=== PATIENT | female | born 1980 | race Caucasian/White ===

== ENCOUNTER 2020-08-05 06:53 | Outpatient (REF) | payer OTHER, SELFPAY ==
[2020-08-06 18:41] LABS: Follicle Stimulating Hormone 4.1 mIU/mL
== END 2020-08-05 06:54 | disposition home or self-care (01) ==
LOC: HO.LAB 06:53
PROVIDERS: PCP Nurse Practitioner Family; Visit Provider Advanced Practice Midwife
DX: N92.6 Irregular menstruation, unspecified (principal)
CPT/HCPCS: 83001

== ENCOUNTER 2020-08-19 11:13 | Outpatient (REF) | payer OTHER, SELFPAY ==
--- NOTE | 2020-08-19 | US_ITS ---
EXAMINATION: US PELVIS COMPLETE. US TRANSVAGINAL CLINICAL INFORMATION: Irregular menstruation. COMPARISON: None TECHNIQUE: Transabdominal and transvaginal ultrasound of the pelvis is performed. FINDINGS: The uterus is anteverted measuring 10.3 cm in length, 3.5 cm in AP and 5.0 cm wide. The endometrial thickness is 0.5 cm. No focal lesion seen. The cervix appears unremarkable. Right ovary measures 3.1 x 3.0 x 1.7 cm and volume of 8.3 mL. There is a complex echogenic heterogeneous cyst likely hemorrhagic cyst measuring 2.1 x 1.7 x 1.9 cm. Previously right ovary measured 2.7 x 1.3 x 2.1 cm and volume of 3.9 mL. The left ovary measures 2.6 x 1.1 x 1.8 cm and volume of 2.7 mL. It appears unremarkable. Previously left ovary measured 3.5 x 2.6 x 3.1 cm and 14.5 mL volume. There is no free fluid in the cul-de-sac. US/US transvaginal IMPRESSION: Complex hemorrhagic cyst in right ovary. The uterus and left ovary is unremarkable.
--- NOTE | 2020-08-19 11:50 | US_ITS ---
EXAMINATION: US PELVIS COMPLETE. US TRANSVAGINAL CLINICAL INFORMATION: Irregular menstruation. COMPARISON: None TECHNIQUE: Transabdominal and transvaginal ultrasound of the pelvis is performed. FINDINGS: The uterus is anteverted measuring 10.3 cm in length, 3.5 cm in AP and 5.0 cm wide. The endometrial thickness is 0.5 cm. No focal lesion seen. The cervix appears unremarkable. Right ovary measures 3.1 x 3.0 x 1.7 cm and volume of 8.3 mL. There is a complex echogenic heterogeneous cyst likely hemorrhagic cyst measuring 2.1 x 1.7 x 1.9 cm. Previously right ovary measured 2.7 x 1.3 x 2.1 cm and volume of 3.9 mL. The left ovary measures 2.6 x 1.1 x 1.8 cm and volume of 2.7 mL. It appears unremarkable. Previously left ovary measured 3.5 x 2.6 x 3.1 cm and 14.5 mL volume. There is no free fluid in the cul-de-sac. US/US pelvic complete IMPRESSION: Complex hemorrhagic cyst in right ovary. The uterus and left ovary is unremarkable.
== END 2020-08-19 11:14 | disposition home or self-care (01) ==
LOC: HO.US 11:13
PROVIDERS: PCP Nurse Practitioner Family; Visit Provider Advanced Practice Midwife
DX: N92.6 Irregular menstruation, unspecified (principal)
CPT/HCPCS: 76830; 76856

== ENCOUNTER → 2020-09-02 15:18 | Outpatient (BNVA) | payer OTHER, MEDICAID, SELFPAY | PROVIDERS: PCP Nurse Practitioner Family; Visit Provider Advanced Practice Midwife | DX: Z76.89 Persons encountering health services in other specified circumstances (principal) ==

== ENCOUNTER 2020-11-02 09:32 | Outpatient (REF) | payer OTHER, SELFPAY ==
--- NOTE | 2020-11-02 09:30 | EMG_ITS ---
HISTORY OF PRESENT ILLNESS: This is a 39-year-old woman, who has intermittent numbness in the big toes and pain and numbness in the lateral aspect of the right leg that started in last winter about a year ago. It has been worse since November. She is on no medications, has no other medical problems. PHYSICAL EXAMINATION: On examination, she is alert and oriented with normal intellectual functions. Her cranial nerves II through XII are normal. Muscle tone and strength are normal in all 4 extremities. Deep tendon reflexes symmetrical, 2+, plantar responses are flexor. IMPRESSION: Rule out peripheral neuropathy. Nerve conduction study: Normal motor and sensory nerve conduction study of the lower extremities. Normal EMG of the right L4-S1 innervated muscles. MD CINTHIA Galdamez/MADAN / [id number]
== END 2020-11-02 09:33 | disposition home or self-care (01) ==
LOC: HO.NEURO 09:32
PROVIDERS: PCP Nurse Practitioner Family; Visit Provider Nurse Practitioner Family
DX: M54.5 Low back pain (principal); R20.2 Paresthesia of skin
CPT/HCPCS: 95860; 95886; 95912

== ENCOUNTER 2020-11-05 08:52 | Outpatient (REF) | payer OTHER, SELFPAY ==
[2020-11-05 09:28] LABS: Hematocrit 40.2 % (37-47); Hemoglobin 13.5 g/dl (12.0-16.0); Mean Corpuscular HGB Conc 33.6 g/dl (31.0-35.0); Mean Corpuscular Hemoglobin 29.9 pg (27.0-33.0); Mean Corpuscular Volume 89.1 fL (80-98); Mean Platelet Volume 9.3 fL (9.4-12.3); Platelet Count 285 X10*3/uL (160-400); Red Blood Count 4.51 X10*6/uL (4.20-5.50); Red Cell Distribution Width 12.1 % (11.0-16.0); White Blood Count 6.3 X10*3/uL (4.8-10.8)
[2020-11-05 09:50] LABS: Alanine Aminotransferase 13 U/L (0-31); Albumin Level 4.4 g/dL (3.5-5.0); Alkaline Phosphatase 84 U/L (39-117); Anion Gap 13 (12-20); Aspartate Amino Transferase 21 U/L (5-31); Bilirubin Total 0.6 mg/dL (0.0-1.0); Blood Urea Nitrogen 15 mg/dL (9-16); Calcium 9.4 mg/dL (8.4-10.2); Carbon Dioxide 31 mmol/L (22-29); Chloride 102 mmol/L (96-108); Cholesterol 203 mg/dL; Estimated Glomerular Filt Rate > 60; Glucose Fasting 106 mg/dL (60-99); HDL Cholesterol 72 mg/dL; LDL Cholesterol Calculated 117 mg/dl; Potassium 4.4 mmol/l (3.3-5.1); Sodium 142 mmol/L (135-145); Total Protein 7.4 g/dL (6.5-8.0); Triglycerides 74 mg/dL
[2020-11-05 10:12] LABS: TSH reflex Free T4 2.13 mIU/mL (0.32-4.0); Vitamin D 25-OH Total 29.6 ng/mL (>30)
[2020-11-05 11:38] LABS: Estimated Average Glucose 105 mg/dL; Hemoglobin A1c % 5.3 %
[2020-11-07 04:28] LABS: Folate 18.7 ng/mL (> or = 4.0); Vitamin B12 509 pg/mL (200-900)
[2020-11-09 12:17] LABS: Vitamin B1 22 nmol/L (8-30)
== END 2020-11-05 08:53 | disposition home or self-care (01) ==
LOC: HO.LAB 08:52
PROVIDERS: PCP Nurse Practitioner Family; Visit Provider Nurse Practitioner Family
DX: E55.9 Vitamin D deficiency, unspecified (principal); K58.0 Irritable bowel syndrome with diarrhea; R20.2 Paresthesia of skin
CPT/HCPCS: 36415; 80053; 80061; 82306; 82607; 82746; 83036; 84425; 84443; 85027

== ENCOUNTER 2020-11-07 13:40 | Outpatient (REF) | payer OTHER, SELFPAY ==
--- NOTE | 2020-11-07 13:46 | US_ITS ---
EXAMINATION: US PELVIS COMPLETE US TRANSVAGINAL CLINICAL INFORMATION: Right ovarian cyst. COMPARISON: Ultrasound pelvis 08/19/2020 TECHNIQUE: Transabdominal and transvaginal ultrasound of the pelvis was performed. FINDINGS: The uterus is anteflexed and anteverted measuring 7.9 cm in length, 3.3 cm in AP and 4.6 cm in transverse dimension. The endometrial thickness is 0.6 cm. No focal uterine lesions seen. There are small nabothian cysts seen in the cervix. Both ovaries are not seen well. There is no free fluid in the cul-de-sac. US/US transvaginal IMPRESSION: Multiple small cervical nabothian cysts. The uterus is unremarkable. The ovaries are not seen.
--- NOTE | 2020-11-07 13:46 | US_ITS ---
EXAMINATION: US PELVIS COMPLETE US TRANSVAGINAL CLINICAL INFORMATION: Right ovarian cyst. COMPARISON: Ultrasound pelvis 08/19/2020 TECHNIQUE: Transabdominal and transvaginal ultrasound of the pelvis was performed. FINDINGS: The uterus is anteflexed and anteverted measuring 7.9 cm in length, 3.3 cm in AP and 4.6 cm in transverse dimension. The endometrial thickness is 0.6 cm. No focal uterine lesions seen. There are small nabothian cysts seen in the cervix. Both ovaries are not seen well. There is no free fluid in the cul-de-sac. US/US pelvic complete IMPRESSION: Multiple small cervical nabothian cysts. The uterus is unremarkable. The ovaries are not seen.
== END 2020-11-07 13:41 | disposition home or self-care (01) ==
LOC: HO.US 13:40
PROVIDERS: PCP Nurse Practitioner Family; Visit Provider Advanced Practice Midwife
DX: N83.291 Other ovarian cyst, right side (principal)
CPT/HCPCS: 76830; 76856

== ENCOUNTER → 2020-11-09 12:18 | Outpatient (BNVA) | payer OTHER, SELFPAY | PROVIDERS: PCP Nurse Practitioner Family; Visit Provider Advanced Practice Midwife | DX: Z76.89 Persons encountering health services in other specified circumstances (principal) ==

== ENCOUNTER 2020-12-27 13:03 | Outpatient (REF) | payer OTHER, SELFPAY ==
[2020-12-28 11:26] LABS: Follicle Stimulating Hormone 63.3 mIU/mL
== END 2020-12-27 13:04 | disposition home or self-care (01) ==
LOC: HO.LAB 13:03
PROVIDERS: PCP Nurse Practitioner Family; Visit Provider Advanced Practice Midwife
DX: R23.2 Flushing (principal); N92.6 Irregular menstruation, unspecified; Z32.02 Encounter for pregnancy test, result negative
CPT/HCPCS: 36415; 81025; 83001

== ENCOUNTER 2021-01-25 06:43 | Outpatient (REF) | payer OTHER, SELFPAY ==
[2021-01-25 07:34] LABS: Hematocrit 39.5 % (37-47); Hemoglobin 13.4 g/dl (12.0-16.0); Mean Corpuscular HGB Conc 33.9 g/dl (31.0-35.0); Mean Corpuscular Hemoglobin 30.2 pg (27.0-33.0); Mean Platelet Volume 9.6 fL (9.4-12.3); Platelet Count 281 X10*3/uL (160-400); Red Blood Count 4.44 X10*6/uL (4.20-5.50); Red Cell Distribution Width 12.5 % (11.0-16.0); White Blood Count 5.3 X10*3/uL (4.8-10.8)
[2021-01-25 07:52] LABS: Anion Gap 12 (12-20); Blood Urea Nitrogen 13 mg/dL (9-16); Calcium 8.7 mg/dL (8.4-10.2); Carbon Dioxide 28 mmol/L (22-29); Chloride 104 mmol/L (96-108); Cholesterol 196 mg/dL; Estimated Glomerular Filt Rate > 60; Glucose Random 112 mg/dL (60-115); HDL Cholesterol 62 mg/dL; LDL Cholesterol Calculated 112 mg/dl; Potassium 4.2 mmol/L (3.3-5.1); Sodium 140 mmol/L (135-145); Triglycerides 113 mg/dL
[2021-01-25 08:02] LABS: Estimated Average Glucose 97 mg/dL
[2021-01-25 08:13] LABS: TSH reflex Free T4 3.63 uIU/mL (0.32-4.0); Vitamin D 25-OH Total 23.1 ng/mL (>30)
== END 2021-01-25 06:44 | disposition home or self-care (01) ==
LOC: HO.LAB 06:43
PROVIDERS: PCP Nurse Practitioner Family; Visit Provider Nurse Practitioner Family
DX: E55.9 Vitamin D deficiency, unspecified (principal); K58.0 Irritable bowel syndrome with diarrhea; Z71.89 Other specified counseling
CPT/HCPCS: 36415; 80048; 80061; 82306; 83036; 84443; 85027

== ENCOUNTER → 2021-03-17 14:39 | Outpatient (BNVA) | payer OTHER, SELFPAY | PROVIDERS: Visit Provider Advanced Practice Midwife | DX: Z32.02 Encounter for pregnancy test, result negative (principal); R23.2 Flushing ==

== ENCOUNTER → 2021-06-08 13:58 | Outpatient (BNVA) | payer OTHER, SELFPAY | PROVIDERS: Visit Provider Nurse Practitioner ==

== ENCOUNTER 2021-06-14 15:13 | Outpatient (REF) | payer OTHER, SELFPAY ==
--- NOTE | 2021-06-14 16:35 | MHC.AU.ANR ---
Adult Audiological Evaluation Date of Visit: 06/14/21 Reason for Appointment: Audiological evaluation due to concern for tinnitus, decreased hearing, and middle-ear dysfunction in the left ear. Patient reports that ~4 weeks ago her hearing decreased significantly in her left ear and she had an ear infection. She was treated with antibiotics, allergy medication, and nasal spray. She states that it took about 3 weeks to get relief and on SaturdayJune 10 her hearing in the left ear finally began to improve. She notes that she now hears constant ringing in the left ear even since her hearing has improved, which she finds bothersome and affects her ability to fall asleep. She notes continued intermittent pain in the left ear. She denies any concerns for hearing for her right ear or concerns for the left ear prior to this recent ear infection. Does patient feel they have a hearing loss?: Yes If Yes, Which Ear?: Left Ear When Was Hearing Difficulty First Noticed?: ~ 4 weeks ago Has hearing been tested previously?: No Hearing Handicap Inventory: HHIE SCORE: 12 Based on HHIE score, patient has: Mild to moderate perceived hearing handicap Ear History: Recent Ear Pain: Left Ear Recent Ear Infections: Left Ear Bothersome Tinnitus/Ringing/Noises in Ears: Left Ear Medical History: Medical History: Headache, Migraines Medical History (Other): Allergies, previously got allergy shots Allergies: Seafood Medication List: Sumatriptan succinate 50 mg PRN, Nortriptyline HCl 50 mg daily, Flonase, Creon before eating, cholestyramine, baclofen 10 mg PRN, ipratropium bromide nasal spray, Ciprodex ear drops, loratadine 10 mg Otoscopy: Right Ear: Unremarkable Left Ear: Unremarkable Tympanometry: Tympanometry performed due to: History of middle ear dysfunction Right Ear: Normal Middle Ear System (Type A) Left Ear: Hypercompliant Middle Ear System (Type Ad) Hearing Evaluation: Transducer(s) Used: Insert Earphones, Bone Conduction Method: Conventional Audiometry Stimuli Used: Pure Tones Right Ear: Description of Hearing: Normal hearing from 250-8000 Hz. Left Ear: Description of Hearing: Normal hearing from 250-8000 Hz. Hearing in the left ear is 10 dBHL worse at 250 Hz and 15 dBHL worse at 500 Hz than the right ear. Speech Recognition Threshold (SRT): Method Used: Monitored Live Voice Stimuli Used: Spondee Words Right Ear: 0 dBHL Left Ear: 10 dBHL Word Discrimination: Method: Recorded Lists Word Lists Used: NU-6 Right Ear: 100% at 50 dBHL Left Ear: 100% at 50 dBHL Recommendations: Audiological re-evaluation if changes are noted. Overall normal hearing today. Recommend patient monitor her symptoms and return for a repeat audiogram if changes are noted. If patient frequently gets otitis media, may consider a consultation with otolaryngology. Diagnosis: Primary Diagnosis: H93.12 Tinnitus, Left Ear Secondary Diagnosis: H69.92 Unspecified Eustachian Tube Dysfunction, Left Ear Services Performed: Services Performed: Comprehensive Audiological Evaluation (CPT 98924) Tympanometry (CPT 19301) Signature: Provider: Mandi Olivarez, [facility]
== END 2021-06-14 15:14 | disposition home or self-care (01) ==
LOC: HO.SH 15:13
PROVIDERS: Visit Provider General Practice
DX: H93.12 Tinnitus, left ear (principal); H69.92 Unspecified Eustachian tube disorder, left ear
CPT/HCPCS: 92557; 92567

== ENCOUNTER → 2021-07-31 15:43 | Outpatient (BNVA) | payer OTHER, SELFPAY | PROVIDERS: Visit Provider Nurse Practitioner ==

== ENCOUNTER → 2021-09-25 14:58 | Outpatient (BNVA) | payer OTHER, SELFPAY | PROVIDERS: Visit Provider Nurse Practitioner ==

== ENCOUNTER → 2021-12-19 10:42 | Outpatient (REF) | payer OTHER, SELFPAY ==
--- NOTE | ~2021-12-19 | NM_ITS ---
EXAMINATION: NM BONE SCAN OF THE WHOLE BODY CLINICAL INFORMATION: Lumbago with sciatica right side COMPARISON: No previous bone scan or recent radiographs are available for comparison. TECHNIQUE: Multiple gamma scintillation camera images of the whole body were performed 2.5 hours following the intravenous administration of 28 mCi Tc-99m MDP. FINDINGS: In the head, no significant abnormalities are present. In the thoracic cage and upper extremities, there is minimally increased activity in the sternoclavicular joints bilaterally. In the spine, there is minimally increased activity in the right side of the lumbosacral junction, probably in the right transverse process of L5. In the pelvis, no significant abnormalities are present. In the lower extremities, no significant abnormalities are present. No other definite bony abnormalities are noted. The urinary bladder and faint visualization of both kidneys are noted. NM/NM bone scan whole body IMPRESSION: Minimal equivocal abnormality in the right paravertebral region at L5/S1 is suggested. This could be due to a pseudoarthrosis of the right transverse process with the adjacent posterior right iliac bone or possibly facet arthropathy at L5/S1. The abnormality is very mild and considered equivocal. Correlation of plain radiographs of the lumbosacral spine and posterior pelvis is recommended for initial follow-up.
== END ==
LOC: HO.NUCMED 10:42
PROVIDERS: PCP Nurse Practitioner; Visit Provider Internal Medicine
DX: M54.41 Lumbago with sciatica, right side (principal)
CPT/HCPCS: 78306; A9503

== ENCOUNTER 2022-02-22 07:00 | Outpatient (RCR) | payer OTHER, SELFPAY | END 2022-05-17 08:14 | disposition home or self-care (01) | LOC: HO.PTWFD 07:00 | PROVIDERS: PCP Nurse Practitioner; Visit Provider Internal Medicine | DX: M54.41 Lumbago with sciatica, right side (principal) | CPT/HCPCS: 97012; 97014; 97035; 97110; 97140; 97162; 97164; 97530; 97535 ==

== ENCOUNTER 2022-04-03 14:26 | Outpatient (REF) | payer OTHER, SELFPAY ==
[2022-04-03 18:16] LABS: NG PCR NOT DETECTED (Not Detect.)
[2022-04-03 18:17] LABS: CT PCR NOT DETECTED (Not Detect.)
[2022-04-04 13:02] LABS: BV Int Neg Control Negative (Negative); BV Int Pos Control Positive (Positive)
[2022-04-07 02:47] LABS: HPV mRNA E6/E7 rflx Not Detected (Not Detected)
== END 2022-04-03 14:27 | disposition home or self-care (01) ==
LOC: HO.LAB 14:26
PROVIDERS: PCP Nurse Practitioner; Visit Provider Advanced Practice Midwife
DX: Z01.411 Encounter for gynecological examination (general) (routine) with abnormal findings (principal); Z11.51 Encounter for screening for human papillomavirus (HPV); N92.6 Irregular menstruation, unspecified; N89.8 Other specified noninflammatory disorders of vagina
CPT/HCPCS: 87480; 87491; 87510; 87591; 87624; 87660; 88142

== ENCOUNTER 2022-04-14 07:09 | Outpatient (REF) | payer OTHER, SELFPAY ==
[2022-04-14 07:58] LABS: Cholesterol 186 mg/dL; HDL Cholesterol 59 mg/dL; LDL Cholesterol Calculated 116 mg/dl; Triglycerides 58 mg/dL
[2022-04-14 08:20] LABS: Vitamin D 25-OH Total 21.7 ng/mL (>30)
[2022-04-14 08:21] LABS: Thyroid Stimulating Hormone 1.96 uIU/mL (0.32-4.0)
[2022-04-16 04:00] LABS: HBc Num1 0.08 S/CO (0.00-0.79); HIV AB/AG Nonreactive (Nonreactive); HIV Num 1 0.05 S/CO (0.00-0.99); Hepatitis B Core Antibody Nonreactive (Nonreactive); ~HepC Num1 0.05 S/CO (0.00-0.79); ~Hepatitis C Antibody Nonreactive (Nonreactive)
[2022-04-16 05:58] LABS: Syphilis Screen Nonreactive (Nonreactive)
== END 2022-04-14 07:10 | disposition home or self-care (01) ==
LOC: HO.LAB 07:09
PROVIDERS: Absent Provider Nurse Practitioner; PCP Nurse Practitioner; Visit Provider Advanced Practice Midwife
DX: Z00.00 Encounter for general adult medical examination without abnormal findings (principal); Z11.4 Encounter for screening for human immunodeficiency virus [HIV]; E55.9 Vitamin D deficiency, unspecified; Z20.2 Contact with and (suspected) exposure to infections with a predominantly sexual mode of transmission; N92.6 Irregular menstruation, unspecified
CPT/HCPCS: 36415; 80061; 82306; 83001; 84443; 86704; 86780; 86803; 87389

== ENCOUNTER 2022-04-20 11:13 | Outpatient (REF) | payer OTHER, SELFPAY ==
--- NOTE | ~2022-04-20 | MM_ITS ---
EXAMINATION: MM SCREENING DIGITAL BREAST TOMOSYNTHESIS, BILATERAL CLINICAL INFORMATION: Screening. Asymptomatic. Age 41. No prior breast imaging. No known family history breast cancer. The lifetime risk of breast cancer based on the Tyrer-Cuzick Model is 8%. COMPARISON: None (current study represents initial baseline exam). TECHNIQUE: Digital breast tomosynthesis is performed in both the craniocaudal and mediolateral oblique views along with computer-aided detection (CAD). Synthesized 2D images are generated from the tomosynthesis. FINDINGS: There are scattered areas of fibroglandular density (ACR BI-RADS breast composition Category b). There are no significant masses, abnormal calcifications, or other abnormalities. The axilla and skin contours are unremarkable. MM/MM tomosynthesis screening BI IMPRESSION: No mammographic evidence of malignancy. ASSESSMENT: BI-RADS 1: Negative RECOMMENDATION: Routine annual mammography screening. This patient's information was entered into a reminder system with a target due date for their next mammogram.
== END 2022-04-20 11:14 | disposition home or self-care (01) ==
LOC: HO.MAMMO 11:13
PROVIDERS: PCP Nurse Practitioner; Visit Provider Advanced Practice Midwife
DX: Z12.31 Encounter for screening mammogram for malignant neoplasm of breast (principal)
CPT/HCPCS: 77063; 77067

== ENCOUNTER → 2022-05-17 13:13 | Outpatient (BNVA) | payer OTHER, SELFPAY | PROVIDERS: PCP Nurse Practitioner; Visit Provider Internal Medicine | DX: M77.11 Lateral epicondylitis, right elbow (principal) | CPT/HCPCS: 99203 ==

== ENCOUNTER → 2022-05-24 07:45 | Outpatient (BNVA) | payer OTHER, SELFPAY | PROVIDERS: PCP Nurse Practitioner; Visit Provider Internal Medicine | DX: M77.11 Lateral epicondylitis, right elbow (principal) | CPT/HCPCS: 99213 ==

== ENCOUNTER 2022-06-07 08:45 | Outpatient (REF) | payer OTHER, SELFPAY ==
--- NOTE | ~2022-06-07 | XR_ITS ---
EXAMINATION: XR SACROILIAC JOINTS CLINICAL INFORMATION: Pain. COMPARISON: None TECHNIQUE: AP and bilateral Judet views of the sacroiliac joints FINDINGS: Bones and soft tissues are normal. No fracture. Alignment is anatomic. Sacroiliac joint spaces are well-maintained without erosions or surrounding sclerosis. XR/XR sacroiliac joint min 3V IMPRESSION: Normal sacroiliac joints. EXAMINATION: XR LUMBOSACRAL SPINE CLINICAL INFORMATION: Spondylosis without myelopathy or radiculopathy. COMPARISON: None TECHNIQUE: AP, bilateral oblique and lateral (neutral, flexion and extension) views of the lumbar spine and lateral view of the lumbosacral junction. FINDINGS: Vertebral body heights are normal. At L5-S1, there is a 2 mm retrolisthesis and mild posterior disc space narrowing. The remaining disc spaces are preserved. There is no acute fracture or spondylolisthesis. No instability is seen with flexion or extension. The posterior elements are intact. No spondylolysis defect is seen on the oblique views. The paraspinal soft tissues are normal. IMPRESSION: 1. There is mild degenerative disc disease at L5-S1. 2. No acute fracture or spondylolisthesis is seen. There is no spondylolysis defect. 3. There is no instability with flexion or extension.
--- NOTE | ~2022-06-07 | XR_ITS ---
EXAMINATION: XR SACROILIAC JOINTS CLINICAL INFORMATION: Pain. COMPARISON: None TECHNIQUE: AP and bilateral Judet views of the sacroiliac joints FINDINGS: Bones and soft tissues are normal. No fracture. Alignment is anatomic. Sacroiliac joint spaces are well-maintained without erosions or surrounding sclerosis. XR/XR lumbar spine 6V w bending IMPRESSION: Normal sacroiliac joints. EXAMINATION: XR LUMBOSACRAL SPINE CLINICAL INFORMATION: Spondylosis without myelopathy or radiculopathy. COMPARISON: None TECHNIQUE: AP, bilateral oblique and lateral (neutral, flexion and extension) views of the lumbar spine and lateral view of the lumbosacral junction. FINDINGS: Vertebral body heights are normal. At L5-S1, there is a 2 mm retrolisthesis and mild posterior disc space narrowing. The remaining disc spaces are preserved. There is no acute fracture or spondylolisthesis. No instability is seen with flexion or extension. The posterior elements are intact. No spondylolysis defect is seen on the oblique views. The paraspinal soft tissues are normal. IMPRESSION: 1. There is mild degenerative disc disease at L5-S1. 2. No acute fracture or spondylolisthesis is seen. There is no spondylolysis defect. 3. There is no instability with flexion or extension.
== END 2022-06-07 08:46 | disposition home or self-care (01) ==
LOC: HO.XRAY 08:45
PROVIDERS: PCP Nurse Practitioner; Visit Provider Nurse Practitioner Family
DX: M47.816 Spondylosis without myelopathy or radiculopathy, lumbar region (principal); M54.16 Radiculopathy, lumbar region; M53.3 Sacrococcygeal disorders, not elsewhere classified
CPT/HCPCS: 72114; 72202

== ENCOUNTER → 2022-06-11 07:54 | Outpatient (BNVA) | payer OTHER, SELFPAY | PROVIDERS: PCP Nurse Practitioner; Visit Provider Internal Medicine | DX: M77.11 Lateral epicondylitis, right elbow (principal) | CPT/HCPCS: 99213 ==

== ENCOUNTER → 2022-06-20 14:03 | Outpatient (BNVA) | payer OTHER, SELFPAY | PROVIDERS: PCP Nurse Practitioner; Visit Provider Nurse Practitioner Family | DX: M54.16 Radiculopathy, lumbar region (principal); M47.816 Spondylosis without myelopathy or radiculopathy, lumbar region; M53.3 Sacrococcygeal disorders, not elsewhere classified; M62.830 Muscle spasm of back | CPT/HCPCS: 99212 ==

== ENCOUNTER → 2022-07-03 07:52 | Outpatient (BNVA) | payer OTHER, SELFPAY | PROVIDERS: PCP Nurse Practitioner; Visit Provider Internal Medicine | DX: M77.11 Lateral epicondylitis, right elbow (principal) | CPT/HCPCS: 99213 ==

== ENCOUNTER 2022-07-11 15:00 | Outpatient (RCR) | payer OTHER, SELFPAY | END 2022-08-13 16:23 | disposition home or self-care (01) | LOC: HO.OT 15:00 | PROVIDERS: Visit Provider Internal Medicine | DX: M77.11 Lateral epicondylitis, right elbow (principal) | CPT/HCPCS: 97035; 97110; 97140; 97165 ==

== ENCOUNTER → 2022-08-10 15:25 | Outpatient (BNVA) | payer OTHER, SELFPAY | PROVIDERS: PCP Nurse Practitioner; Visit Provider Internal Medicine | DX: M77.11 Lateral epicondylitis, right elbow (principal) | CPT/HCPCS: 99213 ==

== ENCOUNTER 2023-06-27 09:48 | Outpatient (AMB) | payer OTHER, SELFPAY ==
--- NOTE | 2023-06-27 10:01 | A.OFFVIS_ITS ---
Intake Intake Visit Reasons: soft tissue mass of breast and axilla Intake Note: Patient is seen in office for evaluation of a soft tissue mass of the left axilla. Patient c/o: feel lump under the axilla since January 2023, admits to pain, denies discharge, redness, discoloration, nausea, vomit, diarrhea, constipation, no prior breast surgeries or complications Certified Nursing Assistant Required: No Accompanied by: Self / Same As Patient Allergies amoxicillin [AMOXICILLIN] Allergy (Intermediate, Verified 06/27/23 10:06) HIVES, vomiting, fever Seafood Allergy (Mild, Uncoded 06/27/23 10:06) RASH Medication List - Last Reconciled 06/27/23 by Mike Noriega MD cholecalciferol (vitamin D3) 50 mcg PO DAILY diclofenac potassium 50 mg PO BID PRN 30 days fluticasone propionate 50 mcg/actuation 1 spray intranasal BID gabapentin 100 mg PO TID fwloey-xzjalnxg-stajxmy 3,000-9,500- 15,000 unit (Creon) PO loratadine 10 mg PO DAILY PRN methocarbamol 750 mg PO Q8H PRN 30 days metronidazole 500 mg PO BID 7 days HPI HPI Comments History of Present Illness Details 42-year-old female patient presenting with a soft tissue mass located in the left axilla. She 1st noted the lump in January 2023 but denies any significant change in size since this time. 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 She denies any redness, discharge, fever, chills or associated symptoms. She was initially evaluated by a walk-in clinic and felt to have lymphadenopathy therefore was placed on oral antibiotics. She did note a slight improvement in the symptoms however the lump remained. She recently underwent mammogram and ultrasound which revealed no suspicious findings in the breast (BI-RADS 2). Ultrasound did revealed a 3.9 x 4.4 x 1.2 cm soft tissue mass suggestive of a lipoma in the left axilla. She is requesting excision of this painful lipoma. [facility] Medical History Epigastric pain Irregular menses Migraine Seasonal allergies Surgical History Hx of tubal ligation Family History Mother Ovarian cancer Maternal Grandmother HTN (hypertension) Social History Alcohol intake: never Gender identity: Female Female Reproductive History Menstrual Age of Menarche: 11 Date of last menstrual period: 06/27/23 Total pregnancies: 3 Number of Living Children: 3 Review of Systems Const All systems reviewed & are unremarkable except as noted in HPI and below Denies chills, Denies fever(s), Denies headache(s), Denies poor appetite and Denies weakness ENT Denies headache(s) Card Denies chest pain, Denies irregular heart rhythm, Denies palpitations and Denies dyspnea Resp Denies cough, Denies excessive phlegm production and Denies dyspnea GI Denies abdominal pain, Denies bloating, Denies change in bowel habits, Denies constipation, Denies heartburn, Denies diarrhea, Denies nausea and Denies vomi ting Denies urinary frequency Musc Denies back pain, Denies muscle weakness and Denies numbness Skin/Breast Reports as per HPI, Denies changing lesions and Denies unusual bruising Neuro Denies headache(s), Denies numbness, Denies paresthesias and Denies weakness Psych Denies anxiety and Denies depression Endo Denies palpitations Jimbo/Lymph Denies lymphadenopathy Physical Exam Const General: cooperative and no acute distress Nutritional Appearance: well nourished Orientation/consciousness: patient oriented x3 Limitations: no limitations HEENT Head: Yes normocephalic and Yes atraumatic Ears: hearing grossly normal bilaterally Chest Chest/axillae images: 1. Soft tissue mass located in the left axilla towards the tail of the breast suggestive of either a large lipoma measuring approximately 4 cm verses axillary breast tissue. Lesion is very tender to palpation but no overlying changes to suggest infection. Resp Effort & Inspection: normal respiratory effort, no audible wheezes, no cough and no respiratory distress Cardio Jugular venous distension: no JVD GI Inspection: Yes normal to inspection Skin Other: Warm, dry, no rash Neuro General: patient oriented x3 Extrem General: Yes no clubbing, cyanosis or edema Assessment & Plan Assessment & Plan (1) Lipoma of left axilla: Code(s): D17.22 - Benign lipomatous neoplasm of skin and subcutaneous tissue of left arm Plan 42-year-old female patient presenting with a soft tissue mass in left axilla which is tender to palpation. On examination there is a 4 cm superficial soft tissue mass suggestive of a lipoma or axillary breast tissue. As the patient is never noted swelling during her , axillary breast tissue is less likely. Patient has requested excision of this soft tissue mass. I recommended an excision under general anesthesia. After discussion of the procedure, risks, and alternatives, she consents to excision of the left axillary lipoma. Coding Level of Care Code New Pt Level 4 (46873) Diagnoses Lipoma of left axilla D17.22
== END 2023-06-27 10:30 | disposition home or self-care (01) ==
PROVIDERS: PCP Nurse Practitioner Primary Care; Visit Provider Surgery
DX: D17.22 Benign lipomatous neoplasm of skin and subcutaneous tissue of left arm (principal)
CPT/HCPCS: 99204

== ENCOUNTER → 2023-06-27 09:48 | Outpatient (BNVA) | payer OTHER, SELFPAY | PROVIDERS: PCP Nurse Practitioner Primary Care; Visit Provider Surgery ==

== ENCOUNTER 2023-07-24 05:58 | Day surgery (SDC) | payer OTHER, SELFPAY ==
--- NOTE | 2023-07-23 10:28 | P.CONAN_ITS ---
Documented by User: Tania Deal NP 07/23/23 10:30 HPI - Anesthesia Eval Consult details Narrative: 42yo F for Left Excision axillary Lipoma s/p tubal PMFSH Active Problems Active Problems: All Active Problems (Updated 07/22/23 @ 13:38 by Fidelina العراقي RN) Lipoma of left axilla (Acute) Muscle spasm of back (Acute) Lumbar radiculopathy, right (Acute) Lumbar spondylosis (Acute) Sacroiliac joint dysfunction (Acute) Vaginal discharge (Acute) Encounter for annual routine gynecological examination (Acute) GERD (gastroesophageal reflux disease) (Acute) Abdominal cramping (Acute) Hot flashes (Acute) Irregular menstrual cycle (Acute) Complex cyst of right ovary (Acute) Irritable bowel syndrome with diarrhea (Acute) Past Medical History Medical History GERD (gastroesophageal reflux disease) Epigastric pain Seasonal allergies Migraine Irregular menses Family History Family History Mother Ovarian cancer Maternal Grandmother HTN (hypertension) Surgical History Surgical History Hx of tubal ligation Social History Social History Alcohol intake: never Patient Tobacco Use Status: Never used Tobacco Gender identity: Female Meds Allergies Allergy/AdvReac Type Severity Reaction Status Date / Time amoxicillin [AMOXICILLIN] Allergy Intermediate HIVES, Verified 06/27/23 10:06 vomiting, fever Seafood Allergy Mild RASH Uncoded 06/27/23 10:06 Home Medications Medication Instructions Recorded Confirmed Last Taken Type fluticasone propionate 50 1 spray intranasal BID 09/02/20 07/22/23 Unknown History mcg/actuation nasal spray,suspension loratadine 10 mg tablet 10 mg PO DAILY PRN Allergy Symptoms 09/02/20 07/22/23 Unknown History gabapentin 100 mg capsule 100 mg PO TID 04/03/22 07/22/23 Unknown History lipase 3,000-protease 1 cap PO DAILY 04/03/22 07/22/23 Unknown History 9,500-amylase 15,000 unit capsule, delayed rel (Creon) cholecalciferol (vitamin D3) 50 50 mcg PO DAILY 05/31/22 07/22/23 Unknown History mcg (2,000 unit) capsule Exam Exam Date and Time: July 23, 2023 1028 Height,Weight and Vital Signs: Height 5 ft 4 in Weight 79.379 kg Assessment and Plan Assessment Anesthesia Assessment: Chart Reviewed Documented by User: Manny Hernandez MD 07/24/23 07:26 [facility] Past Medical History Medical History GERD (gastroesophageal reflux disease) Epigastric pain Seasonal allergies Migraine Irregular menses Patient : No Family History Family History Mother Ovarian cancer Maternal Grandmother HTN (hypertension) Family history of problems with anesthesia: No Surgical History Surgical History Hx of tubal ligation History of Problems with Anesthesia: No Social History Social History Alcohol intake: never Patient Tobacco Use Status: Never used Tobacco Gender identity: Female Meds Allergies Allergy/AdvReac Type Severity Reaction Status Date / Time amoxicillin [AMOXICILLIN] Allergy Intermediate HIVES, Verified 06/27/23 10:06 vomiting, fever Seafood Allergy Mild RASH Uncoded 06/27/23 10:06 Home Medications Medication Instructions Recorded Confirmed Last Taken Type fluticasone propionate 50 1 spray intranasal BID 09/02/20 07/22/23 Unknown History mcg/actuation nasal spray,suspension loratadine 10 mg tablet 10 mg PO DAILY PRN Allergy Symptoms 09/02/20 07/22/23 Unknown History gabapentin 100 mg capsule 100 mg PO TID 04/03/22 07/22/23 Unknown History lipase 3,000-protease 1 cap PO DAILY 04/03/22 07/22/23 Unknown History 9,500-amylase 15,000 unit capsule, delayed rel (Creon) cholecalciferol (vitamin D3) 50 50 mcg PO DAILY 05/31/22 07/22/23 Unknown History mcg (2,000 unit) capsule Exam Airway Mallampati Class: II TM Dist: <=3cm Neck ROM: Full Loose/Missing/Broken Teeth: No Heart: ok Lungs: ok Assessment and Plan Assessment Anesthesia Assessment: Anesthesia Plan Discussed Final Anesthetic Review Family History of Problems with Anesthesia: No History of Problems with Anesthesia: No NPO: Yes ASA Class: II Final Preanesthetic Review: No Changes in Pt Med Stat, Meds/Allgs Chart Reviewed, Consent Obtained/Reviewed and Anes Risks/Benef Reviewed Patient Risk: Low Procedure Risk: Low Anesthetic Plan Anesthetic Plan: GA and Agree w/ Assess. and Plan Disposition: Standard PACU
[2023-07-24] VITALS (7 sets, daily range): BP systolic 102–128; BP diastolic 61–79; PULSE 57–71; RESP 14–16; TEMP 36.2–36.9; O2SAT 98–100
[2023-07-24] MEDS: Lactated Ringers 1,000 ML 100 ML IVCONT (06:45)
[2023-07-24] MEDS: vancomycin HCL 1,000 MG in 0.9 % Sodium Chloride 250 ML 270 MG IV (06:47)
--- NOTE | 2023-07-24 07:29 | MHC.SHP ---
Pre-Procedural Eval Section A Date of Service: 07/24/23 The patient is an INPATIENT: No Changes since office visit: Yes Patient answered all questions; No Cold of Flu in the past 2 weeks, No New Medical Problems and No Changes in Medication The History & Physical has been completed within 30 days and I have reviewed it.: Yes Section B Chief Complaint: Benign lipomatous neoplasm of skin and subcutaneou Allergies: Allergies Allergy/AdvReac Type Severity Reaction Status Date / Time amoxicillin [AMOXICILLIN] Allergy Intermediate HIVES, Verified 06/27/23 10:06 vomiting, fever Seafood Allergy Mild RASH Uncoded 06/27/23 10:06 Plan Diagnosis/Plan: Unchanged I have reviewed the history and physical and performed a pertinent physical examination on my patient. No changes have occurred unless specified. Time Spent With Patient Time: Total time managing care of this patient today ____ minutes.
--- NOTE | 2023-07-24 08:19 | P.OP_ITS ---
Operative Note Operative Note Date of Service: 07/24/23 Narrative: Preoperative diagnosis: Lipoma left axilla Postoperative diagnosis: Same Procedure: Excision of lipoma left axilla Surgeon: Mike Noriega MD Legal Director: Sally Orr PA-C Anesthesia: General LMA Indications for procedure: 42-year-old female patient presenting with a gradually enlarging soft tissue mass in the left axilla associated with discomfort when lesion is breast or when clothing pushes on the axilla. Operative findings: Lipoma measuring approximately 3 cm in diameter in the superficial, superior left axilla Specimen: Lipoma left axilla Estimated blood loss: 10 mL Complications: None Procedure details: Patient was brought to the OR placed in a supine position. After administering general anesthesia patient's left axilla was prepped with ChloraPrep and draped in a sterile fashion. A surgical time-out was called and the consent confirmed. Patient received preoperative antibiotics and Venodyne boots were in place. Local anesthesia consisting of 0.25% Sensorcaine with e pinephrine was then infiltrated over the lipoma in a transverse fashion. This was then incised with a scalpel and widened down to the superior surface of the lipoma. Electrocautery was used to maintain hemostasis. Electrocautery was also used to dissect the lipoma from the surrounding subcutaneous tissue. The lipoma was excised off the inferior surface of the pectoralis major muscle. Lesion was completely excised and sent to pathology for further examination. Hemostasis again assured using electrocautery. Wounds were irrigated with saline solution and suctioned dry. Deep subcutaneous tissue was then reapproximated using interrupted 3-0 Polysorb sutures. Dermis was reapproximated using interrupted 3-0 Polysorb sutures. Skin was then closed using a running subcuticular 4-0 Polysorb suture. Steri-Strips, 2 x 2 gauze and Tegaderm were then applied. Patient tolerated the procedure well. Sponge, instrument, and needle counts reported correct. The patient was transferred to PACU in stable condition.
[2023-07-24] MEDS: Acetaminophen 325 MG TABLET 650 MG PO (08:54)
[2023-07-24] MEDS: oxyCODONE HCl Immed Release 5 MG TABLET PO (08:54)
== END 2023-07-24 09:54 | disposition home or self-care (01) ==
PROVIDERS: PCP Nurse Practitioner Primary Care; Visit Provider Surgery
PROC: (CPT 24071; principal; 2023-07-24 07:30)
DX: D17.22 Benign lipomatous neoplasm of skin and subcutaneous tissue of left arm (principal); J30.2 Other seasonal allergic rhinitis; G43.909 Migraine, unspecified, not intractable, without status migrainosus; Z79.51 Long term (current) use of inhaled steroids; Z79.899 Other long term (current) drug therapy; Z88.1 Allergy status to other antibiotic agents; Z98.51 Tubal ligation status
CPT/HCPCS: 24071; 88304; 88305; J1885; J2250; J2405; J3010; J3370

== ENCOUNTER → 2023-07-24 05:58 | Outpatient (BNV) | payer OTHER, SELFPAY | PROVIDERS: PCP Nurse Practitioner Primary Care; Visit Provider Surgery | DX: D17.1 Benign lipomatous neoplasm of skin and subcutaneous tissue of trunk (principal) | CPT/HCPCS: 21931 ==

== ENCOUNTER 2023-08-01 14:13 | Outpatient (AMB) | payer OTHER, SELFPAY ==
--- NOTE | 2023-08-01 14:24 | MHC.OFFVIS ---
Intake Vital Signs 08/01/23 14:32 Height 5 ft 4 in Weight 182 lb 15.739 oz BMI 31.4 BP 120/80 Blood Pressure Location Lt brachial Position Sitting Intake Visit Reasons: s/p excision left axillary lipoma Intake Note: Patient is seen in office for post op assessment post excision of left axillary lipoma. Patient c/o: admits to pain the area, swollen, denies redness or discharge Accompanied by: Self / Same As Patient Allergies amoxicillin [AMOXICILLIN] Allergy (Intermediate, Verified 08/01/23 14:33) HIVES, vomiting, fever Seafood Allergy (Mild, Uncoded 08/01/23 14:33) RASH HPI HPI Comments History of Present Illness Details 42-year-old female patient presenting with a soft tissue mass located in the left axilla. She 1st noted the lump in January 2023 but denies any significant change in size since this time. 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 She denies any redness, discharge, fever, chills or associated symptoms. She was initially evaluated by a walk-in clinic and felt to have lymphadenopathy therefore was placed on oral antibiotics. She did note a slight improvement in the symptoms however the lump remained. She recently underwent mammogram and ultrasound which revealed no suspicious findings in the breast (BI-RADS 2). Ultrasound did revealed a 3.9 x 4.4 x 1.2 cm soft tissue mass suggestive of a lipoma in the left axilla. She underwent excision of a lesion on 07/24/2023 as a short-stay surgery. She tolerated the procedure well and pathology revealed benign lymph node and partial fatty replacement 1.1 cm. An mature lobular adipose tissue without ducts and lobules compatible with lipoma. [facility] Medical History GERD (gastroesophageal reflux disease) Epigastric pain Seasonal allergies Migraine Irregular menses Surgical History (Updated 07/31/23 @ 11:39 by KARLENE Conrad) S/P excision of lipoma (07/24/23) Hx of tubal ligation Family History Mother Ovarian cancer Maternal Grandmother HTN (hypertension) Social History Alcohol intake: never Patient Tobacco Use Status: Never used Tobacco Gender identity: Female Female Reproductive History Menstrual Age of Menarche: 11 Physical Exam Const General: cooperative and no acute distress Nutritional Appearance: well nourished Orientation/consciousness: patient oriented x3 Chest Other: Left axilla with a clean, well-healed incision however a palpable seroma is identified which is tender to palpation. Needle aspiration was performed after assuring informed consent. Approximately 30 mL of clear yellow seroma fluid was aspirated. Patient tolerated this well. Chest/axillae images: 1. Seroma, left axilla Neuro General: patient oriented x3 Extrem General: Yes no clubbing, cyanosis or edema Assessment & Plan Assessment & Plan (1) Lipoma of left axilla: Code(s): D17.22 - Benign lipomatous neoplasm of skin and subcutaneous tissue of left arm Plan 42-year-old female patient status post excision of lipoma of the left axilla. This confirmed lipoma and the pathology as well as a benign lipoma. Patient now has a seroma below the incision which is causing increased discomfort. I recommended needle aspiration. She was agreeable to this and approximately 30 mL of clear yellow seroma fluid was aspirated. She tolerated this very well. She will return in 1 week for follow-up examination. I recommended that she stay out of work for another week due to the seroma. Coding Level of Care Code Global (77967) Diagnoses Lipoma of left axilla D17.22
[2023-08-01 14:32] VITALS: BP 120/80; BMI 31.4
== END 2023-08-01 14:48 | disposition home or self-care (01) ==
PROVIDERS: PCP Nurse Practitioner Primary Care; Visit Provider Surgery
DX: D17.22 Benign lipomatous neoplasm of skin and subcutaneous tissue of left arm (principal)
CPT/HCPCS: 99024

== ENCOUNTER → 2023-08-01 14:13 | Outpatient (BNVA) | payer OTHER, SELFPAY | PROVIDERS: PCP Nurse Practitioner Primary Care; Visit Provider Surgery ==

== ENCOUNTER 2023-08-06 14:50 | Outpatient (AMB) | payer OTHER, SELFPAY ==
--- NOTE | 2023-08-06 15:14 | MHC.OFFVIS ---
Intake Vital Signs 08/06/23 15:21 Height 5 ft 4 in Weight 182 lb 15.739 oz BMI 31.4 BP not taken reason Medical Reason Pulse 62 Intake Visit Reasons: wound check ? infection Intake Note: Patient is seen in office for wound check possible infection. Patient c/o: admits to increase left arm swelling and pain, not on antibiotics. Process Area Supervisor Required: No Accompanied by: Self / Same As Patient Allergies amoxicillin [AMOXICILLIN] Allergy (Intermediate, Verified 08/06/23 15:21) HIVES, vomiting, fever Seafood Allergy (Mild, Uncoded 08/06/23 15:21) RASH Medication List - Last Reconciled 08/07/23 by Mike Noriega MD cholecalciferol (vitamin D3) 50 mcg PO DAILY diclofenac potassium 50 mg PO BID PRN 30 days doxycycline hyclate 100 mg PO BID fluticasone propionate 50 mcg/actuation 1 spray intranasal BID gabapentin 100 mg PO TID [id number] 3,000-9,500- 15,000 unit (Creon) 1 cap PO DAILY loratadine 10 mg PO DAILY PRN methocarbamol 750 mg PO Q8H PRN 30 days oxycodone 5 mg PO Q6H PRN HPI HPI Comments History of Present Illness Details Patient reports increased pain and swelling in the left axilla. She feels the fluid has reaccumulated after 1 day. She has pain extending down her left arm. [facility] Medical History (Updated 08/07/23 @ 13:55 by Mike Noriega MD) GERD (gastroesophageal reflux disease) Epigastric pain Seasonal allergies Migraine Irregular menses Surgical History S/P excision of lipoma (07/24/23) Hx of tubal ligation Family History Mother Ovarian cancer Maternal Grandmother HTN (hypertension) Social History Alcohol intake: never Patient Tobacco Use Status: Never used Tobacco Gender identity: Female Female Reproductive History Menstrual Age of Menarche: 11 Physical Exam Vital Signs: Last Vital Signs Pulse 62 08/06/23 15:21 BMI result Body Mass Index 31.4 Const General: cooperative and no acute distress Nutritional Appearance: well nourished Orientation/consciousness: patient oriented x3 Chest Other: Left axilla with a clean, well-healed incision however a palpable seroma is identified which is tender to palpation. Needle aspiration was performed after assuring informed consent. Approximately 25 mL of clear yellow seroma fluid was aspirated. Patient tolerated this well. Skin Other: Slight redness noted in the axillary incision Neuro General: patient oriented x3 Extrem General: Yes no clubbing, cyanosis or edema Assessment & Plan Assessment & Plan (1) Cellulitis: Code(s): L03.90 - Cellulitis, unspecified Qualifiers: Site of cellulitis: trunk Site of cellulitis of trunk: chest wall Qualified Code(s): L03.313 - Cellulitis of chest wall (2) Lipoma of left axilla: Code(s): D17.22 - Benign lipomatous neoplasm of skin and subcutaneous tissue of left arm Plan Patient has recurrent seroma which was aspirated today. Slight redness is noted in the incision suggestive of an early cellulitis. I will start on antibiotics today. I have asked her to return in 2 days for follow-up examination. Medications: New doxycycline hyclate 100 mg PO BID 14 tabs 0RF L03.90 - Cellulitis, unspecified Coding Level of Care Code Global (35530) Diagnoses Cellulitis of chest wall L03.313 Site of cellulitis: trunk Site of cellulitis of trunk: chest wall Lipoma of left axilla D17.22
[2023-08-06 15:21] VITALS: PULSE 62; BMI 31.4
== END 2023-08-06 15:47 | disposition home or self-care (01) ==
PROVIDERS: PCP Nurse Practitioner Primary Care; Visit Provider Surgery
DX: L03.313 Cellulitis of chest wall (principal); D17.22 Benign lipomatous neoplasm of skin and subcutaneous tissue of left arm
CPT/HCPCS: 99024

== ENCOUNTER → 2023-08-06 14:50 | Outpatient (BNVA) | payer OTHER, SELFPAY | PROVIDERS: PCP Nurse Practitioner Primary Care; Visit Provider Surgery ==

== ENCOUNTER 2023-08-08 12:27 | Outpatient (AMB) | payer OTHER, SELFPAY ==
--- NOTE | 2023-08-08 12:59 | MHC.OFFVIS ---
Intake Vital Signs 08/08/23 13:04 Height 5 ft 4 in Weight 186 lb BMI 31.9 BP 132/71 Blood Pressure Location Rt brachial Position Sitting Pulse 75 Intake Visit Reasons: s/p excision left axillary lipoma, 1 wk follow up Intake Note: This patient presents for a post-op assessment status post excision left axillary lipoma, 1 week follow-up. Patient c/o; pain and tenderness to touch on axilla. Patient states it may need to be drained again. Sr Risk Management Consultant Required: No Accompanied by: Self / Same As Patient Allergies amoxicillin [AMOXICILLIN] Allergy (Intermediate, Verified 08/08/23 13:05) HIVES, vomiting, fever Seafood Allergy (Mild, Uncoded 08/08/23 13:05) RASH HPI s/p excision left axillary lipoma, 1 wk follow up HPI Details She is here for follow-up postop visit. She had undergone excision of a left lipoma from the axilla with Dr. Noriega last 07/24/2023. She had developed a seroma and had this aspirated twice by Dr. Noriega in the office. She is here for follow-up after aspiration 2 days ago. She continues to have pain on the area although this seems to be not as bad as previously. She denies any fever or chills. [facility] Medical History GERD (gastroesophageal reflux disease) Epigastric pain Seasonal allergies Migraine Irregular menses Surgical History S/P excision of lipoma (07/24/23) Hx of tubal ligation Family History Mother Ovarian cancer Maternal Grandmother HTN (hypertension) Social History Alcohol intake: never Patient Tobacco Use Status: Never used Tobacco Gender identity: Female Female Reproductive History Menstrual Age of Menarche: 11 Review of Systems Const Denies chills and Denies fever(s) Card Denies chest pain, Denies dyspnea and Denies dyspnea on exertion Resp Denies cough, Denies dyspnea and Denies dyspnea on exertion GI Denies hematochezia and Denies change in bowel habits Denies hematuria Musc Denies back pain and Denies limited range of motion Neuro Denies focal weakness and Denies convulsions Psych Denies depression and Denies mood swings Physical Exam Vital Signs: Last Vital Signs Pulse 75 08/08/23 13:04 BP 132/71 08/08/23 13:04 BMI result Body Mass Index 31.9 Const General: comfortable and no acute distress Chest Other: Excision site on the left axilla with note of some induration, no significant cellulitis, no fluctuance Resp Effort & Inspection: normal respiratory effort Assessment & Plan Assessment & Plan (1) Lipoma of left axilla: Code(s): D17.22 - Benign lipomatous neoplasm of skin and subcutaneous tissue of left arm Plan: She had developed a seroma on the excision site on the left axilla. This had been aspirated but Dr. Noriega size. I aspirated this again today. I prepped and draped the area and used a gauge 21 needle. I aspirated about 15 cc of clear serous fluid. She tolerated procedure well. There were no immediate complications. I will see her again next week for another wound check. She can continue taking pain medications in the meantime. Coding Level of Care Code Global (97293) Diagnoses Lipoma of left axilla D17.22
[2023-08-08 13:04] VITALS: BP 132/71; PULSE 75; BMI 31.9
== END 2023-08-08 13:22 | disposition home or self-care (01) ==
PROVIDERS: PCP Nurse Practitioner Primary Care; Visit Provider Surgery
DX: D17.22 Benign lipomatous neoplasm of skin and subcutaneous tissue of left arm (principal)
CPT/HCPCS: 99024

== ENCOUNTER → 2023-08-08 12:27 | Outpatient (BNVA) | payer OTHER, SELFPAY | PROVIDERS: PCP Nurse Practitioner Primary Care; Visit Provider Surgery ==

== ENCOUNTER 2023-08-15 10:57 | Outpatient (AMB) | payer OTHER, SELFPAY ==
--- NOTE | 2023-08-15 10:58 | MHC.OFFVIS ---
Intake Vital Signs 08/15/23 11:08 Height 5 ft 4 in Weight 188 lb BMI 32.3 Intake Visit Reasons: s/p excision left axillary lipoma, 1 wk follow up Intake Note: This patient presents for a one week follow-up assessment status post excision left axillary lipoma. Patient c/o; reports limited ROM left arm, reports no oozing or draining. Advanced Practice Professional Required: No Accompanied by: Self / Same As Patient Allergies amoxicillin [AMOXICILLIN] Allergy (Intermediate, Verified 08/15/23 11:09) HIVES, vomiting, fever Seafood Allergy (Mild, Uncoded 08/15/23 11:09) RASH HPI s/p excision left axillary lipoma, 1 wk follow up HPI Details She is here for follow-up for a seroma on a lipoma excision site on her left axilla. I had really aspirated this last week. She says that she is feeling better although she has says that there seems to be a little bit of residual swelling on the area. She says she still has pain on the area that seems to radiate to the inner aspect of her upper arm. [facility] Medical History GERD (gastroesophageal reflux disease) Epigastric pain Seasonal allergies Migraine Irregular menses Surgical History S/P excision of lipoma (07/24/23) Hx of tubal ligation Family History Mother Ovarian cancer Maternal Grandmother HTN (hypertension) Social History Alcohol intake: never Patient Tobacco Use Status: Never used Tobacco Gender identity: Female Female Reproductive History Menstrual Age of Menarche: 11 Review of Systems Const Denies chills and Denies fever(s) Card Denies chest pain, Denies dyspnea and Denies dyspnea on exertion Resp Denies cough, Denies dyspnea and Denies dyspnea on exertion GI Denies hematochezia and Denies change in bowel habits Denies hematuria Musc Denies back pain and Denies limited range of motion Neuro Denies focal weakness and Denies convulsions Psych Denies depression and Denies mood swings Physical Exam Vital Signs: BMI result Body Mass Index 32.3 Const General: comfortable and no acute distress Chest Other: Left axillary excision site with a little bit of residual induration, no cellulitis, no fluctuance, incision is well healed Assessment & Plan Assessment & Plan (1) Lipoma of left axilla: Code(s): D17.22 - Benign lipomatous neoplasm of skin and subcutaneous tissue of left arm Plan: She had a postop seroma which I aspirated last week. There is much less residual induration today. She says she starting to feel better although she still has some pain on the area. She wants to return to work so I am writing her a note for work for next week. 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 She is to continue with NSAIDs for pain and some compresses to the area. I did instruct her to have another postop visit with Dr. Noriega in 2 weeks. Coding Level of Care Code Global (68675) Diagnoses Lipoma of left axilla D17.22
[2023-08-15 11:08] VITALS: BMI 32.3
== END 2023-08-15 11:19 | disposition home or self-care (01) ==
PROVIDERS: PCP Nurse Practitioner Primary Care; Visit Provider Surgery
DX: D17.22 Benign lipomatous neoplasm of skin and subcutaneous tissue of left arm (principal)
CPT/HCPCS: 99024

== ENCOUNTER → 2023-08-15 10:57 | Outpatient (BNVA) | payer OTHER, SELFPAY | PROVIDERS: PCP Nurse Practitioner Primary Care; Visit Provider Surgery ==

== ENCOUNTER 2023-08-29 13:53 | Outpatient (AMB) | payer OTHER, SELFPAY ==
--- NOTE | 2023-08-29 13:55 | MHC.OFFVIS ---
Intake Vital Signs 08/29/23 14:04 Height 5 ft 4 in Weight 186 lb BMI 31.9 BP 123/58 L Blood Pressure Location Lt brachial Position Sitting Pulse 85 Intake Visit Reasons: 2 wks, s/p excision left axillary lipoma Intake Note: Patient is seen in office for 2 weeks follow up visit, post excision of left axillary lipoma. Patient c/o: minimal swelling, pain in the incision specially when sleeping on that side, is unable to fully lift with that arm or bring it up and down fully Front Desk Team Member Required: No Accompanied by: Self / Same As Patient Allergies amoxicillin [AMOXICILLIN] Allergy (Intermediate, Verified 08/29/23 14:03) HIVES, vomiting, fever Seafood Allergy (Mild, Uncoded 08/29/23 14:03) RASH Medication List - Last Reconciled 08/29/23 by Mike Noriega MD cholecalciferol (vitamin D3) 50 mcg PO DAILY diclofenac potassium 50 mg PO BID PRN 30 days doxycycline hyclate 100 mg PO BID fluticasone propionate 50 mcg/actuation 1 spray intranasal BID gabapentin 100 mg PO TID [id number]-[id number]-lbmqzxn 3,000-9,500- 15,000 unit (Creon) 1 cap PO DAILY loratadine 10 mg PO DAILY PRN methocarbamol 750 mg PO Q8H PRN 30 days oxycodone 5 mg PO Q6H PRN HPI HPI Comments History of Present Illness Details Overall patient feels improved with decreased swelling in the axilla. She continues to have pain when extending her left arm outward and upward. She feels swelling extending down the medial aspect of the right arm which is tender to light touch. She denies fever, chills, nausea or vomiting. [facility] Medical History GERD (gastroesophageal reflux disease) Epigastric pain Seasonal allergies Migraine Irregular menses Surgical History S/P excision of lipoma (07/24/23) Hx of tubal ligation Family History Mother Ovarian cancer Maternal Grandmother HTN (hypertension) Social History Alcohol intake: never Patient Tobacco Use Status: Never used Tobacco Gender identity: Female Female Reproductive History Menstrual Age of Menarche: 11 Physical Exam Extrem Other: Left axilla incision is clean, dry and intact. No palpable seroma is appreciated. Mild tenderness to deep palpation. Elbow/forearm/wrist images: 1. Bluish discoloration suggestive of superficial phlebitis without any erythema appreciated. Assessment & Plan Assessment & Plan (1) Lipoma of left axilla: Code(s): D1. - Benign lipomatous neoplasm of skin and subcutaneous tissue of left arm Plan Overall patient is much improved with no further seroma appreciated. There is a bluish discoloration with tenderness suggestive of a superficial thrombophlebitis in the left arm. She has been applying warm compresses and taking NSAIDs. I recommended physical therapy evaluation to improve her range of motion. She should return approximately 2 weeks for follow-up examination. Will continue to keep her on light duty at work for the next month. Orders: Orders PT Evaluation and Treatment Today D1. - Benign lipomatous neoplasm of skin and subcutaneous tissue of left arm Coding Level of Care Code Global (87384) Diagnoses Lipoma of left axilla
[2023-08-29 14:04] VITALS: BP 123/58; PULSE 85; BMI 31.9
== END 2023-08-29 14:12 | disposition home or self-care (01) ==
PROVIDERS: PCP Nurse Practitioner Primary Care; Visit Provider Surgery
DX: D17.22 Benign lipomatous neoplasm of skin and subcutaneous tissue of left arm (principal)
CPT/HCPCS: 99024

== ENCOUNTER → 2023-08-29 13:53 | Outpatient (BNVA) | payer OTHER, SELFPAY | PROVIDERS: PCP Nurse Practitioner Primary Care; Visit Provider Surgery ==

== ENCOUNTER 2023-09-12 13:01 | Outpatient (AMB) | payer OTHER, SELFPAY ==
[2023-09-12 13:20] VITALS: BP 122/63; PULSE 79; BMI 31.8
--- NOTE | 2023-09-12 13:20 | A.OFFVIS_ITS ---
Intake Vital Signs 09/12/23 13:20 Height 5 ft 4 in Weight 185 lb BMI 31.8 BP 122/63 Blood Pressure Location Rt brachial Position Sitting Pulse 79 Intake Visit Reasons: 2 wk follow up, s/p excision left axillary lipoma Intake Note: This patient presents for a two week follow-up assessment for a wound check status post excision left axillary lipoma. Patient reports incision healing well. Denies bleeding, oozing, itch. Hiv/Aids Care Nurse Required: No Accompanied by: Self / Same As Patient Allergies amoxicillin [AMOXICILLIN] Allergy (Intermediate, Verified 09/12/23 13:21) HIVES, vomiting, fever Seafood Allergy (Mild, Uncoded 09/12/23 13:21) RASH Medication List - Last Reconciled 09/13/23 by Mike Noriega MD cholecalciferol (vitamin D3) 50 mcg PO DAILY diclofenac potassium 50 mg PO BID PRN 30 days fluticasone propionate 50 mcg/actuation 1 spray intranasal BID gabapentin 100 mg PO TID [id number] 3,000-9,500- 15,000 unit (Creon) 1 cap PO DAILY loratadine 10 mg PO DAILY PRN methocarbamol 750 mg PO Q8H PRN 30 days HPI HPI Comments History of Present Illness Details Patient returns for follow-up examination of her left arm and axilla. She reports that physical therapy has never set up an appointment. She has been doing her own physical therapy at home doing left arm a size which seems to be helping. Overall her symptoms are much improved with this therapy and she rep orts less pain and no swelling. There is a small area of numbness in the axilla. [facility] Medical History GERD (gastroesophageal reflux disease) Epigastric pain Seasonal allergies Migraine Irregular menses Surgical History S/P excision of lipoma (07/24/23) Hx of tubal ligation Family History Mother Ovarian cancer Maternal Grandmother HTN (hypertension) Social History Alcohol intake: never Patient Tobacco Use Status: Never used Tobacco Gender identity: Female Female Reproductive History Menstrual Age of Menarche: 11 Physical Exam Vital Signs: Last Vital Signs Pulse 79 09/12/23 13:20 BP 122/63 09/12/23 13:20 BMI result Body Mass Index 31.8 Extrem Other: Left axilla incision is clean, dry and intact. No palpable seroma is appreciated. Mild tenderness to deep palpation. Assessment & Plan Assessment & Plan (1) Lipoma of left axilla: Code(s): D17.22 - Benign lipomatous neoplasm of skin and subcutaneous tissue of left arm Plan Overall the patient is much improved with no evidence of a seroma or hematoma in the axilla. Her arm symptoms are much improved as well. I recommended a follow-up appointment in 1 month, sooner p.r.n.. Coding Level of Care Code Global (88653) Diagnoses Lipoma of left axilla D17.22
== END 2023-09-12 13:34 | disposition home or self-care (01) ==
PROVIDERS: PCP Nurse Practitioner Primary Care; Visit Provider Surgery
DX: D17.22 Benign lipomatous neoplasm of skin and subcutaneous tissue of left arm (principal)
CPT/HCPCS: 99024

== ENCOUNTER → 2023-09-12 13:01 | Outpatient (BNVA) | payer OTHER, SELFPAY | PROVIDERS: PCP Nurse Practitioner Primary Care; Visit Provider Surgery | DX: D17.22 Benign lipomatous neoplasm of skin and subcutaneous tissue of left arm (principal) ==

== ENCOUNTER 2023-09-27 10:41 | Outpatient (AMB) | payer OTHER, SELFPAY ==
--- NOTE | 2023-09-27 10:49 | A.OFFVIS_ITS ---
Intake Vital Signs 3 09/27/23 10:55 Height 5 ft 4 in Weight 184 lb BMI 31.6 BP 136/64 Blood Pressure Location Lt brachial Position Sitting Pulse 78 Intake Visit Reasons: Left hand swelling, post axillary lipoma exc Intake Note: Patient is seen in office for wound check, post excision of axillary lipoma. 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 if its related f/u sched: 10/10/23 Allergies amoxicillin [AMOXICILLIN] Allergy (Intermediate, Verified 09/12/23 13:21) HIVES, vomiting, fever Seafood Allergy (Mild, Uncoded 09/12/23 13:21) RASH Medication List - Last Reconciled 09/27/23 by Mike Noriega MD cholecalciferol (vitamin D3) 50 mcg PO DAILY diclofenac potassium 50 mg PO BID PRN 30 days fluticasone propionate 50 mcg/actuation 1 spray intranasal BID gabapentin 100 mg PO TID eativh-oxtlbtcf-mcliyjh 3,000-9,500- 15,000 unit (Creon) 1 cap PO DAILY loratadine 10 mg PO DAILY PRN methocarbamol 750 mg PO Q8H PRN 30 days HPI HPI Comments 2 History of Present Illness0 Details Patient returns today with increased swelling of the left arm after returning to her normal duty at work. She reports increased pain in the arm as a result and is unable to wear her normal scrubs because the became tight on the left arm. She denies doing heavy lifting at work. She has not yet been seen by Physical therapy /Occupational therapy as her swelling had previously improved. [facility] Medical History GERD (gastroesophageal reflux disease) Epigastric pain Seasonal allergies Migraine Irregular menses Surgical History S/P excision of lipoma (07/24/23) Hx of tubal ligation Family History Mother Ovarian cancer Maternal Grandmother HTN (hypertension) Social History Alcohol intake: never Patient Tobacco Use Status: Never used Tobacco Gender identity: Female Female Reproductive History Menstrual Age of Menarche: 11 Review of Systems Const All systems reviewed & are unremarkable except as noted in HPI and below Denies chills, Denies fever(s), Denies headache(s), Denies poor appetite and Denies weakness ENT Denies headache(s) Card Denies chest pain, Denies irregular heart rhythm, Denies palpitations and Denies dyspnea Resp Denies cough, Denies excessive phlegm production and Denies dyspnea GI Denies abdominal pain, Denies bloating, Denies change in bowel habits, Denies constipation, Denies heartburn, Denies diarrhea, Denies nausea and Denies vomiting Denies urinary frequency Musc Denies back pain, Denies muscle weakness, Denies numbness and Reports radiating pain into limb Skin/Breast Reports as per HPI, Denies changing lesions and Denies unusual bruising Neuro Denies headache(s), Denies numbness, Denies paresthesias and Denies weakness Psych Denies anxiety and Denies depression Endo Denies palpitations Jimbo/Lymph Denies lymphadenopathy Physical Exam Vital Signs: Last Vital Signs Pulse 78 09/27/23 10:55 BP 136/64 09/27/23 10:55 BMI result Body Mass Index 31.6 Const General: healthy appearing Nutritional Appearance: well nourished Orientation/consciousness: patient oriented x3 Resp Effort & Inspection: normal respiratory effort Neuro General: patient oriented x3 Extrem Other: 1+ edema in the left upper extremity involving arm and hand, no erythema noted. Normal range of motion. Shoulder/upper arm images: 2 1. lymphedema left arm Assessment & Plan Assessment & Plan (1) Lipoma of left axilla: Code(s): D17.22 - Benign lipomatous neoplasm of skin and subcutaneous tissue of left arm (2) Lymphedema of left arm: Code(s): I89.0 - Lymphedema, not elsewhere classified Plan 42-year-old female patient status post excision of a lipoma of the left axilla now presenting with recurrent lymphedema of the left arm. On examination there is indeed swelling of the left arm increased from the prior examination. I recommended she avoid heavy lifting and straining at work. We will again consult Physical /Occupational therapy for management of lymphedema. She will return in 2 weeks for follow-up examination. Coding Level of Care Code Global (66386) Diagnoses Lipoma of left axilla D17.22 Lymphedema of left arm I89.0
[2023-09-27 10:55] VITALS: BP 136/64; PULSE 78; BMI 31.6
== END 2023-09-27 11:01 | disposition home or self-care (01) ==
PROVIDERS: PCP Nurse Practitioner Primary Care; Visit Provider Surgery
DX: D17.22 Benign lipomatous neoplasm of skin and subcutaneous tissue of left arm (principal); I89.0 Lymphedema, not elsewhere classified
CPT/HCPCS: 99024

== ENCOUNTER → 2023-09-27 10:41 | Outpatient (BNVA) | payer OTHER, SELFPAY | PROVIDERS: PCP Nurse Practitioner Primary Care; Visit Provider Surgery ==

== ENCOUNTER 2023-10-10 15:36 | Outpatient (AMB) | payer OTHER, SELFPAY ==
--- NOTE | 2023-10-10 15:52 | MHC.OFFVIS ---
Intake Vital Signs 10/10/23 15:53 Height 5 ft 4 in Weight 187 lb 8 oz BMI 32.2 BP 137/85 Blood Pressure Location Lt brachial Position Sitting Pulse 77 Intake Visit Reasons: 1m f/u excision left axillary lipoma Intake Note: Patient is seen in office for one month follow up visit, post excision of left axillary lipoma. 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 She started with physical therapy and notes some moderate improvement. She is unable to return to full duty due to the ongoing left arm symptoms. She continues with physical therapy. COUNTS INCLUDE 234 BEDS AT THE [facility] Medical History GERD (gastroesophageal reflux disease) Epigastric pain Seasonal allergies Migraine Irregular menses Surgical History S/P excision of lipoma (07/24/23) Hx of tubal ligation Family History Mother Ovarian cancer Maternal Grandmother HTN (hypertension) Social History Alcohol intake: never Patient Tobacco Use Status: Never used Tobacco Gender identity: Female Female Reproductive History Menstrual Age of Menarche: 11 Review of Systems Const All systems reviewed & are unremarkable except as noted in HPI and below Physical Exam Vital Signs: Last Vital Signs Pulse 77 10/10/23 15:53 BP 137/85 10/10/23 15:53 BMI result Body Mass Index 32.2 Const General: healthy appearing Nutritional Appearance: well nourished Orientation/consciousness: patient oriented x3 Resp Effort & Inspection: normal respiratory effort Neuro General: patient oriented x3 Extrem Other: 1+ edema in the left upper extremity involving arm and hand, no erythema noted. Normal range of motion. Assessment & Plan Assessment & Plan (1) Lipoma of left axilla: Code(s): D17.22 - Benign lipomatous neoplasm of skin and subcutaneous tissue of left arm (2) Lymphedema of left arm: Code(s): I89.0 - Lymphedema, not elsewhere classified Plan 42-year-old female patient status post excision of a lipoma of the left axilla now presenting with recurrent lymphedema of the left arm. On examination there is indeed swelling of the left arm increased from the prior examination. I recommended she continue to avoid heavy lifting and straining at work. She will continue with physical/occupational therapy follow-up in 2-3 weeks. Coding Level of Care Code Global (74954) Diagnoses Lipoma of left axilla D17.22 Lymphedema of left arm I89.0
[2023-10-10 15:53] VITALS: BP 137/85; PULSE 77; BMI 32.2
== END 2023-10-10 16:04 | disposition home or self-care (01) ==
PROVIDERS: PCP Nurse Practitioner Primary Care; Visit Provider Surgery
DX: D17.22 Benign lipomatous neoplasm of skin and subcutaneous tissue of left arm (principal); I89.0 Lymphedema, not elsewhere classified
CPT/HCPCS: 99024

== ENCOUNTER → 2023-10-10 15:36 | Outpatient (BNVA) | payer OTHER, SELFPAY | PROVIDERS: PCP Nurse Practitioner Primary Care; Visit Provider Surgery | DX: D17.22 Benign lipomatous neoplasm of skin and subcutaneous tissue of left arm (principal) ==

== ENCOUNTER 2023-10-29 15:30 | Outpatient (AMB) | payer OTHER, SELFPAY ==
--- NOTE | 2023-10-29 15:41 | A.OFFVIS_ITS ---
Intake Vital Signs 10/29/23 15:45 Height 5 ft 4 in Weight 185 lb BMI 31.8 BP 113/59 L Blood Pressure Location Rt brachial Position Sitting Pulse 82 Intake Visit Reasons: 2 wk follow up exc left axillary lipoma Intake Note: This patient presents for a two week follow-up excision left axillary lipoma. Patient c/o; reports no changes or complaints at this time. Meeting Coordinator Required: No Accompanied by: Self / Same As Patient Allergies amoxicillin [AMOXICILLIN] Allergy (Intermediate, Verified 10/29/23 15:46) HIVES, vomiting, fever Seafood Allergy (Mild, Uncoded 10/29/23 15:46) RASH HPI HPI Comments History of Present Illness Details Patient returns for follow-up of her left arm lymphedema. She was seen by the lymphedema occupational therapy department yesterday and underwent treatment. She denies any new symptoms. She does not feel ready to return to work full duty. [facility] Medical History GERD (gastroesophageal reflux disease) Epigastric pain Seasonal allergies Migraine Irregular menses Surgical History S/P excision of lipoma (07/24/23) Hx of tubal ligation Family History Mother Ovarian cancer Maternal Grandmother HTN (hypertension) Social History Alcohol intake: never Patient Tobacco Use Status: Never used Tobacco Gender identity: Female Female Reproductive History Menstrual Age of Menarche: 11 Physical Exam Vital Signs: Last Vital Signs Pulse 82 10/29/23 15:45 BP 113/59 L 10/29/23 15:45 BMI result Body Mass Index 31.8 Const General: healthy appearing Nutritional Appearance: well nourished Orientation/consciousness: patient oriented x3 Resp Effort & Inspection: normal respiratory effort Neuro General: patient oriented x3 Extrem Other: 1+ edema in the left upper extremity involving arm and hand, no erythema noted. Normal range of motion. Assessment & Plan Assessment & Plan (1) Lipoma of left axilla: Code(s): D17.22 - Benign lipomatous neoplasm of skin and subcutaneous tissue of left arm (2) Lymphedema of left arm: Code(s): I89.0 - Lymphedema, not elsewhere classified Plan 42-year-old female patient status post excision of a lipoma of the left axilla now presenting with recurrent lymphedema of the left arm. On examination there is indeed swelling of the left arm increased from the prior examination. I recommended she continue to avoid heavy lifting and straining at work. She will continue with physical/occupational therapy follow-up in 2-3 weeks. Coding Level of Care Code Global (12438) Diagnoses Lipoma of left axilla D17.22 Lymphedema of left arm I89.0
[2023-10-29 15:45] VITALS: BP 113/59; PULSE 82; BMI 31.8
== END 2023-10-29 15:58 | disposition home or self-care (01) ==
PROVIDERS: PCP Nurse Practitioner Primary Care; Visit Provider Surgery
DX: D17.22 Benign lipomatous neoplasm of skin and subcutaneous tissue of left arm (principal); I89.0 Lymphedema, not elsewhere classified
CPT/HCPCS: 99213

== ENCOUNTER → 2023-10-29 15:30 | Outpatient (BNVA) | payer OTHER, SELFPAY | PROVIDERS: PCP Nurse Practitioner Primary Care; Visit Provider Surgery ==

== ENCOUNTER 2023-12-03 15:25 | Outpatient (AMB) | payer OTHER, SELFPAY ==
--- NOTE | 2023-12-03 15:27 | MHC.OFFVIS ---
Intake Vital Signs 12/03/23 15:37 Height 5 ft 4 in Weight 186 lb BMI 31.9 BP 117/62 Blood Pressure Location Lt brachial Position Sitting Intake Visit Reasons: 1 mth follow up exc left axillary lipoma Intake Note: Patient is seen in office for one month follow up visit, post excision of left axillary lipoma. 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 She subsequently developed lymphedema in the left arm and is currently being evaluated and treated by the occupational therapy department. She does note some improvement with therapy. She has been measured for a sleeve but is waiting for the sleeve to arrive. She is frustrated with the continued edema associated with the surgery. She will need continued restricted activity at work with no heavy lifting. [facility] Medical History GERD (gastroesophageal reflux disease) Epigastric pain Seasonal allergies Migraine Irregular menses Surgical History S/P excision of lipoma (07/24/23) Hx of tubal ligation Family History Mother Ovarian cancer Maternal Grandmother HTN (hypertension) Social History Alcohol intake: never Patient Tobacco Use Status: Never used Tobacco Gender identity: Female Female Reproductive History Menstrual Age of Menarche: 11 Physical Exam Vital Signs: Last Vital Signs BP 117/62 12/03/23 15:37 BMI result Body Mass Index 31.9 Const General: healthy appearing Nutritional Appearance: well nourished Orientation/consciousness: patient oriented x3 Resp Effort & Inspection: normal respiratory effort Neuro General: patient oriented x3 Extrem Other: <1+ edema in the left upper extremity involving arm and hand, no erythema noted. Normal range of motion. Assessment & Plan Assessment & Plan (1) Lipoma of left axilla: Code(s): D17.22 - Benign lipomatous neoplasm of skin and subcutaneous tissue of left arm (2) Lymphedema of left arm: Code(s): I89.0 - Lymphedema, not elsewhere classified Plan 42-year-old female patient status post excision of a lipoma of the left axilla now presenting with recurrent lymphedema of the left arm. She is awaiting the left arm sleeve. She does have some improvement with the therapy but still requires a longer period of restricted lifting. She will return in 1 month for follow-up examination. Coding Level of Care Code Global (03711) Diagnoses Lipoma of left axilla D17.22 Lymphedema of left arm I89.0
[2023-12-03 15:37] VITALS: BP 117/62; BMI 31.9
== END 2023-12-03 15:48 | disposition home or self-care (01) ==
PROVIDERS: PCP Nurse Practitioner Primary Care; Visit Provider Surgery
DX: I89.0 Lymphedema, not elsewhere classified (principal); D17.22 Benign lipomatous neoplasm of skin and subcutaneous tissue of left arm
CPT/HCPCS: 99213

== ENCOUNTER → 2023-12-03 15:25 | Outpatient (BNVA) | payer OTHER, SELFPAY | PROVIDERS: PCP Nurse Practitioner Primary Care; Visit Provider Surgery ==

== ENCOUNTER 2023-12-25 14:10 | Outpatient (AMB) | payer OTHER, SELFPAY ==
[2023-12-25 14:22] VITALS: BP 104/66; BMI 32.1
--- NOTE | 2023-12-25 14:22 | MHC.OFFVIS ---
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 Doing well with no concerns. She tries to eat healthy and stays active with exercise. No menses since January,. She does not report any significant hot flashes. Currently is sexually active w/. She denies vaginal itching and irritation. STI screening offered; she declines. Denies family history breast or colon cancer. FH of ovarian cancer. Last pap smear 2021, negative. Mammogram: UTD, s/p left axilla lump removed, has postop lymphadenema. [facility] Medical History GERD (gastroesophageal reflux disease) Epigastric pain Seasonal allergies Migraine Irregular menses Surgical History S/P excision of lipoma (07/24/23) Hx of tubal ligation Family History Mother Ovarian cancer Maternal Grandmother HTN (hypertension) Social History Alcohol intake: never Patient Tobacco Use Status: Never used Tobacco Gender identity: Female Female Reproductive History Menstrual Age of Menarche: 11 control method: permanent sterilization Permanent Sterilization: BTL Total pregnancies: 3 Full term: 3 Number of Living Children: 3 Date of last pap smear: 04/03/22 (neg pap and hpv) Date of Mammogram: 05/24/23 (Birad 2) Review of Systems Const All systems reviewed & are unremarkable except as noted in HPI and below Reports as per HPI Eyes Reports no additional complaints ENT Reports no additional complaints Card Reports no additional complaints Resp Reports no additional complaints GI Reports as per HPI and Reports no additional complaints Reports as per HPI Musc Reports no additional complaints Skin/Breast Reports as per HPI Neuro Reports no additional complaints Psych Reports no additional complaints Endo Reports no additional complaints Jimbo/Lymph Reports no additional complaints Aller/Immun Reports no additional complaints Physical Exam Vital Signs: Last Vital Signs BP 104/66 12/25/23 14:22 BMI result Body Mass Index 32.1 Const General: cooperative, healthy appearing, no acute distress, well developed and alert Orientation/consciousness: patient oriented x3 HEENT Head: Yes normal to inspection Eyes General: appearance normal, both eyes and all related structures Neck Neck: Yes normal visual inspection Thyroid: Thyroid normal Chest Other: Left axillary scar well healed Chest palpation & inspection: normal inspection of the chest and other (no puckering, dimpling, peau de orange, retraction, discharge, masses) Breast/axilla inspection: normal inspection of the breasts Breast/axilla palpation: normal palpation of the breasts Resp Effort & Inspection: normal respiratory effort GI Inspection: Yes normal to inspection Palpation (GI): Soft to palpation Rectal Exam - Female: deferred General: Yes bladder normal to palpation External Female Exam: normal external appearance and normal appearance of the urethra Speculum Exam - Vagina: normal appearance of the vagina, normal palpation and normal vaginal discharge Speculum Exam - Cervix: normal appearance of the cervix and normal palpation Bimanual exam- vagina & uterus: normal bimanual exam, normal palpation, uterine size normal, bladder normal to palpation, normal palpation and non-tender Bimanual Exam- Adnexa, other: no masses Skin General skin exam: no rashes or lesions noted Rashes: no rashes Neuro General: patient oriented x3 Cognition (Neuro): normal cognition Extrem General: Yes normal to inspection Psych Attitude: cooperative Thought process: Normal thought process present Assessment & Plan Assessment & Plan (1) Encounter for well woman exam with routine gynecological exam: Code(s): Z01.419 - Encounter for gynecological examination (general) (routine) without abnormal findings Plan Discussed: Current recommendations for pap smears per ASCCP guidelines. Breast awareness and periodic breast exams. Maintain a healthy lifestyle including a well balanced diet and routine exercise. Mammogram yearly. Monitor menses if no menses in over 12 months we will consider menopausal. Advised to notify the office if any menstrual concerns. Colonoscopy >45, or at risk sooner. Patient verbalizes understanding and agrees to the plan of care. She was given opportunity to ask questions and all questions were answered to the best of my ability. RTO in one year for annual earth science laboratory technician examination. This note is constructed using voice recognition software. While every effort has been made to ensure accuracy, deck steward errors may have been included. Orders: Orders MM tomosynthesis screening BI Today Z12.31 - Encounter for screening mammogram for malignant neoplasm of breast Coding Level of Care Code Est Pt Prev Care 40-64y(27598) Diagnoses Encounter for well woman exam with routine gynecological exam Z01.419
== END 2023-12-25 14:54 | disposition home or self-care (01) ==
LOC: HO.HWS 14:10
PROVIDERS: PCP Nurse Practitioner Primary Care; Visit Provider Advanced Practice Midwife
DX: Z01.419 Encounter for gynecological examination (general) (routine) without abnormal findings (principal)
CPT/HCPCS: 99396

== ENCOUNTER → 2023-12-25 14:10 | Outpatient (BNVA) | payer OTHER, SELFPAY | PROVIDERS: PCP Nurse Practitioner Primary Care; Visit Provider Advanced Practice Midwife ==

== ENCOUNTER 2023-12-26 15:04 | Outpatient (AMB) | payer OTHER, SELFPAY ==
--- NOTE | 2023-12-26 15:09 | MHC.OFFVIS ---
Intake Vital Signs 12/26/23 15:16 Height 5 ft 4 in Weight 188 lb BMI 32.3 BP 126/68 Blood Pressure Location Lt brachial Position Sitting Pulse 77 Intake Visit Reasons: 3 wk follow up exc left axillary lipoma Intake Note: Patient is seen in office for 3 weeks follow up visit, post excision of left axillary lipoma. 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 Reports pain in the arm and axilla as well as areas of numbness in the axilla. She is being measured for a new sleeve of the left hand. 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 [facility] Medical History GERD (gastroesophageal reflux disease) Epigastric pain Seasonal allergies Migraine Irregular menses Surgical History S/P excision of lipoma (07/24/23) Hx of tubal ligation Family History Mother Ovarian cancer Maternal Grandmother HTN (hypertension) Social History Alcohol intake: never Patient Tobacco Use Status: Never used Tobacco Gender identity: Female Female Reproductive History Menstrual Age of Menarche: 11 Review of Systems Const All systems reviewed & are unremarkable except as noted in HPI and below Physical Exam Vital Signs: Last Vital Signs Pulse 77 12/26/23 15:16 BP 126/68 12/26/23 15:16 BMI result Body Mass Index 32.3 Const General: healthy appearing Chest Other: Well-healed incision in the left axilla, tender to palpation, no definite seroma palpable Skin Other: Warm, dry, no rash Assessment & Plan Assessment & Plan (1) Lymphedema of left arm: Comment: NO BP's LEFT side Code(s): I89.0 - Lymphedema, not elsewhere classified Plan Continue with OT, sleeve. Will check ultrasound of left axilla to evaluate for possible seroma/hematoma. Continue light duty and follow-up in 1 month. Orders: Orders US breast LT limited Today I89.0 - Lymphedema, not elsewhere classified Coding Level of Care Code Global (39478) Diagnoses Lymphedema of left arm I89.0
[2023-12-26 15:16] VITALS: BP 126/68; PULSE 77; BMI 32.3
== END 2023-12-26 15:30 | disposition home or self-care (01) ==
PROVIDERS: PCP Nurse Practitioner Primary Care; Visit Provider Surgery
DX: I89.0 Lymphedema, not elsewhere classified (principal)
CPT/HCPCS: 99213

== ENCOUNTER → 2023-12-26 15:04 | Outpatient (BNVA) | payer OTHER, SELFPAY | PROVIDERS: PCP Nurse Practitioner Primary Care; Visit Provider Surgery ==

== ENCOUNTER 2023-12-31 07:49 | Outpatient (REF) | payer OTHER, SELFPAY ==
--- NOTE | ~2023-12-31 | US_ITS ---
EXAMINATION: US DIAGNOSTIC ULTRASOUND BREAST, LEFT CLINICAL INFORMATION: Left axillary surgery for removal of lipoma. Now patient complaining of left arm lymphedema, pain and swelling in axillary region. Evaluate for seroma/hematoma. COMPARISON: Prior imaging performed at [facility]. TECHNIQUE: Ultrasound of the left axilla is performed with real-time chapman scale imaging and color Doppler. FINDINGS: Within the left axilla, just deep to the scar, within the subcutaneous fat, there is a focal anechoic oval fluid collection measuring 1.4 x 1.1 x 1.2 cm, with good through transmission, and no internal echoes, an imperceptible wall. This is consistent with a simple seroma. No abutting or internal vascular flow. No additional abnormality. Results are provided to the patient at time of visit by the technologist. US/US breast LT limited mamm only IMPRESSION: 1.4 cm anechoic seroma in the left axilla, just deep to the resection scar. Findings are benign. ASSESSMENT: BI-RADS 2 - Benign Findings RECOMMENDATION: 1. Patient should be managed based on the clinical impression. 2. Otherwise, routine annual screening mammography.
== END 2023-12-31 07:50 | disposition home or self-care (01) ==
LOC: HO.MAMMO 07:49
PROVIDERS: PCP Nurse Practitioner Primary Care; Visit Provider Surgery
DX: I89.0 Lymphedema, not elsewhere classified (principal)
CPT/HCPCS: 76642

== ENCOUNTER → 2023-12-31 08:30 | Outpatient (BNV) | payer OTHER, SELFPAY | PROVIDERS: PCP Nurse Practitioner Primary Care; Visit Provider Radiology Diagnostic Radiology | DX: D17.22 Benign lipomatous neoplasm of skin and subcutaneous tissue of left arm (principal) | CPT/HCPCS: 76882 ==

== ENCOUNTER 2024-01-08 07:34 | Outpatient (REF) | payer OTHER, SELFPAY ==
--- NOTE | ~2024-01-08 | US_ITS ---
PROCEDURE: ULTRASOUND-GUIDED LEFT BREAST CYST ASPIRATION CLINICAL INFORMATION: Left axillary seroma. COMPARISON: 12/31/2023. TECHNIQUE: Ultrasound-guided left axillary seroma drainage. INFORMED CONSENT: After the details of the procedure, as well as the risks (including, but not limited to, bleeding, hematoma formation and infection), benefits and alternatives to the procedure were explained to the patient in detail and all of her questions were answered, written informed consent was obtained. A timeout was performed. Prior to the procedure, sonography revealed a left axillary fluid collection which was anechoic, rounded, measuring 1.4 x 1.1 x 1.2 cm with good through transmission. The lesion intended for biopsy was targeted and the skin of the left axilla was then prepped and draped in the usual sterile fashion. PROCEDURE: Using sonographic guidance, sterile technique, and 1% lidocaine without epinephrine for local anesthesia, aspiration was performed with a 18-gauge spinal needle. Approximately 8 mL of clear yellow fluid was aspirated from the seroma. The cyst did aspirate to completion. A small amount of granulation tissue remains. The cyst contents were discarded, as no purulent or bloody material was identified. The patient tolerated the procedure well and, after assuring adequate hemostasis, was discharged in good condition after reviewing post aspiration breast care instructions. US/US breast cyst asp LT IMPRESSION: 1. Uncomplicated sonographically-guided aspiration of the left axillary seroma, yielding 8 mL of yellow-tinged clear fluid. No immediate complication.
[2024-01-08] MEDS: Lidocaine HCl 1 % 20 ML VIAL 5 ML SUBCUT (09:06)
[2024-01-08] MEDS: Sodium Bicarbonate 8.4% 50 MEQ/50 ML VIAL SUBCUT (09:07)
== END 2024-01-08 07:35 | disposition home or self-care (01) ==
LOC: HO.MAMMO 07:34
PROVIDERS: PCP Nurse Practitioner Primary Care; Visit Provider Surgery
DX: I89.0 Lymphedema, not elsewhere classified (principal)
CPT/HCPCS: 19000

== ENCOUNTER → 2024-01-08 08:00 | Outpatient (BNV) | payer OTHER, SELFPAY | PROVIDERS: PCP Nurse Practitioner Primary Care; Visit Provider Radiology Diagnostic Radiology | DX: N63.32 Unspecified lump in axillary tail of the left breast (principal) | CPT/HCPCS: 19000 ==

== ENCOUNTER 2024-01-09 14:00 | Outpatient (RCR) | payer OTHER, SELFPAY ==
--- NOTE | 2023-10-17 09:59 | MHC.OT.EP ---
[address] [phone] Occupational Therapy Plan of Care Patient Name: Olman Underwood Date of Evaluation: 10/16/23 Diagnosis: Left upper extremity lymphedema s/p axillary lipompa excision Pain Location: 2-7 ache Pain Score: 3 Pain Scale Used: Numeric (0 - 10) Aggravating Factors: Increased with increase in arm edema with use Alleviating Factors: Resting and avoiding use Assessment: Pt is a 42 yo female 3 months s/p left axillary lipoma excision with moderate left upper quadrant lymphedema. Pt presents with non pitting edema, scar hypersensitivity and impairment in left shoulder ROM. She reports a 29 % limitation with daily activities due to axillary pain with UE use Pt will benefit for OT to improve Lymphedema , left upper extremity function and prevent worsening of this condition Frequency and Duration: The patient will be seen 4x wk x 4 wks Short Term Goals: Pt will understand lymphedema precautions to decrease the risk of infection andPt exacerbation of the lymphedema. Patient develop a tolerance for wearing multi-layer, short-stretch bandages between treatment sessions to facilitate limb decongestion. Patient will experience a decrease in edema which will improve tissue health and decrease the risk of infection. Patient will perform HEP with minimal assistance to help improve lymphatic flow and venous return. Patient will perform a self-MLD protocol with minimal assistance to help reduce swelling and thus improve ROM and mobility. Patient will increase shoulder flexion to 130 deg Hot Man Goals: Patient will experience increased range of motion and mobility to enable improved ease with bathing and homemaking tasks Patient will be independent with donning and doffing of compression garments which will enable regular daily garment wear and prevent the re-accumulation of edema fluid. Treatment will achieve maximum lymphedema reduction to enable functional improvements such as fitting into standard-size clothing and return to a prior level of function with left dominant upper extremity. Patient will be independent with HEP and lymphedema management to help prevent edema relapse and reduce risk of infection. Treatment Plan: Electronically Signed By: Brynn Alcazar OT CHT CLT Please Sign and return to therapist. Thank you once again for your referral.
== END 2024-03-31 14:55 | disposition home or self-care (01) ==
LOC: HO.OT 14:00
PROVIDERS: PCP Nurse Practitioner Primary Care; Visit Provider Surgery
DX: D17.22 Benign lipomatous neoplasm of skin and subcutaneous tissue of left arm (principal)
CPT/HCPCS: 97110; 97140; 97166; 97535

== ENCOUNTER → 2024-01-14 12:41 | Outpatient (BNVA) | payer OTHER, SELFPAY | PROVIDERS: PCP Nurse Practitioner Primary Care; Visit Provider Surgery ==

== ENCOUNTER 2024-01-14 15:22 | Outpatient (AMB) | payer OTHER, SELFPAY ==
[2024-01-14 15:30] VITALS: BP 122/82; PULSE 76; RESP 16; BMI 32.6
--- NOTE | 2024-01-14 15:30 | MHC.OFFVIS ---
Intake Vital Signs 01/14/24 15:30 Height 5 ft 4 in Weight 190 lb BMI 32.6 BP 122/82 Blood Pressure Location Rt brachial Position Sitting Respiration 16 Pulse 76 Intake Visit Reasons: Lymphedema of LT arm, US cyst asp results Intake Note: Pt states, I had an US and they drained something. c/o little discomfort Band Saw Runner Required: No Allergies amoxicillin [AMOXICILLIN] Allergy (Intermediate, Verified 01/14/24 15:32) HIVES, vomiting, fever Seafood Allergy (Mild, Uncoded 01/14/24 15:32) RASH Medication List - Last Reconciled 01/14/24 by Dennis Rasmussen, RN cholecalciferol (vitamin D3) 50 mcg PO DAILY diclofenac potassium 50 mg PO BID PRN 30 days fluticasone propionate 50 mcg/actuation 1 spray intranasal BID ibuprofen 800 mg PO Q8H loratadine 10 mg PO DAILY PRN methocarbamol 750 mg PO Q8H PRN 30 days HPI HPI Comments History of Present Illness Details Patient returns following ultrasound-guided aspiration of a small seroma in the left axilla. She reports some pain associated with the procedure. She has her new left arm sleeve in place. She notes that swelling does improve when this is worn however, the sleeve does become uncomfortable when worn for prolonged time. She is requesting to return to full activity at work. [facility] Medical History GERD (gastroesophageal reflux disease) Epigastric pain Seasonal allergies Migraine Irregular menses Surgical History S/P excision of lipoma (07/24/23) Hx of tubal ligation Family History Mother Ovarian cancer Maternal Grandmother HTN (hypertension) Social History Alcohol intake: never Patient Tobacco Use Status: Never used Tobacco Gender identity: Female Female Reproductive History Menstrual Age of Menarche: 11 Physical Exam Vital Signs: Last Vital Signs Pulse 76 01/14/24 15:30 Resp 16 01/14/24 15:30 BP 122/82 01/14/24 15:30 BMI result Body Mass Index 32.6 Const General: healthy appearing Chest Other: Well-healed incision in the left axilla, tender to palpation, no erythema or palpable mass. Skin Other: Warm, dry, no rash Extrem Other: Sleeve in place with exposed fingertips. No erythema or edema at fingertips. Assessment & Plan Assessment & Plan (1) Lymphedema of left arm: Comment: NO BP's LEFT side Code(s): I89.0 - Lymphedema, not elsewhere classified (2) Lipoma of left axilla: Code(s): D17.22 - Benign lipomatous neoplasm of skin and subcutaneous tissue of left arm Plan Patient returns following aspiration of the benign seroma left axilla. She tolerated the procedure well but did have some soreness following the procedure. Her wounds are clean with no evidence of recurrent seroma. Patient will continue to wear the sleeve as needed. She may return to full activity and should return as needed. Coding Level of Care Code Global (27088) Diagnoses Lymphedema of left arm I89.0 Lipoma of left axilla D17.22
== END 2024-01-14 15:44 | disposition home or self-care (01) ==
PROVIDERS: PCP Nurse Practitioner Primary Care; Visit Provider Surgery
DX: I89.0 Lymphedema, not elsewhere classified (principal); D17.22 Benign lipomatous neoplasm of skin and subcutaneous tissue of left arm
CPT/HCPCS: 99212

== ENCOUNTER 2024-05-25 15:15 | Outpatient (REF) | payer OTHER, SELFPAY ==
--- NOTE | ~2024-05-25 | MM_ITS ---
EXAMINATION: MM SCREENING DIGITAL BREAST TOMOSYNTHESIS, BILATERAL CLINICAL INFORMATION: Screening. Asymptomatic. COMPARISON: Mammography: This study is compared with prior exams dating back to 2021. TECHNIQUE: Digital breast tomosynthesis is performed in both the craniocaudal and mediolateral oblique views along with computer-aided detection (CAD). Synthesized 2D images are generated from the tomosynthesis. FINDINGS: There are scattered areas of fibroglandular density (ACR BI-RADS breast composition Category b). There is a prominent left axillary node included on the left MLO view. Further evaluation of the left axilla is advised with ultrasound. There are no significant masses, abnormal calcifications, or other abnormalities within of the breast or right axilla. MM/MM tomosynthesis screening BI IMPRESSION: Prominent left axillary lymph node warrants additional imaging with targeted sonography. No mammographic signs of cancer within the tissue of either breast. No right axillary adenopathy. ASSESSMENT: BI-RADS BI-RADS 0 - Incomplete: Needs additional Imaging. RECOMMENDATION: Sonography of the left axilla is advised. Radiology department staff will contact the patient for additional imaging. Additional Imaging required This examination should not preclude the clinical evaluation of a suspicious palpable abnormality. This patient's information was entered into a reminder system with a target due date for their next mammogram.
== END 2024-05-25 15:16 | disposition home or self-care (01) ==
LOC: HO.MAMMO 15:15
PROVIDERS: PCP Nurse Practitioner Primary Care; Visit Provider Advanced Practice Midwife
DX: Z12.31 Encounter for screening mammogram for malignant neoplasm of breast (principal)
CPT/HCPCS: 77063; 77067

== ENCOUNTER → 2024-05-25 15:45 | Outpatient (BNV) | payer OTHER, SELFPAY | PROVIDERS: PCP Nurse Practitioner Primary Care; Visit Provider Radiology Diagnostic Radiology | DX: Z12.31 Encounter for screening mammogram for malignant neoplasm of breast (principal) | CPT/HCPCS: 77063; 77067 ==

== ENCOUNTER 2024-06-11 12:44 | Outpatient (REF) | payer OTHER, SELFPAY ==
--- NOTE | ~2024-06-11 | US_ITS ---
EXAMINATION: US DIAGNOSTIC ULTRASOUND BREAST, LEFT CLINICAL INFORMATION: Prominent lymph node seen on screening mammography 05/25/2021 left axilla. Patient had a prior lipoma removal from left mid axilla. COMPARISON: 05/25/2024 mammography. TECHNIQUE: Ultrasound of the left axilla is performed with real-time chapman scale imaging and color Doppler. FINDINGS: There is no focal suspicious finding. There is no solid mass, architectural abnormality, abnormal shadowing, or cystic abnormality. The lymph node in question is identified and has a normal appearance on ultrasound was prominent fatty hilum, normal thickness cortex, and normal danny morphology. Finding is benign. Results are provided to the patient at time of visit by the technologist. US/US breast LT limited mamm only IMPRESSION: Benign lymph node left axilla. No findings suspicious for malignancy. ASSESSMENT: BI-RADS BI-RADS 2 RECOMMENDATION: Routine annual mammography screening. This patient's information was entered into a reminder system with a target due date for their next mammogram. Electronically signed by: Ghassan Hyman MD 06/22/2024 09:59 AM EDT
== END 2024-06-11 12:45 | disposition home or self-care (01) ==
LOC: HO.MAMMO 12:44
PROVIDERS: PCP Nurse Practitioner Primary Care; Visit Provider Nurse Practitioner Primary Care
DX: N63.32 Unspecified lump in axillary tail of the left breast (principal)
CPT/HCPCS: 76642

== ENCOUNTER → 2024-06-11 13:00 | Outpatient (BNV) | payer OTHER, SELFPAY | PROVIDERS: PCP Nurse Practitioner Primary Care; Visit Provider Radiology Diagnostic Radiology | DX: R92.8 Other abnormal and inconclusive findings on diagnostic imaging of breast (principal) | CPT/HCPCS: 76642 ==

== ENCOUNTER 2024-11-09 09:24 | Emergency (ER) | payer OTHER, SELFPAY ==
--- NOTE | ~2024-11-09 | CT_ITS ---
EXAMINATION: CT HEAD WITHOUT CONTRAST CLINICAL INFORMATION: Head injury, severe headache. COMPARISON: None available. TECHNIQUE: Contiguous axial imaging was performed from the skull base to vertex without intravenous administration of contrast. This CT examination was performed using dose optimization techniques as appropriate, variously including the following: *Automated exposure control *Adjustment of mA and/or kV according to patient size (this includes techniques or standardized protocols for targeted exams where dose is matched to indication/reason for exam; i.e. extremities or head) *Use of iterative reconstruction technique FINDINGS: There is no evidence of intracranial hemorrhage or extra-axial fluid collection. There is no mass effect, or edema. No CT evidence of acute territorial infarct. Ventricles, sulci, and cisterns are normal in size and configuration for patient age. No hydrocephalus. No midline shift. No significant white matter abnormalities. Normal sella. Globes and orbital contents image normally. Extracranial soft tissues demonstrate central vertex focal soft tissue swelling. Mild mucosal thickening in the sphenoid sinuses. No air-fluid levels. The remaining paranasal sinuses, mastoid air cells, and tympanic cavities are normally aerated. Right nasal septal deviation with spurring. No suspicious bony abnormalities. No fractures. Degenerative changes in the left greater than right TM joints. CT/CT head/brain wo IV con IMPRESSION: 1. No acute intracranial abnormalities. No fractures. 2. Vertex focal scalp soft tissue swelling. Electronically signed by: Ghassan Hyman MD 11/09/2024 10:35 AM [facility]
--- NOTE | ~2024-11-09 | CT_ITS ---
EXAMINATION: CT CERVICAL SPINE WITHOUT CONTRAST CLINICAL INFORMATION: Neck trauma COMPARISON: None available. TECHNIQUE: 3 mm thin axial and 2 mm thin sagittal and coronal images of cervical spine were obtained without contrast. This CT examination was performed using dose optimization techniques as appropriate, variously including the following: *Automated exposure control *Adjustment of mA and/or kV according to patient size (this includes techniques or standardized protocols for targeted exams where dose is matched to indication/reason for exam; i.e. extremities or head) *Use of iterative reconstruction technique. DLP: 1187 mGy/cm. FINDINGS: There is mild reversal of cervical lordosis. The vertebral heights, alignment and disc heights are normal. There is no visible acute fracture, dislocation or subluxation. The craniovertebral junction and C1-C2 alignment is normal. There is mild subchondral cystic changes along bilateral mandibular condyles. There is mild mucoperiosteal thickening bilateral sphenoid sinuses. The mastoid sinuses are clear. The prevertebral and paravertebral soft tissues are normal. There is minimal bilateral apical scarring and pleural thickening. There is small hypodense nodule left thyroid lobe.. CT/CT cervical spine wo IV con IMPRESSION: Reversal of cervical lordosis likely spasm. No visible acute fracture, dislocation or subluxation seen. Fleischner guidelines were followed. Electronically signed by: Adelso Harvey MD 11/09/2024 10:37 AM [facility]
[2024-11-09 09:55] VITALS: BP 115/79; PULSE 81; RESP 16; TEMP 36.4; O2SAT 97; BMI 31.1
--- NOTE | 2024-11-09 10:00 | ED.FALL ---
HPI - Fall General Chief Complaint: Fall Stated Complaint: fall R side inj Source: patient Mode of arrival: ambulatory Limitations: no limitations History of Present Illness ED Provider: MARGI LARA Narrative: 43 yo female not on thinners was helping his Saturday while ice fishing and she slipped and fell no LOC hit head now has persistent headache and some nausea, R sided neck ttp, notes she feels off and unsteady. No vision changes but states the pain is severe and wont go away. Referred by PCP. No other injuries. MD complaint: fall Onset (ago): day(s) (Saturday) Fall from: standing Fall witnessed: yes, by family Place fall occurred: other (ice) Loss of consciousness: none Prolonged down time: no Symptoms prior to fall: none Context: tripped/slipped Location of injury: head and neck Severity: moderate Quality: dull and throbbing Associated symptoms (after fall): headache Related Data Home Medications ?Medication ?Instructions ?Recorded ?Confirmed fluticasone propionate 50 1 spray intranasal BID 09/02/20 01/14/24 mcg/actuation nasal spray,suspension loratadine 10 mg tablet 10 mg PO DAILY PRN Allergy Symptoms 09/02/20 01/14/24 cholecalciferol (vitamin D3) 50 50 mcg PO DAILY 05/31/22 01/14/24 mcg (2,000 unit) capsule ibuprofen 800 mg tablet 800 mg PO Q8H 12/25/23 01/14/24 Previous Rx's ?Medication ?Instructions ?Recorded diclofenac potassium 50 mg tablet 50 mg PO BID PRN pain 30 days #60 06/20/22 tabs methocarbamol 750 mg tablet 750 mg PO Q8H PRN muscle spasm 30 07/05/22 days #90 tabs cyclobenzaprine 10 mg tablet 10 mg PO TID PRN muscle spasm #20 11/09/24 tabs ondansetron 4 mg disintegrating 4 mg PO Q8H PRN nausea and 11/09/24 tablet vomiting #20 tabs Allergies Allergy/AdvReac Type Severity Reaction Status Date / Time amoxicillin [AMOXICILLIN] Allergy Intermediate HIVES, Verified 11/09/24 09:59 vomiting, fever Seafood Allergy Mild RASH Uncoded 01/14/24 15:32 Review of Systems Review of Systems: Constitutional : No Fever, No Chills, No Fatigue ENT/Mouth : No sore throat, No Rhinorrhea Eyes: No Eye Pain, No Swelling, No Redness Cardiovascular : No Chest Pain, No SOB, No Dyspnea on Exertion Respiratory : No Cough, No Sputum Gastrointestinal : No Nausea, No Vomiting, No Diarrhea, No abdominal Pain Genitourinary : No Dysuria, No Urinary Frequency, No Hematuria, Musculoskeletal : No joint pain, No Myalgias, No Joint Swelling Skin : No Skin Lesions, No rash Neuro : No Weakness, No Numbness, No Dizziness, positive Headache All other systems reviewed and are negative [facility] Past Medical History Attestation statement: The following information was validated with the patient. Source: old records reviewed Medical History GERD (gastroesophageal reflux disease) Epigastric pain Seasonal allergies Migraine Irregular menses Surgical History S/P excision of lipoma (07/24/23) Hx of tubal ligation Family History Family History Mother Ovarian cancer Maternal Grandmother HTN (hypertension) Social History Social History Alcohol intake: never Patient Tobacco Use Status: Never used Tobacco Gender identity: Female Physical Exam Vital Signs: Vital Signs: Last Vital Signs Temp 97.6 F 11/09/24 09:55 Pulse 81 11/09/24 09:55 Resp 16 11/09/24 09:55 BP 115/79 11/09/24 09:55 Pulse Ox 97 11/09/24 09:55 O2 Del Method Room Air 11/09/24 09:55 BMI result Body Mass Index 31.1 Appearance: Alert. Oriented X3. No acute distress. Eyes: Pupils equal, round and reactive to light. ENT: Pharynx normal. atraumatic Neck: Normal inspection. Neck supple. mild R cervical spine R side ttp CVS: Normal heart rate and rhythm. Pulses normal. Respiratory: No respiratory distress. Breath sounds normal. Abdomen: Soft and nontender. Skin: Skin warm and dry. Normal skin color. Normal skin turgor. Extremities: No lower extremity edema. No calf ttp Neuro: Oriented X 3. No motor deficit. No sensory deficit. CN2-12 intact Course Course Course Narrative: 43 yo female with PMH of GERD and IBS s/p fall on ice with headstrike on Saturday no LOC not on thinners but since then severe headaches, neck pain and feels nauseated. She feels she also cannot drive well. She went to PCP who referred her to ED for imaging. She states her symptoms have not gotten better. No numbness, weakness in UE. CT scans ordered this is a RAPID medical screening exam the rest of the history and physical exam is to be done by the main provider. Medical Decision Making Medical Decision Making MDM Narrative: 43 yo female with PMH of migraines, GERD not on thinners here with c/o trip and fall Saturday with neck pain and headstrike no LOC but headaches are severe. At this time suspect concussion but given degree of pain and neck pain will obtain CT scans to rule out trauma. PO pain control. Differential Diagnosis Differential Diagnoses: The differential diagnosis associated with the presentation includes strain, fracture, concussion, headaches Admission/Observation Consideration of admission/observation: Escalation of care including admission/observation considered GCS 15 stable for DC Independent Interpretation I performed an independent interpretation of an: CT Scan (no trauma) Radiology Impression Discussion of test interpretation with radiology: I have reviewed the radiologist's reading. External Record Review External record reviewed: Outpatient record Prescription Management I considered prescription management with: Other Discharge Plan Discharge Clinical Impression: Head injury Qualifiers: Encounter type: initial encounter Qualified Code(s): S09.90XA - Unspecified injury of head, initial encounter Concussion Qualifiers: Encounter type: initial encounter Loss of consciousness presence/duration: without LOC Qualified Code(s): S06.0X0A - Concussion without loss of consciousness, initial encounter Patient Disposition: Home, Self-Care Instructions: Concussion (ED), Head Injury (ED) Additional Instructions: CT scans negative for trauma at this time rest x 1 week no alcohol, screens, strenuous exercise return for worsening symptoms or concerns Prescriptions: New cyclobenzaprine 10 mg tablet 10 mg PO TID PRN (Reason: muscle spasm) Qty: 20 0RF ondansetron 4 mg tablet,disintegrating 4 mg PO Q8H PRN (Reason: nausea and vomiting) Qty: 20 0RF No Action methocarbamol 750 mg tablet 750 mg PO Q8H PRN (Reason: muscle spasm) 30 Days Qty: 90 0RF fluticasone propionate 50 mcg/actuation spray,suspension 1 spray intranasal BID loratadine 10 mg tablet 10 mg PO DAILY PRN (Reason: Allergy Symptoms) cholecalciferol (vitamin D3) 50 mcg (2,000 unit) capsule 50 mcg PO DAILY diclofenac potassium 50 mg tablet 50 mg PO BID PRN (Reason: pain) 30 Days Qty: 60 1RF Rx Instructions: Take it with food. ibuprofen 800 mg tablet 800 mg PO Q8H Stand Alone Forms: Work/School Release Print Language: Cambodian
== END 2024-11-09 10:50 | disposition home or self-care (01) ==
PROVIDERS: Emergency Provider Emergency Medicine; PCP Nurse Practitioner Primary Care
DX: S09.90XA Unspecified injury of head, initial encounter (principal); S06.0X0A Concussion without loss of consciousness, initial encounter; W00.0XXA Fall on same level due to ice and snow, initial encounter; Y93.19 Activity, other involving water and watercraft; Y92.89 Other specified places as the place of occurrence of the external cause; Y99.9 Unspecified external cause status
CPT/HCPCS: 70450; 72125; 99281; 99284

== ENCOUNTER → 2024-11-09 09:58 | Outpatient (BNV) | payer OTHER, SELFPAY | PROVIDERS: Emergency Provider Emergency Medicine; PCP Nurse Practitioner Primary Care; Visit Provider Radiology Diagnostic Radiology | DX: M40.50 Lordosis, unspecified, site unspecified (principal); R22.0 Localized swelling, mass and lump, head; R51.9 Headache, unspecified | CPT/HCPCS: 70450; 72125 ==

== ENCOUNTER 2024-11-25 15:38 | Outpatient (REF) | payer OTHER, SELFPAY ==
--- OUTSIDE RECORDS SUMMARY | 2024-11-25 17:30 | XMS_ITS | Encounter Summary ---
Author Organization [employer] Address [address] [place] [address] Care Team Providers Care Photographic Developer And Printer Name Role Phone Selam Peterson Primary Care Provider [phone] Reason for Visit * Reason Onset Date Comments Call Back Request 11/10/2024 ER Follow-up 11/10/2024 Results 11/10/2024 Encounter Details Date Type Department Care Team ([facility] st Contact Info) Description 11/10/2024 Telephone [facility] MEDICINE [address] [place], [place] [phone] Selam Peterson ANP [address] [place], [place] [phone] Call Back Request (/); ER Follow-up; Results Social History Tobacco Use Types Packs/Day Years Used Date Smoking Tobacco: Never Smokeless Tobacco: Never Alcohol Use Standard Drinks/Week Comments Not Currently 0 (1 standard drink = 0.6 oz pur e alcohol) Depression Answer Date Recorded Patient Health Questionnaire-9 Score 8 08/14/2024 Patient Health Questionnaire-9 Score 8 08/14/2024 Last PHQ-9: Questionnaire Data Not on file 1 Housing Stability Answer Date Recorded What is your housing situation today? I have jacqueline velasquez 07/31/[address] you li ve. Do you have problems with any of the following? None of the above 07/31/2024 Food Insecurity Answer Date Recorded Within the past 12 months, y ou worried that your food would run out before you got money to buy more: Never True 07/31/2024 Within the past 12 months,th e food you bought just didn't last and you didn't have enough money to get more: Never True 01/2024 Transportation Answer Date Recorded In the past 12 months, has l ack of transportation kept you from medical appts, meetings, work or from getting things needed for daily living? No 07/31/2024 Utilities Answer Date Recorded In the past 12 months, has t he electric, gas, oil or water company threatened to shut off services in your home? No 07/31/2024 Depression Answer Date Recorded Patient Health Questionnaire-2 Score 2 08/14/2024 Internet Access Answer Date Recorded Internet Access Q1 Yes 07/31/2024 Internet Access Q2 Not on file 07/31/2024 Comments Unknown Sex and Gender Information Value Date Recorded Sex Assigned at Female 08/27/2022 10:15 AM EDT Legal Sex Female 10:15 AM EDT Gender Identity Female 08/27/2022 10:15 AM EDT Sexual Orientation Straight 08/27/2022 10 :15 AM EDT documented as of this encounter Miscellaneous Notes * Telephone Encounter - Adriana Blanca RN - 11/18/2024 8:44 AM EST Pt has thyroid US scheduled for 11/25/24 at 4pm. Will task to check if results are read after and then call pt to schedule appt. * Telephone Encounter - Adriana Blanca RN - 11/12/2024 10:08 AM EST 2 other inbox messages regarding pt, adding here to combine. Called pt. Pt reports doing better today. She stated she is resting, avoiding screens and exertion. Advised her if her symptoms worsen or she returns to feeling how she did when she went to the ED,that she should go back to the ED. Pt verbalized understanding. Asked if pt also called in about incidental thyroid finding from CT scan in ED, pt stated yes. Advised her that PCP order thyroid ultrasound to better evaluate this finding. Pt stated that the ED doctor told her that this may have been what she has been feeling with her 4 week cough. Advised her that [facility] will call her in 1-2 weeks to schedule thyroid ultrasound. Offered to schedule pt now with PCP to discuss results, pt stated she would like to wait until the results are in from the thyroid ultrasound. Will retask to check in and call pt to schedule. -- Selam Peterson NP Received personal communication from Alecia from dental department regarding this patient-patient was seen at dental and reported concern with an abnormality seen on her imaging at the emergency room. On reviewing the imaging the only finding that may need follow-up is a small hypodense nodule left thyroid lobe. Please inquire with patient if this is the finding she is concerned about. I will order an ultrasound to better evaluate. If she has additional concerns please schedule ED follow-up to review imaging and discuss. thank you. Patient calling to report ED visit on : Date: 11/09/2024 Hospital: [facility] Seen for: CONCUSION Symptomatic No *if yes message should go to Triage Patient advised will forward to team nurse for follow up * Telephone Encounter - Sharon Moseley - 11/10/2024 12:47 PM EST TC from pt requesting call back regarding Results. Type of results: CT Scan Date when done: 11/09 Facility: [facility] documented in this encounter Plan of Treatment Not on file documented as of this encounter Visit Diagnoses Not on filedocumented in this encounter Additional Health Concerns Assessment Noted Time PHQ-9 Depression Total Score: 8 08/14/20 24 3:53 PM EDT documented as of this encounter Care Teams Photographic Developer And Printer Relationship Specialty Start Date End Date Selam Peterson ANP [address] [place] [id number] PCP - General Family Medicine 06/21/22 documented as of this encounter
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
--- OUTSIDE RECORDS SUMMARY | 2024-11-25 17:30 | XMS_ITS | Encounter Summary ---
Author Organization [employer] Address [address] [facility] [address] [place] [address] Care Team Providers Care Artists' Model Name Role Phone Selam Peterson Primary Care Provider [phone] Encounter Details Date Type Department Care Team (Latest Contact Info) Description 11/19/2024 Travel Social History Tobacco Use Types Packs/Day Years [...] AM EDT documented as of this encounter Plan of Treatment Not on file documented as of this encounter Visit Diagnoses Not on filedocumented in this encounter Additional Health Concerns Assessment Noted Time PHQ-9 Depression Total Score: 8 08/14/20 24 3:53 PM EDT documented as of this encounter Care Teams Artists' Model Relationship Specialty Start Date End Date Selam Peterson ANP [address] [place] [id number] PCP - General Family Medicine 06/21/22 documented as of this encounter
--- OUTSIDE RECORDS SUMMARY | 2024-11-25 17:30 | XMS_ITS | Clinical Summary ---
Author Organization [employer] Address [address] [facility] 7t [place] [address] Care Team Providers Care Air Drill Operator Name Role Phone Konrad Stuart Primary Care Provider [phone] Allergies Active Allergy Reactions Criticality Noted Date Comments Clavulanic Acid 09/13/2014 Other reaction(s): Rash Penicillins Hives 10/23/2010 Other reaction(s): GI Intolerance, Rash, unspecified Medications pantoprazole (ProtoNix) 20 MG EC tabletIndicatio ns:Gastroesopha geal reflux disease with esophagitis without hemorrhage TAKE 1 TABLET (20 MG) BY MOUTH BEFORE BREAKFAST DO NOT CRUSH, CHEW, OR SPLIT 90 tablet 11/03/19 25 026 Active pantoprazole (ProtoNix) 20 MG EC tabletIndicatio ns:Gastroesopha geal reflux disease with esophagitis without hemorrhage TAKE 1 TABLET (20 MG) BY MOUTH BEFORE BREAKFAST DO NOT CRUSH, CHEW, OR SPLIT 90 tablet 07/30/20 24 025 Discontinued Active Problems Problem Noted Date Diagnosed Date Gastroesophageal reflux dise ase with esophagitis without hemorrhage 01/24/2024 Assessment & Plan (01/25/2024 12:45 PM EDT): Reviewed dietary modification including low acid foods, small frequent meals, do not lay down within 30 minutes of a meal pantoprazole rx send Medication Indications, side effects and duration of therapy reviewed, pt aware to call clinic for worsening symptoms or failure to resolve If no improvement within 4 weeks consider h plyori test and referral to GI Class 1 obesity 02/19/2023 Irritable bowel syndrome with diarrhea Chronic low back pain 02/19/2022 Tinnitus of left ear 07/04/2021 Duplicated right renal collecting system 019 Vitamin D deficiency 01/20/2019 Allergic rhinitis 03/19/2016 Dysmenorrhea 03/19/2016 Migraine without aura, not refractory 03/19/2016 Encounters Date Type Department Care Team Description 11/19/2024 9:00 AM EST Office Visit [facility] [address] [place] [address] Tarart, Janell, OD Hypermetropia, bilateral (Primary Dx); Pinguecula of both eyes 11/19/2024 Travel 11/12/2024 Orders Only [facility] [address] [place] [address] Konrad Stuart ANP Thyroid nodule incidentally noted on imaging study (Primary Dx) 11/11/[address] [address] Konrad Stuart ANP ER Follow-up 11/10/[address] [address] Konrad Stuart ANP Call Back Request (/); ER Follow-up; Results 11/09/2024 Orders Only [facility] External Provider, [facility] 11/09/2024 Telephone [facility] [address] [place] [address] Pamela Nicholas, RN Nurse Triage (Fall, Headaches) 11/03/2024 Refill [facility] [address] [place] [address] Konrad Stuart ANP Gastroesophageal reflux disease with esophagitis without hemorrhage from Last 3 Months Immunizations Name Administration Dates Next Due Hep B, Adolescent or Pediatric 06/21/2009,2008,12/21/2008 Influenza Injectable Quadriv alant Preservative Free IIV4 MDCK 07/12/2022,07/18/2021,07/20/2020 Influenza injectable quadriv alent IIV4 with preservative 07/22/2019,07/25/2017 Influenza injectable quadriv alent preservative free 07/17/2018 Influenza, seasonal, injecta ble, preservative free 08/14/2024 TD (adult), 2 Lf tetanus tox oid, preservative free, adsorbed 08/26/2006 Tdap 03/17/2015,02/26/2012 Social History Tobacco Use Types Packs/Day Years Used Date Smoking Tobacco: Never Smokeless Tobacco: Never Tobacco Cessation:Counseling Given: Not Answered Alcohol Use Standard Drinks/Week Comments Not Currently [...] Orientation Straight 08/27/2022 10 :15 AM EDT Last Filed Vital Signs Vital Sign Reading Time Taken Comments Blood Pressure 133/77 08/14/2024 2:37 PM EDT Pulse 76 08/14/2024 2:37 PM EDT Temperature 36.6 ??C (97.8 ??F) 08/14/2024 2:37 PM ED T Respiratory Rate 16 08/14/2024 2:37 PM EDT Oxygen Saturation 98% 08/14/2024 2:37 PM EDT Inhaled Oxygen Concentration - - Weight 84 kg (185 lb 3.2 oz) 08/14/2024 2:37 PM EDT Height 162.6 cm (5' 4 ) 08/14/2024 2:37 PM EDT Body Mass Index 31.79 08/14/2024 2:37 PM EDT Plan of Treatment Health Maintenance Due Date Last Done Comments Family Planning (PISQ) 1996 Hepatitis B Vaccines (1 of 3 - 19+ 3-dose series) 2000 06/21/2009, 01/18/2009, 12/21/2008 Pap Smear 2002 DTaP/Tdap/Td Vaccines (3 - Td or Tdap) 03/17/2025 03/17/2015, 02/26/2012, 08/26/2006 SDOH Screening 07/31/2025 07/31/2024 Depression Screening 08/14/2025 08/14/2024, 08/14/20 24 Alcohol/Substance Use Screening 09/17/2025 09/17/2024 COVID-19 Vaccine ( season) 2025 09/08/2021, 11/21/2020, 10/24/2020 Postponed from 06/28/2024 (Patient Refused) Tobacco Screening 11/19/2025 11/19/2024 Mammogram 06/11/2026 06/11/2024, 07/06/2024, 12/31/2023, Additional history exists Cervical Cancer Screening 04/03/2027 HPV/Cotest 04/03/2027 04/03/2022, 04/03/2022 Zoster Vaccines (1 of 2) 2031 RSV Patients and Patients Aged 60 years or older (1 - 1-dose 75+ series) 2056 HIV Screening Completed 04/14/2022, 11/07/2019 Hepatitis C Screening Completed 04/14/2022 Influenza Vaccine Completed 08/14/2024, , 07/18/2021, Additional history exists HIB Vaccines Aged Out No longer eligi ble based on patient's age to complete this topic HPV Vaccines Aged Out No longer eligi ble based on patient's age to complete this topic Hepatitis A Vaccines Aged Out No long er eligible based on patient's age to complete this topic IPV Vaccines Aged Out No longer eligi ble based on patient's age to complete this topic Meningococcal Vaccine Aged Out No trin[place] raiza eligible based on patient's age to complete this topic Pneumococcal Vaccine: Pediatrics (0 to 5 Years) and At-Risk Patients (6 to 49) Years) Aged Out No longer eligible based on patient's age to complete this topic RSV under 20 months Aged Out No longe r eligible based on patient's age to complete this topic Rotavirus Vaccines Aged Out No longer eligible based on patient's age to complete this topic Procedures Procedure Name Priority Date/Time Associated Diagnosis Comments CT CERVICAL SPINE WO CONTRAST Routine 11/09/2024 10:[address] HEAD WO CONTRAST Routine 11/09/2024 9 :58 AM EST BI US BREAST LIMITED LEFT Routine 06/11/2024 1:00 PM EDT ZZZ HISTORICAL HEPATITIS B CORE ANTIBODY Routine 04/14/2022 7:19 AM EDT ZZZ HISTORICAL HPV E6/E7 RFLX EMI 16 18/45 Routine 04/03/2022 3:28 PM EDT from Last 3 Months or Most Recently Relevant to Health Maintenance Results * CT Cervical Spine w/o Contrast (11/09/2024 10:04 AM EST) Anatomical Region Laterality Modality Spine, C-spine Computed Tomogra phy 11/09/2024 10:0 4 AM EST Narrative 11/09/2024 10:40 AM EST ? [facility] ?[address] ?[place] [address] ? CT Scan Report ? Signed ? Patient: Moustapha Underwood,Gricela ?MR#: M ?? [id number] ? : 1980 ?Acct:[id number] ? Age/Sex: 43 / F ?ADM Date: /13/25 ? Loc: HO.ED ? Attending Dr: ? Ordering Physician: Laurie Gunderson DO ?? Date of Service: 11/09/24 ?? Procedure(s): CT cervical spine wo IV con ?? Accession Number(s): [id number] ? cc: Laurie Gunderson DO; KONRAD STUART CREATIVE ENGAGEMENT DIRECTOR ? Report Number: ?? [id number]: Total DLP = ??508.00 mGy-cm ?? EXAMINATION: ?? CT CERVICAL SPINE WITHOUT CONTRAST ? CLINICAL INFORMATION: ?? Neck trauma ? COMPARISON: ?? None available. ? TECHNIQUE: ?? 3 mm thin axial and 2 mm thin sagittal and coronal images of cervical ?? spine were obtained without contrast. ? This CT examination was performed using dose optimization techniques as ?? appropriate, variously including the following: ?? *Automated exposure control ?? *Adjustment of mA and/or kV according to patient size (this includes ?? techniques or standardized protocols for targeted exams where dose is ?? matched to indication/reason for exam; i.e. extremities or head) ?? *Use of iterative reconstruction technique. ?? DLP: 1187 mGy/cm. ? FINDINGS: ?? There is mild reversal of cervical lordosis. The vertebral heights, ?? alignment and disc heights are normal. There is no visible acute ?? fracture, dislocation or subluxation. The craniovertebral junction and ?? C1-C2 alignment is normal. There is mild subchondral cystic changes ?? along bilateral mandibular condyles. There is mild mucoperiosteal ?? thickening bilateral sphenoid sinuses. The mastoid sinuses are clear. ?? The prevertebral and paravertebral soft tissues are normal. There is ?? minimal bilateral apical scarring and pleural ??thickening. There is ?? small hypodense nodule left thyroid lobe.. ? CT/CT cervical spine wo IV con ?? IMPRESSION: ?? Reversal of cervical lordosis likely spasm. No visible acute fracture, ?? dislocation or subluxation seen. ? Fleischner guidelines were followed. ? Electronically signed by: ??Adelso Harvey MD ??11/09/2024 10:37 AM EST RP ? Dictated By: ?Candice,Adelso S MD ? Signed By: ?<Electronically signed by Adelso S Candice, MD in OV> ?11/09/24 1037 ? DD/ 1004 ? TD/TT: 11/09/24 1023 ? Conveyor Technician: MSM ? Procedure Note Donotsnehater, Image - 11/09/[address] [address] [address] Scan Report Signed Patient: Marisela Awan#: Adela [id number] : 1980Acct:[id number] Age/Sex: 43 / FADM Date: 11/09/24 Loc: HO.ED Attending Dr: Ordering Physician: Laurie Gunderson DO Date of Service: 11/09/24 Procedure(s): CT cervical spine wo IV con Accession Number(s): [id number] cc: Laurie Gunderson DO; KONRAD STUART NP Report Number: [id number]: Total DLP = 508.00 mGy-cm EXAMINATION: CT CERVICAL SPINE WITHOUT CONTRAST CLINICAL INFORMATION: Neck trauma COMPARISON: None available. TECHNIQUE: 3 mm thin axial and 2 mm thin sagittal and coronal images of cervical spine were obtained without contrast. This CT examination was performed using dose optimization techniques as appropriate, variously including the following: *Automated exposure control *Adjustment of mA and/or kV according to patient size (this includes techniques or standardized protocols for targeted exams where dose is matched to indication/reason for exam; i.e. extremities or head) *Use of iterative reconstruction technique. DLP: 1187 mGy/cm. FINDINGS: There is mild reversal of cervical lordosis. The vertebral heights, alignment and disc heights are normal. There is no visible acute fracture, dislocation or subluxation. The craniovertebral junction and C1-C2 alignment is normal. There is mild subchondral cystic changes along bilateral mandibular condyles. There is mild mucoperiosteal thickening bilateral sphenoid sinuses. The mastoid sinuses are clear. The prevertebral and paravertebral soft tissues are normal. There is minimal bilateral apical scarring and pleural thickening. There is small hypodense nodule left thyroid lobe.. CT/CT cervical spine wo IV con IMPRESSION: Reversal of cervical lordosis likely spasm. No visible acute fracture, dislocation or subluxation seen. Fleischner guidelines were followed. Electronically signed by: Adelso Harvey MD 11/09/2024 10:37 AM EST RP Dictated By: Adelso Harvey MD Signed By: <Electronically signed by Adelso Harvey MD in OV> 11/09/24 1037 DD/ 1004 TD/TT: 11/09/24 1023 Conveyor Technician: LUKE [facility] External Provider IMG CT PROCEDURES Edited Result - Final * CT Head w/o Contrast (11/09/2024 9:58 AM EST) Anatomical Region Laterality Modality Head, Neck Computed Tomogra phy 11/09/2024 9:58 AM EST Narrative 11/09/2024 10:37 AM EST ? [facility] ?[address] ?[place] [address] ? CT Scan Report ? Signed ? Patient: Olman Awan ?MR#: M ?? [id number] ? : 1980 ?Acct:[id number] ? Age/Sex: 43 / F ?ADM Date: 11/09/24 ? Loc: HO.ED ? Attending Dr: ? Ordering Physician: Laurie Gunderson DO ?? Date of Service: 11/09/24 ?? Procedure(s): CT head/brain wo IV con ?? Accession Number(s): [id number] ? cc: Laurie Gunderson DO; KONRAD STUART NP ? Report Number: ?? [id number]: Total DLP = ??677.00 mGy-cm ?? EXAMINATION: ?? CT HEAD WITHOUT CONTRAST ? CLINICAL INFORMATION: ?? Head injury, severe headache. ? COMPARISON: ?? None available. ? TECHNIQUE: ?? Contiguous axial imaging was performed from the skull base to vertex ?? without intravenous administration of contrast. ? This CT examination was performed using dose optimization techniques as ?? appropriate, variously including the following: ?? *Automated exposure control ?? *Adjustment of mA and/or kV according to patient size (this includes ?? techniques or standardized protocols for targeted exams where dose is ?? matched to indication/reason for exam; i.e. extremities or head) ?? *Use of iterative reconstruction technique ? FINDINGS: ?? There is no evidence of intracranial hemorrhage or extra-axial fluid ?? collection. ?? There is no mass effect, or edema. No CT evidence of acute territorial ?? infarct. ?? Ventricles, sulci, and cisterns are normal in size and configuration ?? for patient age. No hydrocephalus. No midline shift. ? No significant white matter abnormalities. ?? Normal sella. ? Globes and orbital contents image normally. ?? Extracranial soft tissues demonstrate central vertex focal soft tissue ?? swelling. ? Mild mucosal thickening in the sphenoid sinuses. No air-fluid levels. ?? The remaining paranasal sinuses, mastoid air cells, and tympanic ?? cavities are normally aerated. ?? Right nasal septal deviation with spurring. ? No suspicious bony abnormalities. No fractures. ?? Degenerative changes in the left greater than right TM joints. ? CT/CT head/brain wo IV con ?? IMPRESSION: ?? 1. No acute intracranial abnormalities. No fractures. ?? 2. Vertex focal scalp soft tissue swelling. ? Electronically signed by: ??Ghassan Hyman MD ??11/09/2024 10:35 AM EST RP ? Dictated By: ?Ghassan Hyman MD ? Signed By: ?<Electronically signed by Ghassan Hyman MD in OV> ?11/09/24 1035 ? DD/ 0958 ? TD/TT: 11/09/24 1023 ? Conveyor Technician: ? Procedure Note Mainor Wong - 11/09/[address] [place] [address] [address] Scan Report Signed Patient: Marisela Awan#: M [id number] : 1980Acct:[id number] Age/Sex: 43 / FADM Date: 11/09/24 Loc: HO.ED Attending Dr: Ordering Physician: Laurie Gunderson DO Date of Service: 11/09/24 Procedure(s): CT head/brain wo IV con Accession Number(s): [id number] cc: Laurie Gunderson DO; KONRAD STUART NP Report Number: [id number]: Total DLP = 677.00 mGy-cm EXAMINATION: CT HEAD WITHOUT CONTRAST CLINICAL INFORMATION: Head injury, severe headache. COMPARISON: None available. TECHNIQUE: Contiguous axial imaging was performed from the skull base to vertex without intravenous administration of contrast. This CT examination was performed using dose optimization techniques as appropriate, variously including the following: *Automated exposure control *Adjustment of mA and/or kV according to patient size (this includes techniques or standardized protocols for targeted exams where dose is matched to indication/reason for exam; i.e. extremities or head) *Use of iterative reconstruction technique FINDINGS: There is no evidence of intracranial hemorrhage or extra-axial fluid collection. There is no mass effect, or edema. No CT evidence of acute territorial infarct. Ventricles, sulci, and cisterns are normal in size and configuration for patient age. No hydrocephalus. No midline shift. No significant white matter abnormalities. Normal sella. Globes and orbital contents image normally. Extracranial soft tissues demonstrate central vertex focal soft tissue swelling. Mild mucosal thickening in the sphenoid sinuses. No air-fluid levels. The remaining paranasal sinuses, mastoid air cells, and tympanic cavities are normally aerated. Right nasal septal deviation with spurring. No suspicious bony abnormalities. No fractures. Degenerative changes in the left greater than right TM joints. CT/CT head/brain wo IV con IMPRESSION: 1. No acute intracranial abnormalities. No fractures. 2. Vertex focal scalp soft tissue swelling. Electronically signed by: Ghassan Hyman MD 11/09/2024 10:35 AM EST Dictated By: Ghassan Hyman MD Signed By: <Electronically signed by Ghassan Hyman MD in OV> 11/09/24 1035 DD/ 0958 TD/TT: 11/09/24 1023 Conveyor Technician: [facility] External Provider IMG CT PROCEDURES Edited Result - Final * BI US Breast Limited Left (06/11/2024 1:00 PM EDT) Anatomical Region Laterality Modality Breast Left Ultrasound 06/11/2024 1:00 PM EDT Narrative 06/22/2024 10:02 AM EDT ? [facility] ? [address] ?[place] [address] ? Ultrasound Report ? Signed ? Patient: Moustapha Underwood,Gricela ?MR#: M ?? [id number] ? : 1980 ?Acct:[id number] ? Age/Sex: 43 / F ?ADM Date: 06/11/24 ? Loc: HO.MAMMO ? Attending Dr: Konrad Stuart NP ? Ordering Physician: KONRAD STUART NP ?? Date of Service: 06/11/24 ?? Procedure(s): US breast LT limited mamm only ?? Accession Number(s): [id number] ? cc: KONRAD STUART NP ? EXAMINATION: ?? US DIAGNOSTIC ULTRASOUND BREAST, LEFT ? CLINICAL INFORMATION: ? Prominent lymph node seen on screening mammography 05/25/2021 left ?? axilla. Patient had a prior lipoma removal from left mid axilla. ? COMPARISON: ?? 05/25/2024 mammography. ? TECHNIQUE: ?? Ultrasound of the left axilla is performed with real-time chapman scale ?? imaging and color Doppler. ? FINDINGS: ?? There is no focal suspicious finding. ??There is no solid mass, ?? architectural abnormality, abnormal shadowing, or cystic abnormality. ?? The lymph node in question is identified and has a normal appearance on ?? ultrasound was prominent fatty hilum, normal thickness cortex, and ?? normal danny morphology. Finding is benign. ? Results are provided to the patient at time of visit by the ?? technologist. ? US/US breast LT limited mamm only ?? IMPRESSION: ?? Benign lymph node left axilla. No findings suspicious for malignancy. ? ASSESSMENT: ? BI-RADS BI-RADS 2 ? RECOMMENDATION: ?? Routine annual mammography screening. ? This patient's information was entered into a reminder system with a ?? target due date for their next mammogram. ? Electronically signed by: ??Ghassan Hyman MD ??06/22/2024 09:59 AM EDT RP ? Dictated By: ?Ghassan Hyman MD ? Signed By: ?<Electronically signed by Ghassan Hyman MD in OV> ?06/22/24 0959 ? DD/ 1300 ? TD/TT: 06/11/24 1325 ? Conveyor Technician: ? Procedure Note Marvin, Image - 06/22/2024 [facility] [address] [place] [address] Ultrasound Report Signed Patient: Marisela Awan#: M [id number] : 1980Acct:[id number] Age/Sex: 43 / FADM Date: 06/11/24 Loc: HO.MAMMO Attending Dr: Konrad Stuart NP Ordering Physician: KONRAD STUART NP Date of Service: 06/11/24 Procedure(s): US breast LT limited mamm only Accession Number(s): [id number] cc: KONRAD STUART NP EXAMINATION: US DIAGNOSTIC ULTRASOUND BREAST, LEFT CLINICAL INFORMATION: Prominent lymph node seen on screening mammography 05/25/2021 left axilla. Patient had a prior lipoma removal from left mid axilla. COMPARISON: 05/25/2024 mammography. TECHNIQUE: Ultrasound of the left axilla is performed with real-time chapman scale imaging and color Doppler. FINDINGS: There is no focal suspicious finding. There is no solid mass, architectural abnormality, abnormal shadowing, or cystic abnormality. The lymph node in question is identified and has a normal appearance on ultrasound was prominent fatty hilum, normal thickness cortex, and normal danny morphology. Finding is benign. Results are provided to the patient at time of visit by the technologist. US/US breast LT limited mamm only IMPRESSION: Benign lymph node left axilla. No findings suspicious for malignancy. ASSESSMENT: BI-RADS BI-RADS 2 RECOMMENDATION: Routine annual mammography screening. This patient's information was entered into a reminder system with a target due date for their next mammogram. Electronically signed by: Ghassan Hyman MD 06/22/2024 09:59 AM EDT Dictated By: Ghassan Hyman MD Signed By: <Electronically signed by Ghassan Hyman MD in OV> 06/22/24 0959 DD/ 1300 TD/TT: 06/11/24 1325 Conveyor Technician: us Konrad Stuart ANP IMG US PROCEDURES Final Result * HEPATITIS B CORE ANTIBODY (04/14/2022 7:19 AM EDT) Hepatitis B Core Antibody Nonreactive Nonreactive [facility] Hepatitis C Antibody Nonreactive Nonreactive [facility] Comment: Antibodies to HCV not detected; does not exclude early acute HCV infection. HIV AB/AG Nonreactive Nonreactive [facility] Comment: HIV-1 p24 Ag and/or HIV-1/HIV-2 Ab not detected. ?? A test result that is nonreactive does not exclude the possibility of exposure to or infection with HIV-1 and/or HIV-2. Nonreactive results in this assay for individuals with prior exposure to HIV-1 and/or HIV-2 may be due to antigen and antibody levels that are below the limit of detection of this assay. ?? The [facility] HIV Ag/Ab Combo assay result and supplemental assay results should be interpreted in conjunction with the patient's clinical presentation, history and other laboratory results. ??If the results are inconsistent with clinical evidence, additional testing is suggested to confirm the result. 04/14/2022 7:19 AM EDT Donna Sanchez HISTORICAL/NON ORDERABLE LABS Fi nal Result [facility] [address] * HPV E6/E7 RFLX EMI 16 18/45 (04/03/2022 3:28 PM EDT) HPV mRNA E6/E7 rflx Not Detected Not Detected [facility] Comment: Methodology: Gearcase Assembler-Mediated Amplification This assay detects E6/E7 viral messenger RNA (mRNA) from 14 high-risk HPV types (16,18,31,33,35,39,45,51,52,56,58,59,66,68). Cervical sources are required for HPV testing. If a vaginal source from a patient who has had a total hysterectomy with removal of cervix was submitted, please contact the testing laboratory for alternative testing options. For additional information, please refer to http://education.Racemi/faq/TCT319u0 (This link if provided for information/ educational purposes only.) THIS TEST WAS PERFORMED AT: [facility] [address] [place] [address] FLO[address] [place], [place] ??[phone] SHALONDA METZ MD 04/03/2022 3:28 PM EDT us Donna Sanchez HISTORICAL/NON ORDERABLE LABS Fi nal Result [facility] [address] from Last 3 Months or Most Recently Relevant to Health Maintenance Insurance [facility] [address] PARTIAL Care Teams Air Drill Operator Relationship Specialty Start Date End Date Konrad Stuart ANP [address] [place] [id number] PCP - General Family Medicine 06/21/22
--- OUTSIDE RECORDS SUMMARY | 2024-11-25 17:30 | XMS_ITS | Encounter Summary ---
Author Organization [employer] Address [address] [facility] [address] [place] [address] Care Team Providers Care Cro Name Role Phone Selam Peterson Primary Care Provider [phone] Reason for Visit * Reason Comments Med Refill Encounter Details Date Type Department Care Team (Late st Contact Info) Description 11/03/2024 Refill [facility] [address] [place], [place] [phone] Selam Peterson ANP [address] [place], [place] [phone] Gastroesophageal reflux disease with esophagitis without hemorrhage Social History Tobacco Use Types Packs/Day Years [...] documented as of this encounter Visit Diagnoses Diagnosis Gastroesophageal reflux disease with esophagitis without hemorrhage documented in this encounter Additional Health Concerns Assessment Noted Time PHQ-9 Depression Total Score: 8 08/14/20 24 3:53 PM EDT documented as of this encounter Care Teams Cro Relationship Specialty Start Date End Date Selam Peterson ANP [address] [place] [phone] PCP - General Family Medicine 06/21/22 documented as of this encounter
--- OUTSIDE RECORDS SUMMARY | 2024-11-25 17:30 | XMS_ITS | Encounter Summary ---
Author Organization [employer] Address [address] [facility] 7t [place] [address] Care Team Providers Care Supervisor Carton [employer] Can Supply Name Role Phone Selam Peterson Primary Care Provider [phone] Reason for Referral * Imaging (Routine) - Authorized Specialty Diagnoses / Procedures Referred By Contac t Referred To Contact Radiology Diagnoses Thyroid nodule incidentally noted on imaging study Procedures US Thyroid Selam Peterson ANP [address] [place] [address] Phone: tel: fax: [address] Phone: tel: fax: Referral ID Status Reason Start Date Expiration Date V isits Requested Visits Authorized [id number] Authorized 11/12/2024 11/12/2025 1 1 Encounter Details Date Type Department Care Team (Late st Contact Info) Description 11/12/2024 Orders Only [facility] MEDICINE [address] [place], [place] [phone] Selam Peterson ANP [address] [place] [address] Thyroid nodule incidentally noted on imaging study (Primary Dx) Social History Tobacco Use Types Packs/Day Years [...] AM EDT documented as of this encounter Progress Notes * KANIKA Fox - 11/12/2024 8:43 AM EST Received personal communication from Alecia from dental [...] follow-up to review imaging and discuss. thank you documented in this encounter Plan of Treatment Scheduled Orders Name Type Priority Associated Diagnoses Orde r Schedule US Thyroid Imaging Routine Thyroid nodule incidentally noted on imaging study Expected: 11/12/2024, Expires: 11/12/2025 documented as of this encounter Visit Diagnoses Diagnosis Thyroid nodule incidentally noted on imaging study- Primary documented in this encounter Additional Health Concerns Assessment Noted Time PHQ-9 Depression Total Score: 8 08/14/20 24 3:53 PM EDT documented as of this encounter Care Teams Supervisor [employer] Can [employer] Relationship Specialty Start Date End Date Selam Peterson ANP [address] [place] [address] PCP - General Family Medicine 06/21/22 documented as of this encounter
--- OUTSIDE RECORDS SUMMARY | 2024-11-25 17:30 | XMS_ITS | Encounter Summary ---
Author Organization [employer] Address [address] [facility] 7t [place] [address] Care Team Providers Care Sheet Tailer Name Role Phone Selam Peterson Primary Care Provider [phone] Encounter Details Date Type Department Care Team (Late st Contact Info) Description 11/19/2024 9:00 AM EST Office Visit [facility] OPTOMETRY [address] [place], [place] [phone] Tarart Janell, OD [address] [place], [place] [phone] Hypermetropia, bilateral (Primary Dx); Pinguecula of both eyes Social History Tobacco Use Types Packs/Day Years [...] as of this encounter Progress Notes * Janell Hernandez, OD - 11/19/2024 9:00 AM EST Eye Care Progress Note Patient ID: Olman Gerard is a 43 y.o. female. HPI Patient requests ocular health assessment both eyes (OU). Patient is happy with vision at distance and near both eyes (OU). Patient has never had glasses before. HONG: 2-3 years Last edited by Janell Hernandez, OD on 11/19/2024 9:11 AM. Current Outpatient Medications Medication Sig Dispense Refill pantoprazole (ProtoNix) 20 MG EC tablet TAKE 1 TABLET (20 MG) BY MOUTH BEFORE BREAKFAST DO NOT CRUSH, CHEW, OR SPLIT 90 tablet 0 No current facility-administered medications for this visit. History reviewed. No pertinent past medical history. Past Surgical History: Procedure Laterality Date LIPOMA RESECTION Left 07/24/2023 No family history on file. Tobacco Use: Low Risk (11/19/2024) Tobacco Smoking Tobacco Use: Never Smokeless Tobacco Use: Never Passive Exposure: Not on file Allergies Allergen Reactions Clavulanic Acid Other reaction(s): Rash Penicillins Hives Other reaction(s): GI Intolerance, Rash, unspecified ROS Positive for: Eyes Negative for: Constitutional, Gastrointestinal, Neurological, Skin, Genitourinary, Musculoskeletal,HENT, Endocrine, Cardiovascular, Respiratory, Psychiatric, Allergic/Imm, Heme/Lymph Last edited by Janell Hernandez, OD on 11/19/2024 8:59 AM. Base Eye Exam Visual Acuity (Snellen - Linear) Right Left Both Dist sc 20/20 20/20 Near sc 20/20 Tonometry ([facility]Care , 9:07 AM) Right Left Pressure 17 16 Pupils Pupils APD Right PERRL None Left PERRL None Visual Major Left Right Full Full Extraocular Movement Right Left Full Full Neuro/Psych Oriented x3: Yes Dilation Both eyes: 1.0% tropicamide @ 9:07 AM Slit Lamp and Fundus Exam External Exam Right Left External Normal Normal Slit Lamp Exam Right Left Lids/Lashes Clean and clear Clean and clear Conjunctiva/Sclera Pinguecula T&N Pinguecula T&N Cornea Clear Clear Anterior Chamber Deep and quiet, angles open gr 3 Deep and quiet, angles open gr 3 Iris Flat, round Flat, round Lens Clear Clear Fundus Exam Right Left Vitreous Clear Clear Disc Hermann and healthy, deep cup Hermann and healthy, deep cup C/D Ratio Vertical 0.40 0.40 C/D Ratio Horizontal 0.40 0.40 Macula Flat, even pigmentation Flat, even pigmentation Vessels AV 2/3, normal course and caliber AV 2/3, normal course and caliber Periphery No holes/tears/detachments 360 No holes/tears/detachments 360 Refraction Manifest Refraction (Subjective) Sphere Cylinder Dist VA Right +0.25 Sphere 20/20 Left +0.25 Sphere 20/20 Assessment and Plan Diagnoses and all orders for this visit: Hypermetropia, bilateral - Refractive error WNL both eyes (OU); no spec Rx needed at this time - Excellent near acuity; discussed emerging presbyopia. Patient denies near blur/eyestrain/extendednear work. Pinguecula of both eyes - Discussed the importance of UV protection including wearing sunglasses RTC in 2 years for comprehensive eye exam or sooner as needed Janell Hernandez, OD 11/19/2024, 9:28 AM Sales Utility Representative Source: __ None __ Bilingual Staff __ Qualified Staff Patrol Lady __ Telephone Sales Utility Representative; ID# __ Sales Utility Representative brought by patient (family member, friend, SODIUM METHYLATE OPERATOR, etc) __ In person foreign language interpreter __ Ipad Sales Utility Representative; ID#: Language Spoken During Exam: Mozambican documented in this encounter Plan of Treatment Not on file documented as of this encounter Visit Diagnoses Diagnosis Hypermetropia, bilateral- Primary Pinguecula of both eyes documented in this encounter Additional Health Concerns Assessment Noted Time PHQ-9 Depression Total Score: 8 08/14/20 24 3:53 PM EDT documented as of this encounter Care Teams Sheet Tailer Relationship Specialty Start Date End Date Selam Peterson ANP [address] [place] [address] PCP - General Family Medicine 06/21/22 documented as of this encounter
--- OUTSIDE RECORDS SUMMARY | 2024-11-25 17:30 | XMS_ITS | Encounter Summary ---
Author Organization [employer] Address 75 [facility] 7t [place] [address] Care Team Providers Care Franchise Specialist Name Role Phone Konrad Stuart Primary Care Provider [phone] Encounter Details Date Type Department Care Team (Late st Contact Info) Description 11/09/2024 Orders Only [facility] External Provider, [facility] Social History Tobacco Use Types Packs/Day Years [...] on file documented as of this encounter Procedures Procedure Name Priority Date/Time Associated Diagnosis Comments CT CERVICAL SPINE WO CONTRAST Routine 11/09/2024 10:[address] HEAD WO CONTRAST Routine 11/09/2024 9 :58 AM EST documented in this encounter Results * CT Cervical Spine w/o Contrast (11/09/2024 10:04 AM EST) Anatomical Region Laterality Modality Spine, C-spine Computed Tomogra phy 11/09/2024 10:0 4 AM EST Narrative 11/09/2024 10:40 AM EST ? [facility] ?[address] ?[place] [address] ? CT Scan Report ? Signed ? Patient: Olman Awan ?MR#: M ?? [id number] ? : 1980 ?Acct:[id number] ? Age/Sex: 43 / F ?ADM Date: 11/09/24 ? Loc: HO.ED ? Attending Dr: ? Ordering Physician: Laurie Gunderson DO ?? Date of Service: 11/09/24 ?? Procedure(s): CT cervical spine wo IV con ?? Accession Number(s): [id number] ? cc: Laurie Gunderson DO; KONRAD STUART NP ? Report Number: ?? [id number]: Total DLP = ??508.00 mGy-cm ?? EXAMINATION: [...] 10:37 AM EST RP ? Dictated By: ?Adelso Harvey MD ? Signed By: ?<Electronically signed by Adelso Cata Harvey MD in OV> ?11/09/24 1037 ? DD/ 1004 ? TD/TT: 11/09/24 1023 ? Ferry Captain: MSM ? Procedure Note Mainor Wong - 11/09/[address] [address] [address] Scan Report Signed Patient: Forrest AwanEfraín#: M [id number] : 1980Acct:[id number] Age/Sex: 43 / FADM Date: 11/09/24 Loc: HO.ED Attending Dr: Ordering Physician: Laurie Gunderson DO Date of Service: 11/09/24 Procedure(s): CT cervical spine wo IV con Accession Number(s): [id number] cc: Laurie Gunderson DO; KONRAD STUART NP Report Number: [id number]: Total DLP = 508.00 mGy-cm EXAMINATION: CT [...] Adelso Harvey MD 11/09/2024 10:37 AM EST Dictated By: Adelso Harvey MD Signed By: <Electronically signed by Adelso Harvey MD in OV> 11/09/24 1037 DD/ 1004 TD/TT: 11/09/24 1023 Ferry Captain: [facility] External Provider IMG CT PROCEDURES Edited Result - Final * CT Head w/o Contrast (11/09/2024 9:58 AM EST) Anatomical Region Laterality Modality Head, Neck Computed Tomogra phy 11/09/2024 9:58 AM EST Narrative 11/09/2024 10:37 AM EST ? [facility] ?[address] ?[place] [address] ? CT Scan Report ? Signed ? Patient: Moustapha Underwood,Gricela ?MR#: M ?? [id number] ? : 1980 ?Acct:[id number] ? Age/Sex: 43 / F ?ADM Date: 11/09/24 ? Loc: HO.ED ? Attending Dr: ? Ordering Physician: Laurie Gunderson DO ?? Date of Service: 11/09/24 ?? Procedure(s): CT head/brain wo IV con ?? Accession Number(s): [id number] ? cc: Laurie Gunderson DO; KONRAD STUART WAX PATTERN REPAIRER ? Report Number: ?? [id number]: Total DLP = ??677.00 mGy-cm ?? EXAMINATION: [...] signed by Ghassan Hyman MD in OV> ?11/09/245 ? DD/ 0958 ? TD/TT: 11/09/24 1023 ? Ferry Captain: ? Procedure Note Mainor Wong - 11/09/[address] [place] [address] [address] Scan Report Signed Patient: Marisela Awan#: M [id number] : 1980Acct:[id number] Age/Sex: 43 / FADM Date: 11/09/24 Loc: HO.ED Attending Dr: Ordering Physician: Laurie Gunderson DO Date of Service: 11/09/24 Procedure(s): CT head/brain wo IV con Accession Number(s): [id number] cc: Laurie Gunderson DO; KONRAD STUART NP Report Number: [id number]: Total DLP = 677.00 mGy-cm EXAMINATION: CT [...] by: Ghassan Hyman MD 11/09/2024 10:35 AM [facility] Dictated By: Ghassan Hyman MD Signed By: <Electronically signed by Ghassan Hyman MD in OV> 11/09/24 1035 DD/ 0958 TD/TT: 11/09/24 1023 Ferry Captain: [facility] External Provider IMG CT PROCEDURES Edited Result - Final documented in this encounter Visit Diagnoses Not on filedocumented in this encounter Additional Health Concerns Assessment Noted Time PHQ-9 Depression Total Score: 8 08/14/20 24 3:53 PM EDT documented as of this encounter Care Teams Franchise Specialist Relationship Specialty Start Date End Date Konrad Stuart ANP [address] [place] [address] PCP - General Family Medicine 06/21/22 documented as of this encounter
--- OUTSIDE RECORDS SUMMARY | 2024-11-25 17:30 | XMS_ITS | Encounter Summary ---
Author Organization [employer] Address [address] [facility] 7t [place] [address] Care Team Providers Care Inspector Water Pollution Control Name Role Phone Selam Peterson Primary Care Provider [phone] Reason for Visit * Reason Onset Date Comments ER Follow-up 11/11/2024 Encounter Details Date Type Department Care Team (Late st Contact Info) Description 11/11/2024 Telephone [facility] MEDICINE [address] [place], [place] [phone] Selam Peterson ANP [address] [place], [place] [phone] ER Follow-up Social History Tobacco Use Types Packs/Day Years [...] Encounter - Adriana Blanca RN - 11/12/2024 10:40 AM EST Addressed on other encounter from 11/12/24. * Telephone Encounter - Shana Gaitan - 11/11/2024 9:07 AM EST Patient calling to report ED visit on : Date: 11/09/2024 [place] [facility] [place] Seen for: CONCUSION Symptomatic No *if yes message should go to Triage Patient advised will forward to team nurse for follow up documented in this encounter Plan of Treatment Not on file documented as of this encounter Visit Diagnoses Not on filedocumented in this encounter Additional Health Concerns Assessment Noted Time PHQ-9 Depression Total Score: 8 08/14/20 24 3:53 PM EDT documented as of this encounter Care Teams Inspector Water Pollution Control Relationship Specialty Start Date End Date Selam Peterson ANP [address] [place] [address] PCP - General Family Medicine 06/21/22 documented as of this encounter
== END 2024-11-25 15:39 | disposition home or self-care (01) ==
LOC: HO.US 15:38
PROVIDERS: PCP Nurse Practitioner Primary Care; Visit Provider Nurse Practitioner Primary Care
DX: E04.1 Nontoxic single thyroid nodule (principal)
CPT/HCPCS: 76536

== ENCOUNTER → 2024-11-25 15:42 | Outpatient (BNV) | payer OTHER, SELFPAY | PROVIDERS: PCP Nurse Practitioner Primary Care; Visit Provider Radiology Diagnostic Radiology | DX: E04.2 Nontoxic multinodular goiter (principal) | CPT/HCPCS: 76536 ==

== ENCOUNTER 2024-12-17 14:12 | Outpatient (REF) | payer OTHER, SELFPAY | END 2024-12-17 14:13 | disposition home or self-care (01) | LOC: HO.MAMMO 14:12 | PROVIDERS: PCP Nurse Practitioner Primary Care; Visit Provider Nurse Practitioner Primary Care | DX: Z13.89 Encounter for screening for other disorder (principal) ==

== ENCOUNTER 2025-03-17 08:49 | Outpatient (REF) | payer OTHER, SELFPAY ==
--- OUTSIDE RECORDS SUMMARY | 2025-03-17 10:05 | XMS_ITS | Clinical Summary ---
Author Organization [employer] Address [address] [facility] 7t [place] [address] Care Team Providers Care Fact Checker Name Role Phone Konrad Stuart Primary Care Provider [phone] Allergies Active Allergy Reactions Criticality Noted Date Comments Clavulanic Acid 09/13/2014 Other reaction(s): Rash Penicillins Hives 10/23/2010 Other reaction(s): GI Intolerance, Rash, unspecified Medications pantoprazole (ProtoNix) 20 MG EC tabletIndication s:Gastroesophage al reflux disease with esophagitis without hemorrhage TAKE 1 TABLET BY MOUTH BEFORE BREAKFAST. DO NOT CRUSH, CHEW OR SPLIT. 90 tablet 5 Active Diclofenac Sodium (Voltaren) 1 % gelIndications:F katiana pain, right Apply 1g up to 4x/d to affected joint(s) for pain/swelling 100 g 5 Active Active Problems Problem Noted Date Diagnosed Date [...] obesity 02/19/2023 Irritable bowel syndrome with diarrhea 3 Chronic low back pain 02/19/2022 Tinnitus of left ear 07/04/2021 Duplicated right renal collecting system 019 Vitamin D deficiency 01/20/2019 Allergic rhinitis 03/19/2016 Dysmenorrhea 03/19/2016 Migraine without aura, not refractory 03/19/2016 Encounters Date Type Department Care Team Description 03/15/2025 2:15 PM EDT Office Visit [facility] MEDICINE [address] [place] [address] Konrad Stuart ANP Finger pain, right (Primary Dx) 03/15/2025 Travel 03/15/2025 Telephone [facility] MEDICINE [address] [place] [address] Konrad Stuart ANP Nurse Triage 03/01/2025 2:20 PM EDT Office Visit [facility] [address] [place] [address] Konrad Stuart ANP Finger pain, right (Primary Dx) 03/01/2025 Telephone [facility] MED[facility]INE [address] [place] [address] Konrad Stuart ANP [place] recall 02/03/2025 Refill [facility] [address] [place] [address] Konrad Stuart ANP Gastroesophageal reflux disease with esophagitis without hemorrhage from Last 3 Months Immunizations Immunization Administration Dates Next Due Hep B, Adolescent or Pediatric 06/21/2009,2008,12/21/2008 Influenza Injectable Quadriv alant Preservative Free IIV4 MDCK 07/12/2022,07/18/2021,07/20/2020 Influenza injectable quadriv alent IIV4 with preservative 07/22/2019,07/25/2017 Influenza injectable quadriv alent preservative free 07/17/2018 Influenza, seasonal, injecta ble, preservative free 08/14/2024 TD (adult), 2 Lf tetanus tox oid, preservative free, adsorbed 08/26/2006 Tdap 03/15/2025,03/17/2015,02/26/2012 Social History Tobacco Use Types Packs/Day Years [...] Sign Reading Time Taken Comments Blood Pressure 121/67 03/15/2025 2:23 PM EDT Pulse 72 03/15/2025 2:23 PM EDT Temperature 36.7 ??C (98 ??F) 03/15/2025 2:23 PM EDT Respiratory Rate 18 03/15/2025 2:23 PM EDT Oxygen Saturation 98% 03/01/2025 1:50 PM EDT Inhaled Oxygen Concentration - - Weight 85.7 kg (189 lb) 03/15/2025 2:23 PM EDT Height 162.6 cm (5' 4 ) 03/15/2025 2:23 PM EDT Body Mass Index 32.44 03/15/2025 2:23 PM EDT Plan of Treatment Upcoming Encounters Date Type Department Care Team (Late st Contact Info) Description 06/04/2025 1:00 PM EDT Office Visit [facility] MEDICINE [address] [place] [address] Konrad Stuart ANP [address] [place], [place] [phone] Health Maintenance Due Date Last Done Comments Disability Screening 1980 Family Planning (PISQ) 1996 Hepatitis B Vaccines (1 of 3 - 19+ 3-dose series) 2000 06/21/2009, 01/18/2009, 12/21/2008 Pap Smear 2002 SDOH Screening 07/31/2025 07/31/2024 Depression Screening 08/14/2025 08/14/2024, 08/14/20 24 Alcohol/Substance Use Screening 09/17/2025 09/17/2024 COVID-19 Vaccine ( season) 2025 09/08/2021, 11/21/2020, 10/24/2020 Postponed from 06/28/2024 (Patient Refused) Tobacco Screening 03/15/2026 03/15/2025 Mammogram 06/11/2026 06/11/2024, 04/28, 12/31/2023, Additional history exists Cervical Cancer Screening 04/03/2027 HPV/Cotest 04/03/2027 04/03/2022, 04/03/2022 Zoster Vaccines (1 of 2) 2031 DTaP/Tdap/Td Vaccines (4 - Td or Tdap) 03/15/2035 03/15/2025, 03/17/2015, 02/26/2012, Additional history exists RSV Patients and Patients Aged 60 years [...] patient's age to complete this topic Meningococcal B Vaccine Aged Out No l onger eligible based on patient's age to complete [...] Procedure Name Priority Date/Time Associated Diagnosis Comments XR HAND 3+ VIEWS RIGHT Routine 03/01/2025 2:42 PM EDT Finger pain, right BI US BREAST LIMITED LEFT Routine 06/11/2024 1:00 PM EDT ZZZ HISTORICAL HEPATITIS B CORE ANTIBODY Routine 04/14/2022 7:19 AM EDT ZZZ HISTORICAL HPV E6/E7 RFLX EMI 16 18/45 Routine 04/03/2022 3:28 PM EDT from Last 3 Months or Most Recently Relevant to Health Maintenance Results * XR Hand 3+ Views Right (03/01/2025 2:42 PM EDT) Anatomical Region Laterality Modality Upper Extremities, Hand Right [facility] 03/01/2025 2:42 PM EDT Narrative 03/01/2025 2:53 PM EDT ?[facility] ?[address] ?[place] [address] ?XRay Report ? Signed ? Patient: José Gerard ?MR#: [id number] ?? 2 ? : 1980 ?Acct:[id number] ? Age/Sex: 44 / F ?ADM Date: 05/05/25 ? Loc: HO.HHCX ? Attending Dr: Konrad Stuart ASSOCIATE BRAND MANAGER ? Ordering Physician: KONRAD STUART NP ?? Date of Service: 03/01/25 ?? Procedure(s): XR hand RT min 3V ?? Accession Number(s): [id number] ? cc: KONRAD STUART NP ? EXAMINATION: ?? XR HAND, RIGHT ? CLINICAL INFORMATION: ?? PAIN ? COMPARISON: ?? None available. ? TECHNIQUE: ?? PA, lateral, and oblique views of the right hand. ? FINDINGS: ?? No cortical disruption. ?? No malalignment. ?? No lytic or blastic lesions. ?? No subcutaneous emphysema. ?? No gross edema pattern. ?? No metallic or radiopaque foreign body. ?? Normal joint spaces. ? XR/XR hand RT min 3V ?? IMPRESSION: ?? Normal x-ray right hand. ? Electronically signed by: ??Lauro Wright MD ??03/01/2025 02:50 PM ?? EDT RP ? Dictated By: ?Lauro Malloy MD ? Signed By: ?<Electronically signed by Lauro Franco MD in OV> ? 03/01/25 1450 ? DD/ 1442 ? TD/TT: 03/01/25 1442 ? Interventional Nurse: ? Procedure Note Marvin, Image - 03/02/2025 [place] [address] XRay Report Signed Patient: Christoph Gerard#: [id number] 2 : 1980Acct:[id number] Age/Sex: 44 / FADM Date: 03/01/25 Loc: HO.HHCX Attending Dr: Konrad Stuart NP Ordering Physician: KONRAD STUART NP Date of Service: 03/01/25 Procedure(s): XR hand RT min 3V Accession Number(s): [id number] cc: KONRAD STUART NP EXAMINATION: XR HAND, RIGHT CLINICAL INFORMATION: PAIN COMPARISON: None available. TECHNIQUE: PA, lateral, and oblique views of the right hand. FINDINGS: No cortical disruption. No malalignment. No lytic or blastic lesions. No subcutaneous emphysema. No gross edema pattern. No metallic or radiopaque foreign body. Normal joint spaces. XR/XR hand RT min 3V IMPRESSION: Normal x-ray right hand. Electronically signed by: Lauro Wright MD 03/01/2025 02:50 PM EDT RP Dictated By: Lauro Malloy MD Signed By: <Electronically signed by Lauro Franco MDin OV> 03/01/25 1450 DD/ 1442 TD/TT: 03/01/25 1442 Interventional Nurse: us Konrad Stuart ANP IMG XR PROCEDURES Final Result * BI US Breast Limited Left (06/11/2024 1:00 PM EDT) Anatomical Region Laterality Modality Breast Left Ultrasound 06/11/2024 1:00 PM EDT Narrative 06/22/2024 10:02 AM EDT ? [facility] ? [address] ?[place] [address] ? Ultrasound Report ? Signed ? Patient: Olman Awan ?MR#: M ?? [id number] ? : 1980 ?Acct:[id number] ? Age/Sex: 43 / F ?ADM Date: 06/11/24 ? Loc: HO.MAMMO ? Attending Dr: Konrad Stuart NP ? Ordering Physician: KONRAD STUART NP ?? Date of Service: 06/11/24 ?? Procedure(s): US breast LT limited mamm only ?? Accession Number(s): [id number] ? cc: KONRAD STUART NP ? EXAMINATION: [...] DD/ 1300 ? TD/TT: 06/11/24 1325 ? Interventional Nurse: ? Procedure Note Donslickinterpreter, Image - 06/22/2024 [facility] [address] [place] [address] Ultrasound Report Signed Patient: Marisela Awan#: M [id number] : 1980Acct:[id number] Age/Sex: 43 / FADM Date: 06/11/24 Loc: HO.MAMMO Attending DrVanessa Stuart NP Ordering Physician: KONRAD STUART NP Date of Service: 06/11/24 Procedure(s): US breast LT limited mamm only Accession Number(s): [id number] cc: KONRAD STUART NP EXAMINATION: US DIAGNOSTIC [...] Ghassan Hyman MD 06/22/2024 09:59 AM EDT RP Workstation: [employer] Dictated By: Ghassan Hyman MD Signed By: <Electronically signed by Ghassan Hyman MD in OV> 06/22/24 0959 DD/ 1300 TD/TT: 06/11/24 1325 Interventional Nurse: Konrad BOUDREAUX IMOmid US PROCEDURES Final Result * HEPATITIS B CORE ANTIBODY (04/14/2022 7:19 AM EDT) Hepatitis B Core Antibody Nonreactive Nonreactive [facility] Hepatitis C Antibody Nonreactive Nonreactive [facility] Comment: Antibodies to HCV not detected; does not exclude early acute HCV infection. HIV AB/AG Nonreactive Nonreactive [facility] Comment: HIV-1 p24 Ag and/or [...] detection of this assay. ?? The [employer] HIV Ag/Ab Combo assay result and supplemental assay results should be interpreted in conjunction with the patient's clinical presentation, history and other laboratory results. ??If the results are inconsistent with clinical evidence, additional testing is suggested to confirm the result. 04/14/2022 7:19 AM EDT Donna Sanchez HISTORICAL/NON ORDERABLE LABS Fi nal Result [facility] [address] [place] [address], * HPV E6/E7 RFLX EMI 16 18/45 (04/03/2022 3:28 PM EDT) HPV mRNA E6/E7 rflx Not Detected Not Detected [facility] Comment: Methodology: Surface Miner-Mediated Amplification This assay detects E6/E7 viral messenger RNA (mRNA) from 14 high-risk HPV types (16,18,31,33,35,39,45,51,52,56,58,59,66,68). Cervical sources are required for HPV testing. If a vaginal source from a patient who has had a total hysterectomy with removal of cervix was submitted, please contact the testing laboratory for alternative testing options. For additional information, please refer to http://education.[employer]/faq/QMN636c0 (This link if provided for information/ educational purposes only.) THIS TEST WAS PERFORMED AT: [facility] [address] [place] [address],[address] [place], [place] ??[id number] SHALONDA METZ MD 04/03/2022 3:28 PM EDT us Donna Sanchez HISTORICAL/NON ORDERABLE LABS Fi nal Result [facility] [address] from Last 3 Months or Most Recently Relevant to Health Maintenance Insurance [facility] , [address] [place] [address] Care Teams Fact Checker Relationship Specialty Start Date End Date Konrad Stuart ANP [address] [place] [address] PCP - General Family Medicine 06/21/22
--- OUTSIDE RECORDS SUMMARY | 2025-03-17 10:05 | XMS_ITS | Encounter Summary ---
Author Organization [employer] Address [address] [facility] [address] [place] [address] Care Team Providers Care Supervisor Screen Printing Name Role Phone Selam Peterson Primary Care Provider [phone] Encounter Details Date Type Department Care Team (Latest Contact Info) Description 03/15/2025 Travel Social History Tobacco Use Types Packs/Day [...] as of this encounter Plan of Treatment Upcoming Encounters Date Type Department Care Team (Late st Contact Info) Description 06/04/2025 1:00 PM EDT Office Visit [facility] MED[facility]INE [address] [place] [address] Selam Peterson ANP [address] [place] [address] documented as of this encounter Visit Diagnoses Not on filedocumented in this encounter Additional Health Concerns Assessment Noted Time PHQ-9 Depression Total Score: 8 08/14/20 24 3:53 PM EDT documented as of this encounter Care Teams Supervisor Screen Printing Relationship Specialty Start Date End Date Selam Peterson ANP [address] [place] [phone] PCP - General Family Medicine 06/21/22 documented as of this encounter
--- OUTSIDE RECORDS SUMMARY | 2025-03-17 10:05 | XMS_ITS | Encounter Summary ---
Author Organization [employer] Address [address] [facility] [address] [place] [address] Care Team Providers Care Green Belt Name Role Phone Selam Peterson Primary Care Provider [phone] Encounter Details Date Type Department Care Team (Late st Contact Info) Description 03/15/2025 2:15 PM EDT Office Visit [facility] MEDICINE [address] [place], [place] [phone] Selam Peterson ANP [address] [place], [place] [phone] Finger pain, right (Primary Dx) Social History Tobacco Use Types [...] AM EDT documented as of this encounter Last Filed Vital Signs Vital Sign Reading Time Taken Comments Blood Pressure 121/67 03/15/2025 2:23 PM EDT Pulse 72 03/15/2025 2:23 PM EDT Temperature 36.7 ??C (98 ??F) 03/15/2025 2:23 PM EDT Respiratory Rate 18 03/15/2025 2:23 PM EDT Oxygen Saturation - - Inhaled Oxygen Concentration - - Weight 85.7 kg (189 lb) 03/15/2025 2:23 PM EDT Height 162.6 cm (5' 4 ) 03/15/2025 2:23 PM EDT Body Mass Index 32.44 03/15/2025 2:23 PM EDT documented in this encounter Plan of Treatment Upcoming Encounters Date Type Department Care Team (Late st Contact Info) Description 06/04/2025 1:00 PM EDT Office Visit [facility] MEDICINE [address] [place] [address] Selam Peterson ANP [address] [place] [address] Scheduled Orders Name Type Priority Associated Diagnoses Orde r Schedule Uric acid Lab Routine Finger pain, right Expected: 03/15/2025 (Approximate), Expires: 03/15/2026 Sed Rate by Modified [place] Lab Routine Finger pain, right Expected: 03/15/2025, Expires: 03/15/2026 C-reactive Protein Lab Routine Finger pain, right Expected: 03/15/2025 (Approximate), Expires: 03/15/2026 CLARISA Screen,IFA, with Reflex to Titer and Pattern Lab Routine Finger pain, right Expected: 03/15/2025 (Approximate), Expires: 03/15/2026 Cyclic Citrullinated Peptide (CCP) Antibody (IgG) Lab Routine Finger pain, right Expected: 03/15/2025 (Approximate), Expires: 03/15/2026 CBC auto differential Lab Routine Finger pain, right Expected: 03/15/2025 (Approximate), Expires: 03/15/2026 Rheumatoid Factor Lab Routine Finger pain, right Expected: 03/15/2025, Expires: 03/15/2026 documented as of this encounter Visit Diagnoses Diagnosis Finger pain, right- Primary Pain in soft tissues of limb documented in this encounter Additional Health Concerns Assessment Noted Time PHQ-9 Depression Total Score: 8 08/14/20 24 3:53 PM EDT documented as of this encounter Care Teams Green Belt Relationship Specialty Start Date End Date Selam Peterson ANP [address] [place] [phone] PCP - General Family Medicine 06/21/22 documented as of this encounter
--- OUTSIDE RECORDS SUMMARY | 2025-03-17 10:06 | XMS_ITS | Encounter Summary ---
Author Organization [employer] Address [address] [facility] [address] [place] [address] Care Team Providers Care Design Analyst Name Role Phone Selam Peterson Primary Care Provider [phone] Reason for Visit * Reason Onset Date Comments Nurse Triage 03/15/2025 Encounter Details Date Type Department Care Team (Late st Contact Info) Description 03/15/2025 Telephone [facility] MEDICINE [address] [place], [place] [phone] Selam Peterson ANP [address] [place] [address] Nurse Triage Social History Tobacco Use Types Packs/Day Years [...] encounter Miscellaneous Notes * Telephone Encounter - Lara Rivera RN - 03/15/2025 12:35 PM EDT Call returned to Olman Gerard to triage below. Reports continues to have pain. No swelling, redness or limited ROM. No changes since seen. Ibuprofen not providing any relief. Pt advised of xray results. Pt wishes to be seen again. Agrees to PCP appt today. Protocol Used: Finger Pain (Adult) Protocol-Based Disposition: See in Office or Video Visit within 2 Weeks Future Appointments Date Time Provider Department Center 03/15/2025 2:15 PM KANIKA Fox MEDIC[facility] 06/04/2025 1:00 PM KANIKA Fox [facility] Insurance verified as active per Real Time Eligibility in [facility]. Video visit offer not recorded Positive Triage Question: * Mild pain (e.g., does not interfere with normal activities) and present > 7 days * All higher-acuity triage questions were negative Care Advice Discussed: * Reassurance and Education - Finger Pain * Pain Medicines * Reasons To Call Back - You become worse documented in this encounter Plan of Treatment Upcoming Encounters Date Type Department Care Team (Late st Contact Info) Description 06/04/2025 1:00 PM EDT Office Visit [facility] MED[facility]INE [address] [place] [phone] Selam Peterson ANP [address] [place] [phone] documented as of this encounter Visit Diagnoses Not on filedocumented in this encounter Additional Health Concerns Assessment Noted Time PHQ-9 Depression Total Score: 8 08/14/20 24 3:53 PM EDT documented as of this encounter Care Teams Design Analyst Relationship Specialty Start Date End Date Selam Peterson ANP [address] [place] [address] PCP - General Family Medicine 06/21/22 documented as of this encounter
[2025-03-17 11:10] LABS: MANUAL DIFF FLAG NO
[2025-03-17 11:18] LABS: Basophils Percent Auto 0.5 % (0-2); Eosinophils Absolute Auto 0.1 X10*3/uL (0.0-0.4); Eosinophils Percent Auto 2.1 % (0-4); Hematocrit 40.1 % (37.0-47.0); Hemoglobin 13.9 g/dl (12.0-16.0); Imm Gran Abs Auto 0.01 X10*3/uL (0.00-0.03); Imm Gran Pct Auto 0.2 % (0.0-0.4); Lymphocytes Absolute Auto 1.4 X10*3/uL (1.2-4.9); Mean Corpuscular HGB Conc 34.7 g/dl (31.0-35.0); Mean Corpuscular Hemoglobin 29.8 pg (27.0-33.0); Mean Corpuscular Volume 86.1 fL (80.0-98.0); Mean Platelet Volume 9.6 fL (9.4-12.3); Monocytes Absolute Auto 0.4 X10*3/uL (0.1-1.2); Monocytes Percent Auto 6.9 % (2-11); Neutrophils Absolute Auto 3.7 x10*3/uL (2.0-8.3); Neutrophils Percent Auto 65.3 % (45-73); Platelet Count 316 X10*3/uL (160-400); Red Blood Count 4.66 X10*6/uL (4.20-5.50); Red Cell Distribution Width 12.7 % (11.0-16.0); White Blood Count 5.6 X10*3/uL (4.8-10.8)
[2025-03-17 11:36] LABS: Rheumatoid Factor < 13.0 IU/mL (<15.0)
[2025-03-17 11:37] LABS: C Reactive Protein 0.85 mg/dL (< or = 0.50); Uric Acid 5.5 mg/dL (2.4-5.7)
[2025-03-17 11:52] LABS: TSH reflex Free T4 3.18 uIU/mL (0.32-4.0)
[2025-03-17 12:03] LABS: Erythrocyte Sedimentation Rate 8 MM/HR (0-20)
[2025-03-19 08:18] LABS: Cyclic Citrullinated Peptide <16 UNITS
[2025-03-23 11:49] LABS: ANA Titer 2 1:40 titer; ANA Titer 3 1:40 titer; Anti Nuclear Antibody Pattern Nuclear, Speckled; Anti Nuclear Antibody Screen POSITIVE (NEGATIVE); Anti Nuclear Antibody Titer 1:40 titer
== END 2025-03-17 08:50 | disposition home or self-care (01) ==
LOC: HO.HHCL 08:49
PROVIDERS: Visit Provider Nurse Practitioner Primary Care
DX: M79.644 Pain in right finger(s) (principal); E04.1 Nontoxic single thyroid nodule
CPT/HCPCS: 36415; 84443; 84550; 85025; 85652; 86038; 86039; 86140; 86200; 86431

== ENCOUNTER 2025-05-31 15:30 | Outpatient (REF) | payer OTHER, SELFPAY ==
--- NOTE | ~2025-05-31 | MM_ITS ---
EXAMINATION: MM SCREENING DIGITAL BREAST TOMOSYNTHESIS, BILATERAL CLINICAL INFORMATION: Screening. Asymptomatic. COMPARISON: Mammography: Comparison is made with available priors TECHNIQUE: Digital breast mammography with tomosynthesis is performed in both the craniocaudal and mediolateral oblique views along with computer-aided detection (CAD). FINDINGS: There are scattered areas of fibroglandular density (ACR BI-RADS breast composition Category b). Post surgical changes in the left axilla. There are no significant masses, abnormal calcifications, or other abnormalities. MM/MM tomosynthesis screening BI IMPRESSION: No mammographic evidence of malignancy. ASSESSMENT: BI-RADS BI-RADS 2 - Benign Findings RECOMMENDATION: Routine annual mammography screening. 1 year F/U This examination should not preclude the clinical evaluation of a suspicious palpable abnormality. This patient's information was entered into a reminder system with a target due date for their next mammogram. Electronically signed by: Alicia Freedman DO 06/01/2025 10:18 AM EDT
== END 2025-05-31 15:31 | disposition home or self-care (01) ==
LOC: HO.MAMMO 15:30
PROVIDERS: PCP Nurse Practitioner Primary Care; Visit Provider Nurse Practitioner Primary Care
DX: Z12.31 Encounter for screening mammogram for malignant neoplasm of breast (principal)
CPT/HCPCS: 77063; 77067

== ENCOUNTER → 2025-05-31 15:45 | Outpatient (BNV) | payer OTHER, SELFPAY | PROVIDERS: PCP Nurse Practitioner Primary Care; Visit Provider Internal Medicine | DX: Z12.31 Encounter for screening mammogram for malignant neoplasm of breast (principal) | CPT/HCPCS: 77063; 77067 ==

== ENCOUNTER 2025-06-17 15:33 | Outpatient (REF) | payer OTHER, SELFPAY ==
--- NOTE | ~2025-06-17 | US_ITS ---
EXAMINATION: US THYROID CLINICAL INFORMATION: Thyroid nodule, TR 3. COMPARISON: November 25, 2024. TECHNIQUE: Linear transducer grayscale and color Doppler examination with attention to the region of the thyroid. FINDINGS: SIZE: Measurements of the thyroid lobes and nodules are given in sagittal, anteroposterior and transverse dimensions respectively. Right Thyroid Lobe: 4.3 x 0.9 x 1.1 cm, volume 2.3 mL. Previous: 4.5 x 1.1 x 1.3 cm, volume 3.2 cc. Parenchyma: The gland echotexture is normal. Thyroid vascularity is normal. Left Thyroid Lobe: 3.4 x 0.9 x 1.0 cm, volume 1.6 mL. Previous: 3.8 x 0.86 x 1.2 cm, volume 1.9 cc. Parenchyma: The gland echotexture is normal. Thyroid vascularity is normal. Isthmus: 0.2 cm in maximum AP dimension. Previous: 0.3 Estimated total number of nodules greater than or equal to 1 cm: 0. No thyroid nodule is detected by the technologist. NODES: No lymphadenopathy is seen in the tissue surrounding the thyroid gland. US/US thyroid IMPRESSION: ACR TI-RADS category: 0 No nodules detected. Normal exam. ACR TI-RADS RECOMMENDATION REFERENCE: Ultrasound-guided fine-needle aspiration, followup ultrasound, no further follow up. * TR1 (0 point) and TR2 (2 points): No FNA or follow up. * TR3 (3 points): FNA if more than or equal to 2.5 cm in maximum dimension, followup ultrasound in 1, 3 and 5 years if 1.5 to 2.4 cm in maximum dimension. * TR4 (4-6 points): FNA if more than or equal to 1.5 cm in maximum dimension, followup ultrasound in 1, 2, 3 and 5 years if 1 to 1.4 cm in maximum dimension. * TR5 (more than or equal to 7 points): FNA if more than or equal to 1 cm in maximum dimension, followup ultrasound every year for 5 years if 0.5 to 0.9 cm in maximum dimension. * TR3, TR4 or TR5 nodules that are below the size threshold for followup receive no follow up. Electronically signed by: Lauro Wright MD 06/18/2025 08:01 AM EDT
--- OUTSIDE RECORDS SUMMARY | 2025-06-17 15:35 | XMS_ITS | Clinical Summary ---
Author Organization [employer] Address [address] [facility] [address] [place] [address] Care Team Providers Care Business Management Consultant Name Role Phone Konrad Stuart Primary Care Provider [phone] Allergies Active Allergy Reactions Criticality Noted Date Comments Clavulanic Acid 09/13/2014 Other reaction(s): Rash Penicillins Hives 10/23/2010 Other reaction(s): GI Intolerance, Rash, unspecified Medications Diclofenac Sodium 1 % gelIndications:F katiana pain, right APPLY 1G UP TO FOUR TIMES A DAY TO AFFECTED JOINT(S) FOR PAIN/SWELLING 100 g 5 Active pantoprazole (ProtoNix) 20 MG EC tabletIndication s:Gastroesophage al reflux disease with esophagitis without hemorrhage TAKE 1 TABLET BY MOUTH BEFORE BREAKFAST. DO NOT CRUSH, CHEW OR SPLIT. 90 tablet 5 Active naratriptan (Amerge) 2.5 MG tablet TAKE 1 TABLET BY MOUTH DAILY NEEDED FOR MIGRAINE HEADACHE. MAY REPEAT DOSE ONCE AFTER 4 HOURS Active baclofen (Lioresal) 5 MG tabletIndication s:Chronic low back pain with right-sided sciatica, unspecified back pain laterality Take 1 tab as needed up to TID for back pain 60 tablet 5 Active Active Problems Problem Noted Date [...] Encounters Date Type Department Care Team Description 06/04/2025 1:00 PM EDT Office Visit [address] [address] Konrad Stuart ANP Thyroid nodule (Primary Dx); Finger pain, right; Numbness and tingling in left arm; Elevated blood pressure reading without diagnosis of hypertension; Chronic low back pain with right-sided sciatica, unspecified back pain laterality 06/04/2025 Travel 06/03/[address] [address] Konrad Stuart ANP Insurance 06/03/[address] [address] Konrad Stuart ANP chart prep 05/31/2025 Orders Only [address] [address] Konrad Stuart ANP 05/26/2025 Patient Outreach [address] [address] Konrad Stuart ANP Pre-visit Planning (SDOH Screening negative and Tobacco screening negative) 05/06/[address] [address] Konrad Stuart ANP Gastroesophageal reflux disease with esophagitis without hemorrhage 04/13/[address] [address] Konrad Stuart ANP Finger pain, right 03/17/2025 Results Follow-Up [address] [address] Konrad Stuart ANP C-reactive Protein, Cyclic Citrullinated Peptide (CCP) Antibody (IgG), CLARISA Screen,IFA, with Reflex to Titer and Pattern from Last 3 Months Immunizations Immunization Administration [...] Access Q2 Not on file 07/31/2024 Comments No Sex and Gender Information Value Date Recorded Sex Assigned at Female 08/27/2022 10:15 AM EDT Legal Sex Female 10:15 AM EDT Gender Identity Female 08/27/2022 10:15 AM EDT Sexual Orientation Straight 08/27/2022 10 :15 AM EDT Last Filed Vital Signs Vital Sign Reading Time Taken Comments Blood Pressure 130/82 06/04/2025 1:30 PM EDT Pulse 73 06/04/2025 1:12 PM EDT Temperature 36.7 C (98 F) 03/15/2025 2:23 PM EDT Respiratory Rate 16 06/04/2025 1:12 PM EDT Oxygen Saturation 98% 03/01/2025 1:50 PM EDT Inhaled Oxygen Concentration - - Weight 83.9 kg (185 lb) 06/04/2025 1:12 PM EDT Height 162.6 cm (5' 4 ) 06/04/2025 1:12 PM EDT Body Mass Index 31.76 06/04/2025 1:12 PM EDT Plan of Treatment Health Maintenance Due Date Last Done Comments Family Planning (PISQ) 1996 HPV Vaccines (1 - 3-dose series) 1996 Hepatitis B Vaccines (1 of 3 - 19+ 3-dose series) 2000 06/21/2009, 01/18/2009, 12/21/2008 Influenza Vaccine (#1) 2025 , 07/12/2022, 07/18/2021, Additional history exists Depression Screening 08/14/2025 08/14/2024, 08/14/20 24 Alcohol/Substance Use Screening 09/17/2025 09/17/2024 COVID-19 Vaccine ( season) 2025 09/08/2021, 11/21/2020, 10/24/2020 Postponed from 06/28/2024 (Patient Refused) SDOH Screening 05/26/2026 05/26/2025 Disability Screening 06/04/2026 06/04/2025 Tobacco Screening 06/04/2026 06/04/2025 Cervical Cancer Screening 04/03/2027 HPV/Cotest 04/03/2027 04/03/2022, 04/03/2022 Pap Smear 04/03/2027 Mammogram 05/31/2027 05/31/2025, 08/0 01/2025, 05/31/2025, Additional history exists Zoster Vaccines (1 of 2) 2031 DTaP/Tdap/Td Vaccines (4 - Td or Tdap) 03/15/2035 03/15/2025, 03/17/2015, 02/26/2012, Additional history exists RSV Patients and Patients Aged 60 years or older (1 - 1-dose 75+ series) 2056 HIV Screening Completed 04/14/2022, 11/07/2019 Hepatitis C Screening Completed 04/14/2022 HIB Vaccines Aged Out No longer eligi [...] Years) and At-Risk Patients (6 to 49) Years Aged Out No longer eligible based on patient's age to complete this topic RSV under 20 months Aged Out No longe r eligible based on patient's age to complete this topic Rotavirus Vaccines Aged Out No longer eligible based on patient's age to complete this topic Procedures Procedure Name Priority Date/Time Associated Diagnosis Comments BI MAMMOGRAM SCREENING TOMOSYNTHESIS BILATERAL Routine 05/31/2025 3:34 PM EDT RHEUMATOID FACTOR Routine 03/17/2025 8:5 2 AM EDT Finger pain, right CBC WITH AUTO DIFFERENTIAL Routine 03/17/2025 8:52 AM EDT Finger pain, right CYCLIC CITRULLINATED PEPTIDE (CCP) AB (IGG) Routine 03/17/2025 8:52 AM EDT Finger pain, right CLARISA SCREEN, IFA, W/REFL TITER AND PATTERN Routine 03/17/2025 8:52 AM EDT Finger pain, right C-REACTIVE PROTEIN Routine 03/17/2025 8: 52 AM EDT Finger pain, right SED RATE BY MODIFIED WESTERGREN Routine 03/17/2025 8:52 AM EDT Finger pain, right URIC ACID Routine 03/17/2025 8:52 AM EDT Finger pain, right TSH W/REFLEX TO FT4 Routine 03/17/2025 8 :52 AM EDT Thyroid nodule ZZZ HISTORICAL HEPATITIS B CORE ANTIBODY Routine 04/14/2022 7:19 AM EDT ZZZ HISTORICAL HPV E6/E7 RFLX EMI 16 1845 Routine 04/03/2022 3:28 PM EDT from Last 3 Months or Most Recently Relevant to Health Maintenance Results * BI Mammogram Screening Tomosynthesis Bilateral (05/31/2025 3:34 PM EDT) Anatomical Region Laterality Modality Breast Bilateral Mammography 05/31/2025 3:34 PM EDT Narrative 06/01/2025 10:21 AM EDT [facility] [address] [place] [address] Mammography Report Signed Patient: Olman Awan MR#: [id number] : 1980 Acct:[id number] Age/Sex: 44 / F ADM Date: 05/31/25 Loc: BRETT Attending Dr: Konrad Stuart NP Ordering Physician: KONRAD STUART NP Results: 2Benign B[place] Date of Service: 05/31/25 Follow Up: 1 Year From Orig ina Mammogram Procedure(s): MM tomosynthesis screening BI Accession Number(s): [id number] cc: KONRAD STUART NP EXAMINATION: MM SCREENING DIGITAL BREAST TOMOSYNTHESIS, BILATERAL CLINICAL INFORMATION: Screening. Asymptomatic. COMPARISON: Mammography: Comparison is made with available priors TECHNIQUE: Digital breast mammography with tomosynthesis is performed in both the craniocaudal and mediolateral oblique views along with computer-aided detection (CAD). FINDINGS: There are scattered areas of fibroglandular density (ACR BI-RADS breast composition Category b). Post surgical changes in the left axilla. There are no significant masses, abnormal calcifications, or other abnormalities. MM/MM tomosynthesis screening BI IMPRESSION: No mammographic evidence of malignancy. ASSESSMENT: BI-RADS BI-RADS 2 - Benign Findings RECOMMENDATION: Routine annual mammography screening. 1 year F/U This examination should not preclude the clinical evaluation of a suspicious palpable abnormality. This patient's information was entered into a reminder system with a target due date for their next mammogram. Electronically signed by: Alicia Freedman DO 06/01/2025 10:18 AM EDT Dictated By: Alicia Freedman DO Signed By: <Electronically signed by Alicia Freedman DO in OV> 06/01/25 1018 DD/ 1534 TD/TT: 05/31/25 1556 General Purchasing Agent: Procedure Note Donotuseinterpreter, Image - 06/01/2025 [facility] [address] [place] [address] Mammography Report Signed Patient: Marisela Awan#: M [id number] : 1980Acct:[id number] Age/Sex: 44 / FADM Date: 05/31/25 Loc: [facility] Attending Dr: Konrad Stuart NP Ordering Physician: KONRAD STUART NPResults: 2Benign [place] Date of Service: 05/31/25Follow Up: 1 Year From Orig ina Mammogram Procedure(s): MM tomosynthesis screening BI Accession Number(s): [id number] cc: KONRAD STUART NP EXAMINATION: MM SCREENING DIGITAL BREAST TOMOSYNTHESIS, BILATERAL CLINICAL INFORMATION: Screening. Asymptomatic. COMPARISON: Mammography: Comparison is made with available priors TECHNIQUE: Digital breast mammography with tomosynthesis is performed in both the craniocaudal and mediolateral oblique views along with computer-aided detection (CAD). FINDINGS: There are scattered areas of fibroglandular density (ACR BI-RADS breast composition Category b). Post surgical changes in the left axilla. There are no significant masses, abnormal calcifications, or other abnormalities. MM/MM tomosynthesis screening BI IMPRESSION: No mammographic evidence of malignancy. ASSESSMENT: BI-RADS BI-RADS 2 - Benign Findings RECOMMENDATION: Routine annual mammography screening. 1 year F/U This examination should not preclude the clinical evaluation of a suspicious palpable abnormality. This patient's information was entered into a reminder system with a target due date for their next mammogram. Electronically signed by: Alicia Freedman DO 06/01/2025 10:18 AM EDT RP Dictated By: Alicia Freedman DO Signed By: <Electronically signed by Alicia Freedman DO in OV> 06/01/25 1018 DD/ 1534 TD/TT: 05/31/25 1556 General Purchasing Agent: us Konrad Stuart ANP IMG BI PROCEDURES Edited Result - Final * TSH W/Reflex to FT4 (03/17/2025 8:52 AM EDT) TSH reflex Free T4 3.18 0.32 - 4.0 uIU/mL [facility] Blood Venous blood specimen / Unknown 03/17/2025 8:52 AM EDT 03/17/2025 11:04 AM EDT us Konrad Stuart ANP LAB BLOOD ORDERABLES Final Resul t [facility] [address] [place] [phone] * CBC auto differential (03/17/2025 8:52 AM EDT) White Blood Count 5.6 4.8 - 10.8 X10*3/uL [facility] Red Blood Count 4.66 4.20 - 5.50 X10*6/uL [facility] Hemoglobin 13.9 12.0 - 16.0 g/dl [facility] Hematocrit 40.1 37.0 - 47.0 % [facility] Mean Corpuscular Volume 86.1 80.0 - 98.0 fL [facility] Mean Corpuscular Hemoglobin 29.8 27.0 - 33.0 pg [facility] Mean Corpuscular HGB Conc 34.7 31.0 - 35.0 g/dl [facility] Red Cell Distribution Width 12.7 11.0 - 16.0 % [facility] Platelet Count 316 160 - 400 X10*3/uL [facility] Mean Platelet Volume 9.6 9.4 - 12.3 fL [facility] Neutrophils Percent Auto 65.3 45 - 73 % [facility] Imm Gran Pct Auto 0.2 0.0 - 0.4 % [facility] Lymphocytes Percent Auto 25.0 20 - 40 % [facility] Monocytes Percent Auto 6.9 2 - 11 % [facility] Eosinophils Percent Auto 2.1 0 - 4 % [facility] Basophils Percent Auto 0.5 0 - 2 % [facility] NRBC Pct Auto 0.0 0.0 - 0.2 /100WBC [facility] Neutrophils Absolute Auto 3.7 2.0 - 8.3 x10*3/uL [facility] Imm Gran Abs Auto 0.01 0.00 - 0.03 X10*3/uL [facility] Lymphocytes Absolute Auto 1.4 1.2 - 4.9 X10*3/uL [facility] Monocytes Absolute Auto 0.4 0.1 - 1.2 X10*3/uL [facility] Eosinophils Absolute Auto 0.1 0.0 - 0.4 X10*3/uL [facility] Basophils Absolute Auto 0.0 0.0 - 0.2 X10*3/uL [facility] NRBC Abs Auto 0.000 0.0 - 0.012 X10*3/uL [facility] Blood Venous blood specimen / Unknown 03/17/2025 8:52 AM EDT 03/17/2025 11:04 AM EDT Konrad Stuart [facility] LAB BLOOD ORDERABLES Final Resul t Performing Organization Address [facility] Co de Phone Number [facility] [address] [place] [phone] * Cyclic Citrullinated Peptide (CCP) Antibody (IgG) (03/17/2025 8:52 AM EDT) Cyclic Citrullinated Peptide <16 UNITS [facility] Comment:Reference RangeNegat frank: <20Weak Positive: 20-39Moderate Positive: 40-59Strong Positive: >59THIS TEST WAS PERFORMED AT:[employer] [place] [place] [phone] METZ MD Blood Venous blood specimen / Unknown 03/17/2025 8:52 AM EDT 03/17/2025 11:04 AM EDT Konrad Stuart [facility] LAB BLOOD ORDERABLES Final Resul t Performing Organization Address [facility] Co de Phone Number [facility] [address] [place] [phone] * Sed Rate by Modified Lauroren (03/17/2025 8:52 AM EDT) Pathologist [facility] Erythrocyte Sedimentation Rate 8 0 - 20 MM/HR [facility] Comment:Patients with polycy themia and many hemoglobin abnormalitiesmay have depressed sed rates whereas patients with anemiamay have elevated sed rates. Blood Venous blood specimen / Unknown 03/17/2025 8:52 AM EDT 03/17/2025 11:04 AM EDT Konrad Stuart [facility] BLOOD ORDERABLES Final Resul t Performing Organization Address [facility] Co de Phone Number [facility] [address] [place] [phone] * Rheumatoid Factor (03/17/2025 8:52 AM EDT) Rheumatoid Factor <13.0 <15.0 IU/mL [facility] Blood Venous blood specimen / Unknown 03/17/2025 8:52 AM EDT 03/17/2025 11:04 AM EDT Konrad Stuart [facility] BLOOD ORDERABLES Final Resul t Performing Organization Address [facility] Co de Phone Number [facility] [address] [place] [phone] * (ABNORMAL) C-reactive Protein (03/17/2025 8:52 AM EDT) C Reactive Protein 0.85(H) < or = 0.50 mg/dL [facility] Blood Venous blood specimen / Unknown 03/17/2025 8:52 AM EDT 03/17/2025 11:04 AM EDT Konrad Stuart [facility] BLOOD ORDERABLES Final Resul t Performing Organization Address [facility] Co de Phone Number [facility] [address] [place] [phone] * (ABNORMAL) CLARISA Screen,IFA, with Reflex to Titer and Pattern (03/17/2025 8:52 AM EDT) Pathologist [facility] Anti Nuclear Antibody Screen POSITIVE (A) NEGATIVE [facility] Comment:CLARISA IFA is a first l ine screen for detecting thepresence of up to approximately 150 autoantibodies invarious autoimmune diseases. A positive CLARISA IFA resultis suggestive of autoimmune disease and reflexes totiter and pattern. Further laboratory testing may beconsidered if clinically indicated.For additional information, please refer tohttp://education.[employer]/faq/HUI276(This link is being provided for informational/educational purposes only.) CLARISA Titer 1:40(A) titer [facility] Comment:A low level CLARISA tite r may be present in pre-clinicalautoimmune diseases and normal individuals. Reference Range <1:40 Negative 1:40-1:80 Low Antibody Level >1:80 Elevated Antibody Level CLARISA Pattern Nuclear, Speckled (A) [facility] Comment:Speckled pattern is associated with mixed connectivetissue disease (MCTD), systemic lupus erythematosus(SLE), Sjogren's syndrome, dermatomyositis, andsystemic sclerosis/polymyositis overlap.AC-2,4,5,29: SpeckledInternational Consensus on CLARISA Patterns(https://doi.org/10.1515/shpv-5129-1172) CLARISA TITER 2 (REF LAB) 1:40(A) titer [facility] Comment:A low level CLARISA tite r may be present in pre-clinicalautoimmune diseases and normal individuals. Reference Range <1:40 Negative 1:40-1:80 Low Antibody Level >1:80 Elevated Antibody Level CLARISA Pattern 2 (A) [facility] Comment:Mitotic, Spindle Fib ers Abnormal Flag: AThe spindle fibers between the poles are stained inmitotic cells, associated with cone-shaped decorationof the mitotic poles. The pattern is rare in Sjogren'ssyndrome, systemic lupus erythematosus (SLE), andother connective tissue diseases.AC-25: Spindle FibersInternational Consensus on CLARISA Patterns(https://doi.org/10.1515/zsst-1757-2412) CLARISA TITER 3 1:40(A) titer [facility] Comment:A low level CLARISA tite r may be present in pre-clinicalautoimmune diseases and normal individuals. Reference Range <1:40 Negative 1:40-1:80 Low Antibody Level >1:80 Elevated Antibody Level CLARISA PATTERN 3 (A) [facility] Comment:Mitotic, Intercellul ar Bridge Abnormal Flag: AStaining of the intercellular bridge that connectsdaughter cells by the end of cell division, but beforecell separation. Pattern is rare in systemic sclerosis,Raynaud's phenomenon, and in some malignancies.AC-27: Intercellular BridgeInternational Consensus on CLARISA Patterns(https://doi.org/10.1515/ciwx-4790-1082)THIS TEST WAS PERFORMED AT:[employer] [place] [phone] METZ MD Blood Venous blood specimen / Unknown 03/17/2025 8:52 AM EDT 03/17/2025 11:04 AM EDT Konrad Stuart ANP LAB BLOOD ORDERABLES Final Resul t Performing Organization Address City/[facility]/ZIP Co de Phone Number [facility] [address] [place] [phone] [phone] * Uric acid (03/17/2025 8:52 AM EDT) Uric Acid 5.5 2.4 - 5.7 mg/dL [facility] Blood Venous blood specimen / Unknown 03/17/2025 8:52 AM EDT 03/17/2025 11:04 AM EDT Konrad Stuart [facility] LAB BLOOD ORDERABLES Final Resul t Performing Organization Address [facility] de Phone Number [facility] [address] [place] [phone] * HEPATITIS B CORE ANTIBODY (04/14/2022 7:19 AM EDT) Hepatitis B Core Antibody Nonreactive Nonreactive [facility] Hepatitis C Antibody Nonreactive Nonreactive [facility] Comment: Antibodies to HCV not detected; does not exclude early acute HCV infection. HIV AB/AG Nonreactive Nonreactive [facility] Comment: HIV-1 p24 Ag and/or HIV-1/HIV-2 Ab not detected. A test result that is nonreactive does not exclude the possibility of exposure to or infection with HIV-1 and/or HIV-2. Nonreactive results in this assay for individuals with prior exposure to HIV-1 and/or HIV-2 may be due to antigen and antibody levels that are below the limit of detection of this assay. [facility] HIV Ag/Ab Combo assay result and supplemental assay results should be interpreted in conjunction with the patient's clinical presentation, history and other laboratory results. If the results are inconsistent with clinical evidence, additional testing is suggested to confirm the result. 04/14/2022 7:19 AM EDT Donna Sanchez HISTORICAL/NON ORDERABLE LABS Fi nal Result Performing Organization Address [facility] Co de Phone Number [facility] [address] * HPV E6/E7 RFLX EMI 16 18/45 (04/03/2022 3:28 PM EDT) HPV mRNA E6/E7 rflx Not Detected Not Detected [facility] Comment: Methodology: Financial Services Specialist-Mediated Amplification This assay detects E6/E7 viral messenger RNA (mRNA) from 14 high-risk HPV types (16,18,31,33,35,39,45,51,52,56,58,59,66,68). Cervical sources are required for HPV testing. If a vaginal source from a patient who has had a total hysterectomy with removal of cervix was submitted, please contact the testing laboratory for alternative testing options. For additional information, please refer to http://education.[employer]/faq/CIQ932v7 (This link if provided for information/ educational purposes only.) THIS TEST WAS PERFORMED AT: [employer] [address] [phone] SHALONDA METZ MD 04/03/2022 3:28 PM EDT Donna Sanchez HISTORICAL/NON ORDERABLE LABS Fi nal Result Performing Organization Address [facility] de Phone Number [facility] [address] from Last 3 Months or Most Recently Relevant to Health Maintenance Insurance [facility] , [address] [place] [id number] Care Teams Business Management Consultant Relationship Specialty Start Date End Date Konrad Stuart ANP [address] [place] [phone] PCP - General Family Medicine 06/21/22
== END 2025-06-17 15:34 | disposition home or self-care (01) ==
LOC: HO.US 15:33
PROVIDERS: PCP Nurse Practitioner Primary Care; Visit Provider Nurse Practitioner Primary Care
DX: E04.1 Nontoxic single thyroid nodule (principal)
CPT/HCPCS: 76536

== ENCOUNTER → 2025-06-17 15:35 | Outpatient (BNV) | payer OTHER, SELFPAY | PROVIDERS: PCP Nurse Practitioner Primary Care; Visit Provider Radiology Diagnostic Radiology | DX: E04.1 Nontoxic single thyroid nodule (principal) | CPT/HCPCS: 76536 ==

== ENCOUNTER 2025-07-08 13:30 | Outpatient (REF) | payer OTHER, SELFPAY ==
--- NOTE | 2025-07-08 | EMG_ITS ---
Chief complaint: Patient had lipoma excision from left armpit December 2023. Since then, she feels tingling on left armpit going down left medial arm. Denies weakness. No atrophy. Reason for referral: Evaluate for axillary neuropathy or brachial plexopathy Referred by: Dr. Selam Peterson Procedure done: Left upper extremity NCS/EMG Precautions and/or limitations: None The limb temperature was monitored continuously and remained between 32-36 degrees C during the performance of the NCS. Nerve Conduction Studies Anti Sensory Summary Table ?Stim Site NR Onset (ms) Norm Onset (ms) Peak (ms) Norm Peak (ms) O-P Amp (?V) Norm O-P Amp Site1 Site2 Delta-0 (ms) Dist (cm) Stuart (m/s) Norm Stuart (m/s) Left Med Ante Brach Cutan Anti Sensory (Med Forearm) Elbow ? 1.6 2.3 24.0 Elbow Med Forearm 1.6 0.0 Left Median Anti Sensory (2nd Digit) Wrist ? 2.2 2.8 <3.6 58.6 >10 Wrist 2nd Digit 2.2 14.0 64 Left Radial Anti Sensory (Thumb) Forearm ? 1.6 2.2 <3.1 36.7 Forearm Thumb 1.6 0.0 Left Ulnar Anti Sensory (5th Digit) Wrist ? 2.1 2.9 <3.7 39.3 >15.0 Wrist 5th Digit 2.1 14.0 67 Motor Summary Table ?Stim Site NR Onset (ms) Norm Onset (ms) O-P Amp (mV) Norm O-P Amp iAmp (mV) Amp (1st) (%) Site1 Site2 Delta-0 (ms) Dist (cm) Stuart (m/s) Norm Stuart (m/s) Left Median Motor (Abd Poll Brev) Wrist ? 3.0 <3.9 12.7 >4.5 15.6 100.0 Elbow Wrist 3.6 20.0 56 >45 Elbow ? 6.6 10.8 13.2 85.0 Left Ulnar Motor (Abd Dig Minimi) Wrist ? 2.8 <3.0 7.7 >5 10.0 100.0 B Elbow Wrist 2.7 17.0 63 >45 B Elbow ? 5.5 6.3 8.5 81.8 A Elbow B Elbow 1.5 10.0 67 >45 A Elbow ? 7.0 6.2 8.5 80.5 EMG ?Side Muscle Nerve Root Ins Act Fibs Psw Amp Dur Poly Recrt Int Pat Comment Left 1stDorInt Ulnar C8-T1 Nml Nml Nml Nml Nml 0 Nml Complete Left FlexCarRad Median C6-7 Nml Nml Nml Nml Nml 0 Nml Complete Left Biceps Musculocut C5-6 Incr 1+ 1+ Nml Nml 0 Nml Complete Left Triceps Radial C6-7-8 Nml Nml Nml Nml Nml 0 Nml Complete Left Deltoid Axillary C5-6 Nml Nml Nml Nml Nml 0 Nml Complete Left Supraspinatus SupraScap C5-6 Nml Nml Nml Nml Nml 0 Nml Complete Paraspinal EMG ?Side Muscle Nerve Root Ins Act Fibs Psw Comment Left Cervical Upper Rami Nml Nml Nml Left Cervical Mid Rami Nml Nml Nml Left Cervical Lower Rami Nml Nml Nml Right Cervical Upper Rami Nml Nml Nml Right Cervical Mid Rami Nml Nml Nml Right Cervical Lower Rami Nml Nml Nml FINDINGS: Left MAC showed very small but still within normal response. All other nerves tested were within normal. Concentric needle EMG was performed in selected muscles of the left upper extremity and bilateral cervical paraspinals. Study revealed signs of electric abnormalities as shown in the table above. Left biceps showed increased insertional activity, PSWs and fibrillations. No other C5-6 innervated muscles show denervation. No other axillary innervated muscle such as deltoid showed denervation. Cervical paraspinals did not show signs of denervation. IMPRESSION: 1. This is a minimally abnormal study. 2. There is no electrodiagnostic evidence for median neuropathy, ulnar neuropathy, or cervical radiculopathy. 3. Based on this test, there is no electrodiagnostic evidence for axillary neuropathy. 4. However I can not completely rule out a left C5-6/upper trunk plexopathy. CLINICAL COMMENT: Consider repeat testing in 6 months if symptoms persist. Thank you for your kind referral. Peggy Shine MD, RITU Board Certified, [place] [employer] and Rehabilitation (ABPMR) Board Certified, [place] [employer] of Electrodiagnostic Medicine (ABEM) [place] [id number] [facility]
--- OUTSIDE RECORDS SUMMARY | 2025-07-08 17:26 | XMS_ITS | Encounter Summary ---
Author Organization [employer] Address [address] [facility] [address] [place] [address] Care Team Providers Care Primer Inserting Machine Operator Name Role Phone Selam Peterson Primary Care Provider [phone] Encounter Details Date Type Department Care Team (Late st Contact Info) Description 06/18/2025 Results Follow-Up [facility] MEDICINE [address] [place], [place] [phone] Selam Peterson ANP [address] [place], [place] [phone] [place] Thyroid Social History Tobacco Use Types Packs/Day Years [...] documented as of this encounter Care Teams Primer Inserting Machine Operator Relationship Specialty Start Date End Date Selam Peterson ANP [address] [place] [id number] PCP - General Family Medicine 06/21/22 documented as of this encounter
--- OUTSIDE RECORDS SUMMARY | 2025-07-08 17:26 | XMS_ITS | Encounter Summary ---
Author Organization [employer] Address [address] [facility] [address] [place] [address] Care Team Providers Care Normalizer Name Role Phone Selam Peterson Primary Care Provider Reason for Visit * Reason Comments Med Change Request Encounter Details Date Type Department Care Team (Late st Contact Info) Description 06/21/2025 Refill [facility] MEDICINE [address] [place], [place] [phone] Selam Peterson ANP [address] [place], [place] [phone] Chronic low back pain with right-sided sciatica, unspecified back pain laterality Social History Tobacco Use Types Packs/Day Years [...] as of this encounter Visit Diagnoses Diagnosis Chronic low back pain with right-sided sciatica, unspecified back pain laterality documented in this encounter Additional Health Concerns Assessment Noted Time PHQ-9 Depression Total Score: 8 08/14/20 24 3:53 PM EDT documented as of this encounter Care Teams Normalizer Relationship Specialty Start Date End Date Selam Peterson ANP [address] [place] [address] PCP - General Family Medicine 06/21/22 documented as of this encounter
--- OUTSIDE RECORDS SUMMARY | 2025-07-08 17:26 | XMS_ITS | Clinical Summary ---
Author Organization [employer] Address [address] [facility] [address] [place] [address] Care Team Providers Care Sugar Cane Farm Manager Name Role Phone Konrad Stuart Primary Care Provider [phone] Allergies Active Allergy Reactions Criticality Noted Date [...] Encounters Date Type Department Care Team Description 06/21/2025 Refill [facility] [place] [address] Konrad Stuart ANP Chronic low back pain with right-sided sciatica, unspecified back pain laterality 06/18/2025 Results Follow-Up [facility] [place] [address] Konrad Stuart ANP US Thyroid 06/04/2025 1:00 PM EDT Office Visit [facility] [place] [address] Konrad Stuart ANP Thyroid nodule (Primary Dx); Finger pain, right; Numbness and tingling in left arm; Elevated blood pressure reading without diagnosis of hypertension; Chronic low back pain with right-sided sciatica, unspecified back pain laterality 06/04/2025 Travel 06/03/2025 Telephone [facility] [place] [address] Konrad Stuart ANP Insurance 06/03/2025 Telephone [facility] [place] [address] Konrad Stuart ANP chart prep 05/31/2025 Orders Only [facility] [place] [address] Konrad Stuart ANP 05/26/2025 Patient Outreach [facility] [place] [address] Konrad Stuart ANP Pre-visit Planning (SDOH Screening negative and Tobacco screening negative) 05/06/2025 Refill [facility] [place] [address] Konrad Stuart ANP Gastroesophageal reflux disease with esophagitis without hemorrhage 04/13/2025 Refill [facility] [place] [address] Konrad Stuart ANP Finger pain, right from Last 3 Months Immunizations Immunization Administration [...] 19+ 3-dose series) 2000 06/21/2009, 01/18/2009, 12/21/2008 COVID-19 Vaccine ( season) 2025 09/08/2021, 11/21/2020, 10/24/2020 Influenza Vaccine (#1) 2025 , 07/12/2022, 07/18/2021, Additional history exists Depression Screening 08/14/2025 08/14/2024, 08/14/20 Alcohol/Substance Use Screening 09/17/2025 09/17/2024 SDOH Screening 05/26/2026 05/26/2025 Disability Screening 06/04/2026 [...] Procedure Name Priority Date/Time Associated Diagnosis Comments US THYROID Routine 06/17/2025 4:03 PM EDT Thyroid nodule BI MAMMOGRAM SCREENING TOMOSYNTHESIS BILATERAL Routine 05/31/2025 3:34 PM EDT ZZZ HISTORICAL HEPATITIS B CORE ANTIBODY Routine 04/14/2022 7:19 AM EDT ZZZ HISTORICAL HPV E6/E7 RFLX EMI 16 18/45 Routine 04/03/2022 3:28 PM EDT from Last 3 Months or Most Recently Relevant to Health Maintenance Results * US Thyroid (06/17/2025 4:03 PM EDT) Anatomical Region Laterality Modality Head, Neck Ultrasound 06/17/2025 4:03 PM EDT Narrative 06/18/2025 8:05 AM EDT [address] [address] Ultrasound Report Signed Patient: Olman Awan MR#: [id number] : 1980 Acct:[id number] Age/Sex: 44 / F ADM Date: 06/17/25 Loc: HO.US Attending Dr: Konrad Stuart NP Ordering Physician: KONRAD STUART NP Date of Service: 06/17/25 Procedure(s): US thyroid Accession Number(s): [id number] cc: KONRAD STUART NP EXAMINATION: US THYROID CLINICAL INFORMATION: Thyroid nodule, TR 3. COMPARISON: November 25, 2024. TECHNIQUE: Linear transducer grayscale and color Doppler examination with attention to the region of the thyroid. FINDINGS: SIZE: Measurements of the thyroid lobes and nodules are given in sagittal, anteroposterior and transverse dimensions respectively. Right Thyroid Lobe: 4.3 x 0.9 x 1.1 cm, volume 2.3 mL. Previous: 4.5 x 1.1 x 1.3 cm, volume 3.2 cc. Parenchyma: The gland echotexture is normal. Thyroid vascularity is normal. Left Thyroid Lobe: 3.4 x 0.9 x 1.0 cm, volume 1.6 mL. Previous: 3.8 x 0.86 x 1.2 cm, volume 1.9 cc. Parenchyma: The gland echotexture is normal. Thyroid vascularity is normal. Isthmus: 0.2 cm in maximum AP dimension. Previous: 0.3 Estimated total number of nodules greater than or equal to 1 cm: 0. No thyroid nodule is detected by the technologist. NODES: No lymphadenopathy is seen in the tissue surrounding the thyroid gland. US/US thyroid IMPRESSION: ACR TI-RADS category: 0 No nodules detected. Normal exam. ACR TI-RADS RECOMMENDATION REFERENCE: Ultrasound-guided fine-needle aspiration, followup ultrasound, no further follow up. * TR1 (0 point) and TR2 (2 points): No FNA or follow up. * TR3 (3 points): FNA if more than or equal to 2.5 cm in maximum dimension, followup ultrasound in 1, 3 and 5 years if 1.5 to 2.4 cm in maximum dimension. * TR4 (4-6 points): FNA if more than or equal to 1.5 cm in maximum dimension, followup ultrasound in 1, 2, 3 and 5 years if 1 to 1.4 cm in maximum dimension. * TR5 (more than or equal to 7 points): FNA if more than or equal to 1 cm in maximum dimension, followup ultrasound every year for 5 years if 0.5 to 0.9 cm in maximum dimension. * TR3, TR4 or TR5 nodules that are below the size threshold for followup receive no follow up. Electronically signed by: Lauro Wright MD 06/18/2025 08:01 AM EDT Dictated By: Lauro Malloy MD Signed By: <Electronically signed by Lauro Franco MD in OV> 06/18/25 0801 DD/ 1603 TD/TT: 06/17/25 1606 Solar Sales Associate: Procedure Note Donotuseinterpreter, Image - 06/18/2025 [place] [address] Ultrasound Report Signed Patient: Marisela Awan#: M [id number] : 1980Acct:[id number] Age/Sex: 44 / FADM Date: 06/17/25 Loc: HO.US Attending Dr: Konrad Stuart NP Ordering Physician: KONRAD STUART NP Date of Service: 06/17/25 Procedure(s): US thyroid Accession Number(s): [id number] cc: KONRAD STUART NP EXAMINATION: US THYROID CLINICAL INFORMATION: Thyroid nodule, TR 3. COMPARISON: November 25, 2024. TECHNIQUE: Linear transducer grayscale and color Doppler examination with attention to the region of the thyroid. FINDINGS: SIZE: Measurements of the thyroid lobes and nodules are given in sagittal, anteroposterior and transverse dimensions respectively. Right Thyroid Lobe: 4.3 x 0.9 x 1.1 cm, volume 2.3 mL. Previous: 4.5 x 1.1 x 1.3 cm, volume 3.2 cc. Parenchyma: The gland echotexture is normal. Thyroid vascularity is normal. Left Thyroid Lobe: 3.4 x 0.9 x 1.0 cm, volume 1.6 mL. Previous: 3.8 x 0.86 x 1.2 cm, volume 1.9 cc. Parenchyma: The gland echotexture is normal. Thyroid vascularity is normal. Isthmus: 0.2 cm in maximum AP dimension. Previous: 0.3 Estimated total number of nodules greater than or equal to 1 cm: 0. No thyroid nodule is detected by the technologist. NODES: No lymphadenopathy is seen in the tissue surrounding the thyroid gland. US/US thyroid IMPRESSION: ACR TI-RADS category: 0 No nodules detected. Normal exam. ACR TI-RADS RECOMMENDATION REFERENCE: Ultrasound-guided fine-needle aspiration, followup ultrasound, no further follow up. * TR1 (0 point) and TR2 (2 points): No FNA or follow up. * TR3 (3 points): FNA if more than or equal to 2.5 cm in maximum dimension, followup ultrasound in 1, 3 and 5 years if 1.5 to 2.4 cm in maximum dimension. * TR4 (4-6 points): FNA if more than or equal to 1.5 cm in maximum dimension, followup ultrasound in 1, 2, 3 and 5 years if 1 to 1.4 cm in maximum dimension. * TR5 (more than or equal to 7 points): FNA if more than or equal to 1 cm in maximum dimension, followup ultrasound every year for 5 years if 0.5 to 0.9 cm in maximum dimension. * TR3, TR4 or TR5 nodules that are below the size threshold for followup receive no follow up. Electronically signed by: aLuro Wright MD 06/18/2025 08:01 AM EDT Dictated By: Lauro Malloy MD Signed By: <Electronically signed by Lauro Franco MDin OV> 06/18/25 0801 DD/ 1603 TD/TT: 06/17/25 1606 Solar Sales Associate: us Konrad Stuart [facility] IMG US PROCEDURES Final Result * BI Mammogram Screening Tomosynthesis Bilateral (05/31/2025 3:34 PM EDT) Anatomical Region Laterality Modality Breast Bilateral Mammography 05/31/2025 3:34 PM EDT Narrative 06/01/2025 10:21 AM EDT [facility] [address] [place] [address] Mammography Report Signed Patient: Olman Awan MR#: Adela [id number] : 1980 Acct:[id number] Age/Sex: 44 / F ADM Date: 05/31/25 Loc: HO.MAMMO Attending Dr: Konrad Stuart NP Ordering Physician: KONRAD STUART NP Results: 2Benign Fin dings Date of Service: 05/31/25 Follow Up: 1 Year From Orig inal Mammogram Procedure(s): MM tomosynthesis screening BI Accession Number(s): [id number] cc: KONRAD STUART NP EXAMINATION: MM SCREENING [...] DO 06/01/2025 10:18 AM EDT Dictated By: Ailcia Freedman DO Signed By: <Electronically signed by Alicia Freedman DO in OV> 06/01/25 1018 DD/ 1534 TD/TT: 05/31/25 1556 Solar Sales Associate: Procedure Note Donotuseinterpreter, Image - 06/01/2025 [facility] [address] [place] [address] Mammography Report Signed Patient: Marisela Awan#: M [id number] : 1980Acct:[id number] Age/Sex: 44 / FADM Date: 05/31/25 Loc: HO.MAMMO Attending Dr: Konrad Stuart STOCK SPECULATOR Ordering Physician: KONRAD STUART NPResults: 2Benign [place] Date of Service: 05/31/25Follow Up: 1 Year From Orig inal Mammogram Procedure(s): MM tomosynthesis screening BI Accession Number(s): [id number] cc: KONRAD STUART NP EXAMINATION: MM SCREENING [...] 06/01/25 1018 DD/ 1534 TD/TT: 05/31/25 1556 Solar Sales Associate: Konrad Stuart ANP [facility] PROCEDURES Edited Result - Final * HEPATITIS B CORE ANTIBODY (04/14/2022 7:19 AM EDT) Pathologist [facility] Hepatitis B Core Antibody Nonreactive Nonreactive [facility] Hepatitis C Antibody Nonreactive Nonreactive [facility] Comment: Antibodies to HCV not detected; does not exclude early acute HCV infection. HIV AB/AG Nonreactive Nonreactive [facility] Comment: HIV-1 p24 Ag and/or [...] of detection of this assay. The George Primer Inserting Machine Adjuster HIV Ag/Ab Combo assay result and supplemental assay results should be interpreted in conjunction with the patient's clinical presentation, history and other laboratory results. If the results are inconsistent with clinical evidence, additional testing is suggested to confirm the result. 04/14/2022 7:19 AM EDT Donna Sanchez HISTORICAL/NON ORDERABLE LABS Fi nal Result [facility] [address] * HPV E6/E7 RFLX EMI 16 18/45 (04/03/2022 3:28 PM EDT) Pathologist [facility] HPV mRNA E6/E7 rflx Not Detected Not Detected [facility] Comment: Methodology: Firearms Instructor-Mediated Amplification This assay detects E6/E7 viral messenger RNA (mRNA) from 14 high-risk HPV types (16,18,31,33,35,39,45,51,52,56,58,59,66,68). Cervical sources are required for HPV testing. If a vaginal source from a patient who has had a total hysterectomy with removal of cervix was submitted, please contact the testing laboratory for alternative testing options. For additional information, please refer to http://education.My Pick Box/faq/HDM336z3 (This link if provided for information/ educational purposes only.) THIS TEST WAS PERFORMED AT: [facility] [address] [place] [address],[place] [address] SHALONDA METZ MD 04/03/2022 3:28 PM EDT us Donna Sanchez HISTORICAL/NON ORDERABLE LABS Fi nal Result [facility] [address] from Last 3 Months or Most Recently Relevant to Health Maintenance Insurance [facility] Care Teams Sugar Cane Farm Manager Relationship Specialty Start Date End Date Konrad Stuart ANP [address] [place] [address] PCP - General Family Medicine 06/21/22
== END 2025-07-08 13:31 | disposition home or self-care (01) ==
LOC: HO.NEURO 13:30
PROVIDERS: PCP Nurse Practitioner Primary Care; Visit Provider Nurse Practitioner Primary Care
DX: R20.0 Anesthesia of skin (principal); R20.2 Paresthesia of skin
CPT/HCPCS: 95885; 95886; 95909

== ENCOUNTER → 2025-07-08 13:35 | Outpatient (BNV) | payer OTHER, SELFPAY | PROVIDERS: PCP Nurse Practitioner Primary Care; Visit Provider Physical Medicine & Rehabilitation | DX: R20.0 Anesthesia of skin (principal) | CPT/HCPCS: 95885; 95886; 95909 ==